=== PATIENT | female | born 1975 | race Caucasian/White ===

== ENCOUNTER → 2018-07-14 10:11 | Outpatient (CLI) | payer OTHER, SELFPAY ==
--- NOTE | 2018-07-14 10:34 | BI_ITS ---
MAMMOGRAPHY - BILATERAL SCREENING REASON FOR EXAM: Female, 43 years old. Routine annual screening examination. PERTINENT HISTORY: Mother with breast cancer. Aunt with breast cancer. TECHNIQUE: Digital bilateral breast john (3D mammographic acquisition) in the CC and MLO projections. 2-D mediolateral oblique (MLO) and craniocaudad (CC) views of both breasts were obtained. CAD: Full Field Digital Mammography with Computer Added Detection was performed. COMPARISON: Comparison is made with prior study dated January 14, 2015. FINDINGS: Breast Composition: The breasts are heterogeneously dense, which may obscure small masses. There are no dominant masses or suspicious calcifications. No other significant abnormalities are identified. There has been no significant change since the prior study. BI/SCREENING MAMM (CAD), BILAT IMPRESSION: Stable bilateral screening mammogram. Yearly follow-up mammogram recommended. (A) ASSESSMENT CATEGORY: BIRADS Category 1: Negative. A letter regarding these results will be sent to the patient by the facility within 30 days. Approximately 10% of breast cancers are not detected by mammography. A normal mammogram should not delay biopsy of a clinically suspicious abnormality. [id number] Electronically Signed: Sree Corona MD at 14:48 EDT Tel [phone], Service support ,
== END ==
PROVIDERS: Family Provider Nurse Practitioner; PCP Nurse Practitioner; Visit Provider Nurse Practitioner
DX: Z12.31 Encounter for screening mammogram for malignant neoplasm of breast (principal)
CPT/HCPCS: 77063; 77067

== ENCOUNTER → 2019-03-22 | Outpatient (CLI) | payer OTHER, SELFPAY ==
[2016-08-07 18:12] VITALS: BMI 23.1
[2019-03-22 16:11] LABS: Bacteria 0 SEEN /hpf (None Seen); Mucous, Urine 0 SEEN /hpf (<or=2+); White Blood Cells 0 SEEN /hpf (0-5)
[2019-03-22 17:27] LABS: Absolute Lymphocyte Count 2.71 X10^3/ul (0.83-4.51); Absolute Neutrophil Count 8.3 X10^3/uL (2.0-7.7); Basophil# 0.02 X10^3/uL; Basophil% 0.2 % (0-1); Eosinophil# 0.23 X10^3/uL; Eosinophils% 1.9 % (0-5); Hematocrit 43.2 % (37-47); Hemoglobin 14.6 g/dl (12.0-15.0); Lymphocyte # 2.71 X10^3/ul (4.0); Lymphocyte % 22.7 % (19-41); Mean Corp Hgb Conc 33.8 g/gl (32-36); Mean Corpuscular Hgb 30.4 pg (27.0-32.0); Mean Corpuscular Volume 89.8 fL (81-99); Mean Platelet Vol. 11.7 fl (6.2-12.0); Monocyte# 0.67 X10^3/uL; Monocyte% 5.6 % (0-10); Neutrophil # 8.29 X10^3/uL (2.7-7.7); Neutrophil % 69.3 % (47-70); Platelet Count 244 K/mm3 (150-450); RBC Distribution Width CV 13.2 % (11.6-14.6); RBC Distribution Width SD 43.6 fl (35.1-43.9); Red Blood Count 4.81 M/mm3 (4.2-5.4)
[2019-03-22 17:29] LABS: POSITIVE COUNT NO; POSITIVE DIFFERENTIAL NO; POSITIVE MORPHOLOGY NO
[2019-03-22 17:31] LABS: Color, Urine Yellow (Yellow); Glucose, Dipstick Normal (Normal); Ketone-Dipstick Negative (Negative); Leukocyte Esterase-Dipstick Negative /ul (Negative); Nitrite-Dipstick Negative (Negative); Occult Blood-Urine 150 /ul (Negative); Protein-Dipstick Negative (Negative); Specific Gravity, Urine 1.015 (1.002-1.030); Urine Bilirubin Dipstick Negative (Negative); Urine Clarity Clear (Clear); Urine Urobilinogen Normal (Normal)
[2019-03-22 17:40] LABS: Red Blood Cells-Urine 0-5 SEEN /hpf (0-5); Squamous Epithelial Cells - UA 0-5 SEEN /hpf (5-10); Transitional Epithelial - Ur 0-5 SEEN /hpf (0-5)
[2019-03-22 17:42] LABS: Erythrocyte Sedimentation Rate 13 mm/hr (0-20)
[2019-03-22 18:52] LABS: AST(SGOT) 13 U/L (15-37); Alanine Aminotransfer ALT/SGPT 28 U/L (13-56); Albumin, Serum 3.6 g/dL (3.2-5.0); Alkaline Phosphatase 123 U/L (45-117); Anion Gap 8 (5-15); BUN 14 mg/dL (7-18); BUN/Creat Ratio 20.3 RATIO (10-20); Calcium,Total 8.9 mg/dL (8.5-10.1); Chloride 104 mmol/L (98-107); Creatinine, Serum 0.69 mg/dL (0.55-1.02); EST Glomerular Filtration Rate 98 mL/min (>60); Est Glom Filt Rate - Afr Amer 118 mL/min (>60); Estradiol 99.4 pg/mL; Follicle Stimulating Hormone 5.2 mIU/mL; Free T3 3.2 pg/mL (2.18-3.98); Globulin 3.5 g/dL (2.2-4.2); Glucose 144 mg/dL (74-106); Luteinizing Hormone 7.2 mIU/mL; Potassium 3.7 mmol/L (3.5-5.1); Protein, Total 7.1 g/dL (6.4-8.2); Sodium Level 137 mmol/L (136-145); T4 Free Direct 1.09 ng/dL (0.76-1.46); Thyroid Stim Hormone (TSH) 1.52 uIU/mL (0.358-3.74)
[2019-03-24 13:58] LABS: DHEA Sulfate 82.7 ug/dL (41.2-243.7)
== END | disposition home or self-care (01) ==
LOC: MFPLAB 16:09
PROVIDERS: Family Provider Family Medicine; PCP Family Medicine; Referring Provider Family Medicine; Visit Provider Family Medicine
DX: R63.5 Abnormal weight gain (principal)
CPT/HCPCS: 36415; 80053; 81001; 82533; 82627; 82670; 83001; 83002; 84403; 84439; 84443; 84481; 85025; 85652; 82626

== ENCOUNTER → 2019-04-24 | Outpatient (CLI) | payer OTHER, SELFPAY ==
[2016-08-07 18:12] VITALS: BMI 23.1
--- NOTE | 2019-04-24 15:42 | RAD_ITS ---
STUDY: X-RAY CHEST REASON FOR EXAM: Female, 44 years old. Persistent cough x 6 weeks. History of right lung base nodule. TECHNIQUE: PA and lateral views of the chest. COMPARISON: CT chest with contrast June 25, 2014 FINDINGS: Subcentimeter nodule in the inferolateral right lung base is faintly visualized between the anterior right seventh and eighth ribs on the frontal image. The lungs are otherwise clear and expanded. There is no demonstrated pleural abnormality. Normal size heart. Normal mediastinum and yusra. Normal visualized pulmonary arteries. Normal visualized aortic arch and descending thoracic aorta. Normal visualized thoracic spine. Normal visualized ribs, clavicles, and shoulders. There is no demonstrated abnormality of the visualized soft tissue structures of the upper abdomen. RAD/Chest PA and Lateral IMPRESSION: Stable small nodule inferolateral right lung base. No acute cardiopulmonary disease. Electronically Signed: Prince Sapp MD at 16:26 EDT , Service support ,
== END | disposition home or self-care (01) ==
LOC: RAD.FUTURE 15:41
PROVIDERS: Family Provider Family Medicine; PCP Family Medicine; Referring Provider Nurse Practitioner; Visit Provider Nurse Practitioner
DX: R05 Cough (principal)
CPT/HCPCS: 71046

== ENCOUNTER → 2019-05-20 | Outpatient (CLI) | payer OTHER, SELFPAY ==
[2016-08-07 18:12] VITALS: BMI 23.1
[2019-05-20 10:27] LABS: Anion Gap 8 (5-15); BUN 16 mg/dL (7-18); BUN/Creat Ratio 22.4 RATIO (10-20); Calcium,Total 8.9 mg/dL (8.5-10.1); Chloride 106 mmol/L (98-107); Creatinine, Serum 0.71 mg/dL (0.55-1.02); EST Glomerular Filtration Rate 94 mL/min (>60); Est Glom Filt Rate - Afr Amer 114 mL/min (>60); Glucose 149 mg/dL (74-106); Potassium 4.1 mmol/L (3.5-5.1); Sodium Level 138 mmol/L (136-145)
[2019-05-23 16:50] LABS: Epinephrine, 24Ur 5 ug/24 hr (0-20); Norepinephrine, 24Ur 96 ug/24 hr (0-135); VMA, 24UR 4.9 mg/24 hr (0.0-7.5)
[2019-05-24 13:05] LABS: Dopamine, 24Ur 246 ug/24 hr (0-510); Dopamine, UR 182 ug/L (Undefined); Epinephrine, Ur 4 ug/L (Undefined); Metanephrine, Ur 91 ug/L (Undefined); Metanephrines, 24Ur 123 ug/24 hr (45-290); Norepinephrine, Ur 71 ug/L (Undefined); Normetanephrines, 24Ur 514 ug/24 hr (82-500); Normetanephrines, Ur 381 ug/L (Undefined); VMA, UR 3.6 mg/L (Undefined)
== END | disposition home or self-care (01) ==
LOC: MFPLAB 08:31
PROVIDERS: Family Provider Family Medicine; PCP Family Medicine; Visit Provider Family Medicine
DX: I10 Essential (primary) hypertension (principal)
CPT/HCPCS: 36415; 80048; 82384; 83835; 84244; 84585

== ENCOUNTER → 2019-06-10 06:46 | Outpatient (CLI) | payer OTHER, SELFPAY ==
--- NOTE | 2019-06-10 06:49 | CT_ITS ---
STUDY: CT ABDOMEN WITHOUT CONTRAST REASON FOR EXAM: Female, 44 years old. Hypertension. RADIATION DOSAGE (If Supplied By Facility): CTDIvol = ( 19.35 ) mGy, DLP = ( 657.26 ) mGycm TECHNIQUE: Transaxial images were obtained without intravenous contrast, and oral contrast. Sagittal and coronal images were reconstructed. Individualized dose optimization techniques were used for this CT. COMPARISON: None. FINDINGS: The visualized lung bases are unremarkable. The visualized portions of the heart are within normal limits. Normal liver. Normal gallbladder and extrahepatic biliary system. Normal spleen. Normal pancreas. Normal bilateral adrenal glands. Normal right kidney. Normal left kidney. Normal visualized stomach. Normal small intestine. Normal colon. The appendix is visualized and appears normal. Normal abdominal aorta. Normal inferior vena cava. There is borderline retroperitoneal lymphadenopathy with enlarged nodes no greater than 10mm in the short axis diameter. There is a small umbilical hernia containing fat. Normal osseous structures. CT/Abdomen without IV Contrast IMPRESSION: Normal unenhanced CT of the abdomen. Electronically Signed: Sree Corona, at 8:54 EDT , Service support ,
== END ==
PROVIDERS: Family Provider Family Medicine; PCP Family Medicine; Referring Provider Family Medicine; Visit Provider Family Medicine
DX: I10 Essential (primary) hypertension (principal)
CPT/HCPCS: 74150

== ENCOUNTER → 2019-06-24 12:01 | Outpatient (CLI) | payer OTHER, SELFPAY ==
[2016-08-07 18:12] VITALS: BMI 23.1
[2019-07-02 14:33] LABS: Aldosterone, Serum 1.4 ng/dL (0.0-30.0); Renin, Plasma 7.462 ng/mL/hr (0.167-5.380)
== END ==
PROVIDERS: Family Provider Family Medicine; PCP Family Medicine; Referring Provider Family Medicine; Visit Provider Family Medicine
DX: I10 Essential (primary) hypertension (principal)
CPT/HCPCS: 36415; 82088; 84244

== ENCOUNTER → 2019-07-25 09:33 | Outpatient (CLI) | payer OTHER, SELFPAY ==
[2016-08-07 18:12] VITALS: BMI 23.1
--- NOTE | 2019-07-25 09:35 | RDU_ITS ---
Reason For Study: HTN Right Renal Artery Left Renal Artery Right renal artery ostium Left renal artery ostium 146.0/32.2 133.3/55.6 RSV/EDV. PSV/EDV. Right renal artery proximal Left renal artery proximal PSV/EDV 172.1/68.6 PSV/EDV. 177.4/51.8 . Right renal artery mid 179.5/59.2 Left renal artery mid 169.5/55.7 PSV/EDV. PSV/EDV . Right renal artery distal Left renal artery distal 170.8/56.8 130.2/49.2 PSV/EDV. PSV/EDV. Right Renal Parenchyma Left Renal Parenchyma Upper Pole Medula 65.1/25.9 Left upper pole medulla 63.4/24.5 PSV/EDV. PSV/EDV . Right upper pole medulla EDR .4 . Left upper pole medulla EDR .39 . Right upper pole medulla R.I. .6 . Left upper pole medulla R.I. .61 . Upper Kel Cortx 35.3/11.9 PSV/EDV. UP Cortex 40.0/14.1 PSV/EDV. Right upper pole cortex EDR .34 . Left upper pole cortex EDR .35 . Right upper pole cortex R.I. .66 . Left upper pole cortex R.I. .65 . Right lower Pole medulla 56.0/19.7 Left lower Pole medulla 51.7/19.3 PSV/EDV . PSV/EDV . Right lower pole medulla EDR .35 . Left lower pole medulla EDR .37 . Right lower pole medulla R.I. .65 . Left lower pole medulla R.I. .63 . Lower Pole Cortex 56.0/19.7 Lower Pole Cortx 40.0/12.8 PSV/EDV. PSV/EDV. Left lower pole cortex EDR .32 . Right lower pole cortex EDR .35 . Left lower pole cortex R.I. .68 . Right lower pole cortex R.I. .65 . Left Renal Hilar Right Renal Hilar LT Hilar avg 62.1/23.2 PSV/EDV . Right Hilar avg 120.1/35.7 PSV/EDV. Left hilar acceleration time 50.0 Right hilar acceleration time 30.0 m/sec. m/sec. Left Renal Dimensions Right Renal Dimensions Left kidney size 10.6 cm . Right kidney size 10.1 cm . Left cortical dimension 1.46 cm . Right cortical dimension 1.53 cm . Aorta Proximal abdominal aorta 1.64 x 1.62 cm . Proximal abdominal aorta peak systolic velocity is 102.7 cm/sec . Distal abdominal aorta 1.24 x 1.24 cm . Distal abdominal aorta peak systolic velocity is 86.2 cm/sec . Normal Renal Veins bilat. Interpretation Summary Dimensions of the intra-abdominal aorta appear normal, without evidence of aneurysmal dilatation. Renal artery velocities are bilaterally normal. Acceleration times are normal bilaterally. There is no evidence of hemodynamically significant renal artery stenosis on either side. Renovascular resistance appears to be bilaterally normal . Cortical dimensions are bilaterally normal. Kidneys appear normal in size bilaterally. Ordering Physician: Naveen Cueto Performed By: Fazal Huang RVT
== END ==
PROVIDERS: Family Provider Family Medicine; PCP Family Medicine; Referring Provider Family Medicine; Visit Provider Family Medicine
DX: I10 Essential (primary) hypertension (principal)
CPT/HCPCS: 93975

== ENCOUNTER → 2019-08-01 16:38 | Outpatient (CLI) | payer OTHER, SELFPAY ==
[2016-08-07 18:12] VITALS: BMI 23.1
--- NOTE | 2019-08-01 16:40 | CT_ITS ---
STUDY: CT CHEST WITH CONTRAST REASON FOR EXAM: Female, 44 years old. Cough RADIATION DOSAGE (If Supplied By Facility): DLP = ( 390.52 ) mGycm TECHNIQUE: Transaxial imaging was performed following intravenous administration of 100 ml of Isovue 300 contrast material. Coronal and sagittal reformatted images were created. Individualized dose optimization techniques were used for this CT. COMPARISON: None FINDINGS: Moderate emphysema is present. There are no pulmonary infiltrates or pleural effusions. Right medial lung base atelectasis/scarring is present. There is a right lower lobe 4 mm nodule, series 4 image 76. There is no consolidation. There is no pneumothorax. The heart and pericardium are within normal limits. There is no thoracic lymphadenopathy. There is no evidence of thoracic aortic aneurysm. Images through the upper abdomen demonstrate no significant abnormality. There are no destructive osseous lesions. CT/Chest WITH Contrast IMPRESSION: Moderate emphysema. Right lower lobe 4 mm nodule. One-year follow-up is recommended. Electronically Signed: Palmer Del Valle, at 17:54 EST Tel , Service support ,
== END ==
PROVIDERS: Family Provider Family Medicine; PCP Family Medicine; Referring Provider Family Medicine; Visit Provider Family Medicine
DX: R05 Cough (principal)
CPT/HCPCS: 71260; Q9967

== ENCOUNTER → 2019-10-15 17:54 | Outpatient (CLI) | payer OTHER, SELFPAY ==
[2016-08-07 18:12] VITALS: BMI 23.1
[2019-10-15 17:56] LABS: Bacteria 0 SEEN /hpf (None Seen); Mucous, Urine 0 SEEN /hpf (<or=2+); White Blood Cells 0 SEEN /hpf (0-5)
[2019-10-15 18:19] LABS: Color, Urine Yellow (Yellow); Glucose, Dipstick Normal (Normal); Ketone-Dipstick 5 mg/dl (Negative); Leukocyte Esterase-Dipstick Negative /ul (Negative); Nitrite-Dipstick Negative (Negative); Occult Blood-Urine 150 /ul (Negative); Protein-Dipstick Negative (Negative); Specific Gravity, Urine 1.025 (1.002-1.030); Urine Bilirubin Dipstick Negative (Negative); Urine Clarity Clear (Clear); Urine Urobilinogen Normal (Normal)
[2019-10-15 18:36] LABS: Squamous Epithelial Cells - UA 5-10 SEEN /hpf (5-10)
[2019-10-15 18:37] LABS: Red Blood Cells-Urine 0-5 SEEN /hpf (0-5)
== END ==
PROVIDERS: PCP Family Medicine; Referring Provider Family Medicine; Visit Provider Family Medicine
DX: R35.0 Frequency of micturition (principal)
CPT/HCPCS: 81001; 87086; 87088

== ENCOUNTER → 2019-11-19 12:28 | Outpatient (CLI) | payer OTHER, SELFPAY ==
[2019-11-18 08:29] VITALS: BMI 23.1
[2019-11-19 14:04] LABS: Glucose 110 mg/dL (74-106)
[2019-11-19 14:36] LABS: Vitamin D,25 Hydroxy 16.2 ng/mL
[2019-11-20 20:03] LABS: C-Peptide 3.4 ng/mL (1.1-4.4)
== END ==
PROVIDERS: PCP Family Medicine; Referring Provider Internal Medicine Endocrinology, Diabetes & Metabolism; Visit Provider Internal Medicine Endocrinology, Diabetes & Metabolism
DX: E55.9 Vitamin D deficiency, unspecified (principal); E11.9 Type 2 diabetes mellitus without complications
CPT/HCPCS: 82306; 82947; 84681

== ENCOUNTER → 2020-06-18 | Outpatient (CLI) | payer OTHER, SELFPAY ==
[2019-11-18 08:29] VITALS: BMI 23.1
== END | disposition home or self-care (01) ==
PROVIDERS: PCP Family Medicine; Referring Provider Family Medicine; Visit Provider Family Medicine
DX: Z11.59 Encounter for screening for other viral diseases (principal)
CPT/HCPCS: 87635; U0003

== ENCOUNTER → 2020-06-30 09:36 | Outpatient (CLI) | payer OTHER, SELFPAY ==
[2019-11-18 08:29] VITALS: BMI 23.1
[2020-06-30 13:02] LABS: AST(SGOT) 10 U/L (15-37); Alanine Aminotransfer ALT/SGPT 33 U/L (13-56); Alkaline Phosphatase 123 U/L (45-117); Anion Gap 5 (5-15); BUN 19 mg/dL (7-18); BUN/Creat Ratio 21.5 RATIO (10-20); Calcium,Total 9.2 mg/dL (8.5-10.1); Chloride 104 mmol/L (98-107); Cholesterol 196 mg/dL (200); Creatinine, Serum 0.88 mg/dL (0.55-1.02); EST Glomerular Filtration Rate 73 mL/min (>60); Est Glom Filt Rate - Afr Amer 88 mL/min (>60); Globulin 3.9 g/dL (2.2-4.2); Glucose 93 mg/dL (74-106); High Density Lipoprotein 36 mg/dL; Potassium 3.8 mmol/L (3.5-5.1); Protein, Total 7.9 g/dL (6.4-8.2); Sodium Level 135 mmol/L (136-145); Thyroid Stim Hormone (TSH) 1.36 uIU/mL (0.358-3.74); Triglycerides 153 mg/dL; Very Low Density Lipoprotein 31 mg/dL (5-40)
== END ==
PROVIDERS: PCP Family Medicine; Referring Provider Family Medicine; Visit Provider Family Medicine
DX: E11.9 Type 2 diabetes mellitus without complications (principal)
CPT/HCPCS: 36415; 80053; 80061; 84443

== ENCOUNTER → 2021-01-26 08:23 | Outpatient (CLI) | payer OTHER, SELFPAY ==
[2019-11-18 08:29] VITALS: BMI 23.1
[2021-01-26 10:09] LABS: Hematocrit 44.9 % (37-47); Hemoglobin 14.3 g/dL (12.0-15.0); Mean Corp Hgb Conc 31.8 g/dL (32-36); Mean Corpuscular Hgb 29.1 pg (27.0-32.0); Mean Corpuscular Volume 91.4 fL (81-99); Mean Platelet Vol. 11.7 fl (6.2-12.0); Platelet Count 310 K/mm3 (150-450); RBC Distribution Width CV 13.2 % (11.6-14.6); RBC Distribution Width SD 45.2 fl (35.1-43.9); Red Blood Count 4.91 M/mm3 (4.2-5.4); White Blood Count 10.1 K/mm3 (4.4-11.0)
[2021-01-26 10:40] LABS: ALB/GLOB Ratio 1.1 RATIO (0.9-2.4); AST(SGOT) 11 U/L (15-37); Alanine Aminotransfer ALT/SGPT 21 U/L (13-56); Albumin, Serum 3.8 g/dL (3.2-5.0); Alkaline Phosphatase 111 U/L (45-117); Anion Gap 6 (5-15); BUN 17 mg/dL (7-18); BUN/Creat Ratio 21.6 RATIO (10-20); Chloride 105 mmol/L (98-107); Cholesterol 186 mg/dL (200); Creatinine, Serum 0.79 mg/dL (0.55-1.02); EST Glomerular Filtration Rate 83 mL/min (>60); Est Glom Filt Rate - Afr Amer 101 mL/min (>60); Globulin 3.5 g/dL (2.2-4.2); Glucose 106 mg/dL (74-106); High Density Lipoprotein 41 mg/dL; Potassium 3.7 mmol/L (3.5-5.1); Protein, Total 7.3 g/dL (6.4-8.2); Sodium Level 139 mmol/L (136-145); Triglycerides 83 mg/dL; Very Low Density Lipoprotein 17 mg/dL (5-40)
== END ==
PROVIDERS: PCP Family Medicine; Referring Provider Family Medicine; Visit Provider Family Medicine
DX: I10 Essential (primary) hypertension (principal); E11.9 Type 2 diabetes mellitus without complications
CPT/HCPCS: 36415; 80053; 80061; 85027

== ENCOUNTER → 2021-02-15 14:14 | Outpatient (CLI) | payer OTHER, SELFPAY ==
[2019-11-18 08:29] VITALS: BMI 23.1
--- NOTE | 2021-02-15 14:17 | CT_ITS ---
STUDY: CT CHEST WITHOUT CONTRAST REASON FOR EXAM: Female, 45 years old. LUNG NODULE RADIATION DOSAGE (If Supplied By Facility): CTDIvol = ( 6.84 ) mGy, DLP = ( 220.80 ) mGycm TECHNIQUE: Transaxial imaging was performed without the administration of intravenous contrast material. Individualized dose optimization techniques were used for this CT. COMPARISON: 08/01/19. FINDINGS: There is diffuse emphysema. Reidentified right lower lobe nodule measures approximately 5 mm series 2 image 71. There is no demonstrated pleural abnormality. Normal heart and pericardium. Normal mediastinum. Normal hilar regions. Normal unenhanced pulmonary arteries. Normal aorta arch and descending thoracic aorta. Normal osseous structures. There is no demonstrated abnormality of the visualized upper abdomen. CT/Chest without Contrast IMPRESSION: The right lower lobe pulmonary nodule is overall similar in size compared to prior when accounting for differences in technique and measures approximately 5 mm. Fleischner Society Recommendations for Follow-up and Management of Nodules Smaller than 8 mm Detected Incidentally at Nonscreening CT. Nodule size < or = 4 mm: Low-Risk Patient - No follow-up needed. High-Risk Patient - Follow-up CT at 12 months; if unchanged, no further follow-up. Nodule size > 4-6 mm: Low-Risk Patient - Follow-up CT at 12 months; if unchanged, no further follow-up. High-Risk Patient - Initial follow-up CT at 6-12 months then at 18-24 months if no change. Nodule size > 6-8 mm: Low-Risk Patient - Initial follow-up CT at 6-12 months then at 18-24 months if no change. High-Risk Patient - Initial follow-up CT at 3-6 months then at 9-12 and 24 months if no change. Nodule size > 8 mm: Low-Risk Patient - Follow-up CT at around 3,9 and 24 months. Dynamic contrast-enhanced CT, PET and/or biopsy. High-Risk Patient - Same as for low-risk patient. Low-Risk = Minimal or absent history of smoking and of other known risk factors. High-Risk = History of smoking or of other known risk factors. Electronically Signed: Irvin Rojas MD at 19:49 EDT Tel , Service support ,
== END ==
PROVIDERS: PCP Family Medicine; Referring Provider Family Medicine; Visit Provider Family Medicine
DX: R91.1 Solitary pulmonary nodule (principal)
CPT/HCPCS: 71250

== ENCOUNTER → 2021-08-26 | Outpatient (CLI) | payer OTHER, SELFPAY | END | disposition home or self-care (01) | LOC: MFPLAB 08:27 → LABSPEC 08:28 | PROVIDERS: PCP Family Medicine; Referring Provider Family Medicine; Visit Provider Family Medicine | DX: R39.15 Urgency of urination (principal) | CPT/HCPCS: 87086; 87088 ==

== ENCOUNTER 2022-01-09 03:45 | Emergency (ER) | payer OTHER, SELFPAY ==
[2022-01-09 03:46] VITALS: BP 170/88; PULSE 65; RESP 16; TEMP 36.4; O2SAT 99; BMI 28.5
--- NOTE | 2022-01-09 04:00 | EDS_ITS ---
HPI HPI - GI History of Present Illness Chief Complaint: Abd Pain Informant: patient and spouse/S.O. Abdominal Pain/Flank Pain Onset: Hours (2.5) Context: Sudden Onset (Woke her up from sleep) Timing: Continuous and Waxes and wanes Quality: Aching (And squeezing) Location: RUQ (Radiating into right parascapular area/shoulder/back) Current Severity: Severe Maximum Severity: Severe Worsened by: Nothing Relieved by: Nothing Nausea/Vomiting/Emesis GI Symptom: Positive for Nausea; Negative for Vomiting Diarrhea/Melena/Hematochezia GI Symptom: Negative for Diarrhea, Melena and Hematochezia Associated Symptoms Associated Symptoms: Negative for Dysuria, Frequency and Hematuria Narrative Narrative: Patient ate pizza for dinner before she went to bed, she woke up with excruciating pain in her right upper quadrant radiating into her right mid and upper back, pain is colicky and persistent. Never had this before. Had a history of hysterectomy but no other abdominal surgeries and none recently. No urinary symptoms. Nausea but no vomiting. No jaundice or itching recently. PFSH PFS Medical History Essential tremor H/O urinary tract infection HTN (hypertension) Kidney stones Lupus Rheumatoid arthritis Home Medications lisinopril 10 mg-hydrochlorothiazide 12.5 mg tablet 1 tab PO DAILY 08/05/19 [History Last Taken Unknown] topiramate 100 mg PO BID 01/09/22 [History Last Taken Unknown] Allergy/AdvReac Type Severity Reaction Status Date / Time No Known Allergies Allergy Verified 01/09/22 03:48 Family History Mother Autoimmune disorder Breast cancer Parkinsons disease Hypertension Sister Autoimmune disorder Aunt Breast cancer Brother Diabetes Father Diabetes Myocardial infarction, Onset Age: 49 Hypertension CVA (cerebral vascular accident) Social History Smoking Status: Heavy Smoker (>10/day) ROS ROS ED Constitutional Constitutional ED: Denies chills or fever(s) Eyes Eyes: Denies change in vision or diplopia ENT ENT ED: Denies rhinorrhea or sore throat Cardiovascular Cardiovascular: Denies chest pain or palpitations Respiratory/Chest Respiratory/Chest: Denies cough or dyspnea Gastrointestinal Gastrointestinal: Reports as per HPI and abdominal pain; Denies diarrhea, nausea or vomiting Genitourinary Genitourinary ED: Denies dysuria or hematuria Musculoskeletal Musculoskeletal: Reports as per HPI and back pain; Denies neck pain Integumentary Denies abscess or rash Neurologic Neurologic: Denies headache(s), paresthesias or weakness Psychiatric Psychiatric: Denies anxiety or suicidal thoughts EXAM Physical Exam Const Vital Signs: 01/09/22 03:46 Temperature 97.5 F L Temperature Source Oral Pulse Rate 65 Respiratory Rate 16 Blood Pressure 170/88 H Blood Pressure Mean 115 Pulse Ox 99 Oxygen Delivery Method Room Air Positive well nourished and well developed General Appearance ED: well developed and NAD HEENT Reports moist mucous membranes normocephalic and atraumatic Eyes PERRL and EOMs intact bilaterally Neck full ROM and supple Resp normal respiratory effort and clear to auscultation bilaterally Cardio regular rate, regular rhythm and no murmurs GI non-distended GI Narrative: Very tender right upper quadrant with voluntary guarding, no rebound tenderness. Less tender in the epigastrium, otherwise benign abdomen without any other tenderness. Auscultation: normoactive bowel sounds Palpation: soft Back/Spine no CVA tenderness General Back: other FROM Extremity normal to inspection General Extremety ED: Negative for edema, pulses abnormal or tenderness General Extremity: Negative for edema or pulses abnormal Neuro oriented x3, CN's II-XII intact bilaterally and no sensory deficits noted Sensorium / Orientation: awake and alert Motor Exam: strength 5/5 throughout Skin no rashes or lesions noted and no wounds MDM MDM MDM Narrative Medical decision making narrative: Patient presents Monday overnight shift when ultrasounds not available so I did a bedside screening ultrasound here in the emergency department, she has obvious multiple large shadowing stones. I ultrasounded her after she received morphine and Toradol and her pain was resolved and sonographic Cisse is negative. She had a mild leukocytosis at 12.0, so I sent her for CT scan to look for any signs of acute cholecystitis. It was negative/normal. It did show an incidental dermoid cyst in the right ovary which I discussed with her. It is an incidental finding and not causing her pain right now. After Toradol and morphine she is feeling much better and now on reexamination, she is barely tender and a negative Cisse's. At this time I am comfortable with her going home. I will refer her to the surgeon on- call and we discussed a low-fat diet, and reasons to return. She is comfortable with that plan. Lab Data Attestation: I reviewed the patient's lab results. Labs: Laboratory Results - last 24 hr 01/09/22 01/09/22 01/09/22 04:05 04:05 04:20 WBC 12.0 H RBC 4.74 Hgb 14.4 Hct 43.6 MCV 92.0 MCH 30.4 MCHC 33.0 RDW Std Deviation 46.2 H RDW Coeff of [place] 13.6 Plt Count 281 MPV 11.1 Immature Gran % (Auto) 0.500 Neut % (Auto) 73.5 H Lymph % (Auto) 19.1 [place] % (Auto) 5.3 Eos % (Auto) 1.3 Baso % (Auto) 0.3 Absolute Neuts (auto) 8.8 H Absolute Lymphs (auto) 2.29 Nucleated RBC % 0 Sodium 143 Potassium 3.8 Chloride 113 H Carbon Dioxide 25.0 Anion Gap 5 BUN 26 H Creatinine 0.81 Estim Creat Clear Calc 74.14 Est GFR (MDRD) Af Amer 97 Est GFR (MDRD) Non-Af 80 BUN/Creatinine Ratio 32.1 H Glucose 172 H Calcium 8.6 Total Bilirubin 0.20 AST 27 ALT 34 Alkaline Phosphatase 111 Total Protein 7.1 Albumin 3.6 Globulin 3.5 Albumin/Globulin Ratio 1.0 Lipase 157 Urine Color Yellow Urine Clarity Clear Urine pH 5.0 Ur Specific [place] 1.030 Urine Protein Negative Urine Glucose (UA) Normal Urine Ketones Negative Urine Occult Blood 150 H Urine Nitrite Negative Urine Bilirubin Negative Urine Urobilinogen Normal Ur Leukocyte Esterase Negative Urine RBC 0-5 SEEN Urine WBC 0 SEEN Ur Squamous Epith Cells 0-5 SEEN Urine Bacteria 1+ Urine Mucus 0 SEEN Radiography Diagnostic Testing: Clinical Impression(s) from Imaging Studies Abdomen/Pelvis CT 01/09/22 04:19 IMPRESSION: Dermoid cyst in the right ovary, measures 5.7 cm. Electronically Signed: Isha Herbert MD at 5:24 EDT Reading Location ID and State: [facility] / [place] Tel , Service support , Discharge Plan Triage Chief Complaint: Abd Pain ED Provider: Jarrett Renteria Dx/Rx/DC Orders Clinical Impression: Biliary colic, Cholelithiasis, Dermoid cyst of right ovary Instructions: Discharge Instructions for ..., ED Gallstones with Biliary Colic Prescriptions: No Action lisinopril-hydrochlorothiazide 10-12.5 mg tablet 1 tab PO DAILY RF: 0 topiramate 100 mg Tablet 100 mg PO BID RF: 0 Primary Care Provider: Naveen Cueto Referrals: Naveen Cueto MD [Primary Care Provider] - Noreen Paul MD [STAFF PHYSICIAN] - (Call for appointment) Disposition Disposition: Home, Self Care
[2022-01-09 04:08] LABS: Absolute Lymphocyte Count 2.29 X10^3/uL (0.83-4.51); Absolute Neutrophil Count 8.8 X10^3/uL (2.0-7.7); Basophil# 0.04 X10^3/uL; Basophil% 0.3 % (0-1); Eosinophil# 0.16 X10^3/uL; Eosinophils% 1.3 % (0-5); Hematocrit 43.6 % (37-47); Hemoglobin 14.4 g/dL (12.0-15.0); Lymphocyte # 2.29 X10^3/ul (0.83-4.51); Lymphocyte % 19.1 % (19-41); Mean Corpuscular Hgb 30.4 pg (27.0-32.0); Mean Platelet Vol. 11.1 fl (6.2-12.0); Monocyte# 0.63 X10^3/uL; Monocyte% 5.3 % (0-10); NRBC Flagged by Analyzer 0 % (0-5); Neutrophil # 8.81 X10^3/uL (2.7-7.7); Neutrophil % 73.5 % (47-70); Platelet Count 281 K/mm3 (150-450); RBC Distribution Width CV 13.6 % (11.6-14.6); RBC Distribution Width SD 46.2 fl (35.1-43.9); Red Blood Count 4.74 M/mm3 (4.2-5.4)
[2022-01-09] MEDS: Ondansetron 4 MG/2 ML Vial IV (04:08)
[2022-01-09] MEDS: Ketorolac 30 MG/ML Syringe IV (04:08)
[2022-01-09] MEDS: Morphine 4 MG/ML Syringe IV (04:09)
--- NOTE | 2022-01-09 04:19 | CT_ITS ---
STUDY: CT ABDOMEN AND PELVIS WITH CONTRAST REASON FOR EXAM: Female, 46 years old. RUQ pain RADIATION DOSAGE (If Supplied By Facility): CTDIvol = ( 14.67 ) mGy, DLP = ( 974.67 ) mGycm TECHNIQUE: Transaxial images were obtained from the dome of the diaphragm to the symphysis pubis without oral contrast. IV 100mL Isovue-300 was administered. Sagittal and coronal images were reconstructed. Individualized dose optimization techniques were used for this CT. COMPARISON: None. FINDINGS: The visualized lung bases are unremarkable. The visualized portions of the heart are within normal limits. Normal liver. Normal gallbladder and extrahepatic biliary system. Normal spleen. Normal pancreas. Normal bilateral adrenal glands. Normal right kidney. Normal left kidney. Normal visualized stomach. Normal small intestine. Normal colon. The appendix is visualized and appears normal. Normal abdominal aorta. Normal inferior vena cava. Normal retroperitoneum. Normal urinary bladder. Dermoid cyst in the right ovary. Normal abdominal wall. Normal osseous structures. CT/Abdomen/Pelvis W IV Cont ONLY IMPRESSION: Dermoid cyst in the right ovary, measures 5.7 cm. Electronically Signed: Isha Herbert MD at 5:24 EDT ,
[2022-01-09 04:25] LABS: Mucous, Urine 0 SEEN /hpf (<or=2+); White Blood Cells 0 SEEN /hpf (0-5)
[2022-01-09 04:26] LABS: Color, Urine Yellow (Yellow); Glucose, Dipstick Normal (Normal); Ketone-Dipstick Negative (Negative); Leukocyte Esterase-Dipstick Negative /ul (Negative); Nitrite-Dipstick Negative (Negative); Occult Blood-Urine 150 /ul (Negative); Protein-Dipstick Negative (Negative); Urine Bilirubin Dipstick Negative (Negative); Urine Clarity Clear (Clear); Urine Urobilinogen Normal (Normal)
[2022-01-09 04:32] LABS: AST(SGOT) 27 U/L (15-37); Alanine Aminotransfer ALT/SGPT 34 U/L (13-56); Albumin, Serum 3.6 g/dL (3.2-5.0); Alkaline Phosphatase 111 U/L (45-117); Anion Gap 5 (5-15); BUN 26 mg/dL (7-18); BUN/Creat Ratio 32.1 RATIO (10-20); Calcium,Total 8.6 mg/dL (8.5-10.1); Chloride 113 mmol/L (98-107); Creatinine, Serum 0.81 mg/dL (0.55-1.02); EST Glomerular Filtration Rate 80 mL/min (>60); Est Glom Filt Rate - Afr Amer 97 mL/min (>60); Estimated Creatinine Clearance 74.14 ml/min; Globulin 3.5 g/dL (2.2-4.2); Glucose 172 mg/dL (74-106); Lipase 157 U/L (73-393); Potassium 3.8 mmol/L (3.5-5.1); Protein, Total 7.1 g/dL (6.4-8.2); Sodium Level 143 mmol/L (136-145)
[2022-01-09 05:00] LABS: Bacteria 1+ /hpf (None Seen); Red Blood Cells-Urine 0-5 SEEN /hpf (0-5); Squamous Epithelial Cells - UA 0-5 SEEN /hpf (5-10)
== END 2022-01-09 05:52 | disposition home or self-care (01) ==
PROVIDERS: Emergency Provider Emergency Medicine; PCP Family Medicine; Visit Provider Emergency Medicine
DX: K80.70 Calculus of gallbladder and bile duct without cholecystitis without obstruction (principal); M06.9 Rheumatoid arthritis, unspecified; M32.9 Systemic lupus erythematosus, unspecified; D27.0 Benign neoplasm of right ovary; G25.0 Essential tremor; Z87.440 Personal history of urinary (tract) infections; Z87.442 Personal history of urinary calculi; Z79.899 Other long term (current) drug therapy; F17.200 Nicotine dependence, unspecified, uncomplicated
CPT/HCPCS: 74177; 80053; 81001; 83690; 85025; 96361; 96374; 96375; 99283; J7040; Q9967; A4216; J2405

== ENCOUNTER 2022-01-17 10:15 | Day surgery (SDC) | payer OTHER, SELFPAY ==
[2022-01-15 10:52] LABS: Hemoglobin A1c 5.8 % (3.8-5.6)
[2022-01-17] VITALS (12 sets, daily range): BP systolic 124–165; BP diastolic 43–75; PULSE 48–77; RESP 14–16; TEMP 36.2–37; O2SAT 93–99; BMI 29.2
--- NOTE | 2022-01-17 10:23 | EKG12_ITS ---
Test Reason : PRE OP Blood Pressure : / mmHG Vent. Rate : 058 BPM Atrial Rate : 058 BPM P-R Int : 182 ms QRS Dur : 080 ms QT Int : 412 ms P-R-T Axes : 063 042 054 degrees QTc Int : 404 ms Sinus bradycardia Otherwise normal ECG Confirmed by MAHIN MCLEAN, OMKAR ([id number]), news videotape editor JAE HARRIS ([id number]) on 01/19/2022 10:08:39 AM Referred By: Noreen Paul Confirmed By:OMKAR STOCKTON MD
--- NOTE | 2022-01-17 10:31 | PCM.HP.BLA ---
History and Physical Date of Admission: 01/17/22 Date of Service: 01/13/22 MR#:[id number]:[id number]: GWEN OROPEZA [facility] #:[id number]:[id number] Provider:Jones Holt/Sex: 46/F [facility] Vital Signs 01/13/22 09:40 Height 5 ft 4 in Weight: 166 lb BMI 28.5 BP 129/79 H Blood Pressure Location Rt brachial Position Sitting Respiration 16 Intake Visit Reasons: 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 Chief Complaint: gallbladder Laboratory Manager Required: No Is patient in pain?: No Allergies No Known Allergies Allergy (Verified 01/13/22 09:39) Medications lisinopril 10 mg-hydrochlorothiazide 12.5 mg tablet 1 tab PO DAILY 08/05/19 [History Confirmed 01/13/22] topiramate 100 mg PO BID 01/09/22 [History Confirmed 01/13/22] PFSH Medical History (Updated 01/13/22 @ 09:40 by Gricelda Briggs) Essential tremor H/O urinary tract infection HTN (hypertension) Kidney stones Lupus Rheumatoid arthritis Surgical History (Updated 01/13/22 @ 09:40 by Gricelda Briggs) S/P hysterectomy S/P tubal ligation Family History Mother Autoimmune disorder Breast cancer Parkinsons disease Hypertension Sister Autoimmune disorder Aunt Breast cancer Brother Diabetes Father Diabetes Myocardial infarction, Onset Age: 49 Hypertension CVA (cerebral vascular accident) Social History (Updated 01/13/22 @ 09:40 by Gricelda Briggs) Smoking Status: Heavy Smoker (>10/day) alcohol intake: current HPI HPI HPI: GWEN OROPEZA, is a 46 F who presents to the office today for bowel sounds/right upper quadrant pain. Patient states that started having abdominal pain Monday night about 1:30 in the morning after eating around 10:00. Patient did go to the ER early Monday due to the pain. Patient had CT abdomen pelvis done which did not show signs of acute cholecystitis and did not note gallstones on the report however a bedside ultrasound was done by the ER physician did note gallstones. Patient's pain and nausea did improve. Patient did not vomit. Patient's white blood count was 12 with normal LFTs. Patient currently states pain is improved and she has been really watching her diet and not eating as much but has been able to drink. Did discuss CT abdomen pelvis with our radiologist who agree there are 2 gallstones in the gallbladder one 12 mm and one 9 mm. Patient has not had the COVID-vaccine. ROS General General: Yes weight change, appetite and fatigue; No colon cancer or breast cancer HEENT HEENT: No difficulty swallowing, eye injury, eye surgery, swollen glands or hoarseness Endo Endocrine: Yes diabetes mellitus; No thyroid disease, thyroid cancer, Hair loss, heat intolerance or cold intolerance Skin Skin: No rash or changing moles Musc Musculoskeletal: Yes rheumatoid arthritis; No back problems, arthritis, gout or joint pain Cardio Cardiovascular: Yes high blood pressure; No murmur, pacemaker, heart disease, atrial fibrillation, heart attack, heart stent, palpitations, shortness of breat with exertion or chest pain Psych Psychiatric: No depression, anxiety or hearing voices Resp Respiratory: No shortness of breath, No sleep apnea, No cough, No COPD, No asthma, No emphysema and No wheezing Gastro Gastrointestinal: Yes abdominal pain, No nausea or vomiting, No diarrhea, No constipation, No blood in stool, No acid reflux, No hemorrhoids, No ulcers, Yes gallbladder problem and No black,tarry stools Yony Hematologic: No blood thinners, No blood disorders, No bleeding, No anemia and No blood clots Neuro Neurologic: No abnormal speech and No confusion Exam Const General: cooperative, healthy appearing, comfortable and no acute distress [facility] Head: normocephalic and atraumatic Neck Neck: normal visual inspection Resp Effort & Inspection: normal respiratory effort Cardio Rate: regular rate GI Inspection: non-distended Palpation: soft, no guarding and nontender Skin General: no rashes or lesions noted Neuro General: patient oriented x3 Extrem General: no clubbing, cyanosis or edema Psych Affect: normal affect COVID (Procedure Consent) Procedure Criteria Procedure Criteria: Yes Elective The surgeon/proceduralist and patient have discussed in detail the risk of exposure to and/or potential harm posed by the COVID-19 virus with having a surgery/procedure at this time versus the risk of delaying the surgery/procedure. It is not possible to know either the risk of delaying the surgery or procedure or chance of getting an infection with perfect accuracy, but a joint decision was made between the patient and the surgeon/proceduralist to proceed at this time with the scheduled surgery/procedure as indicated on the consent form. Assessment and Plan Assessment and Plan (1) Cholelithiasis: Status: Acute Plan - Dr. Noreen Paul MD: Did review CT abdomen pelvis with the patient as well as talk to the radiologist who agreed there were gallstones near the neck of the gallbladder. Reviewed the anatomy with the patient and discussed the procedure: laparoscopic cholecystectomy with cholangiograms, possible open. Review risks including but not limited to bleeding, infection, hernia, bile leak, retained gallstones requiring another procedure ERCP- Endoscopic Retrograde Cholangiopancreatography, injury to another organ (bile ducts, common bile duct, small bowel, etc.) and conversion to an open procedure. All questions were answered. Noreen Paul M.D. Pager: [phone] [facility] [address] [place] [address] [place] [address] Office: [phone] Coding Level of Care Code Off vis,new,level 3 Diagnoses Cholelithiasis K80.20 01/13/22 0958<Electronically signed by Noreen Paul MD>Date Noreen Paul MD
[2022-01-17] MEDS: Lactated Ringers 1,000 ML 15 ML IV ×2 (11:15→13:48)
[2022-01-17 11:36] LABS: Bedside Glucose 113 mg/dL (74-106)
--- NOTE | 2022-01-17 11:45 | GALL_PTH ---
PATIENT: GWEN OROPEZA [place] [facility] [place][id number] AGE/SX: 46/F ROOM: RE01/17/[address]: Dr. Noreen Paul MD : 1975 BED: DIS: 01/17/2022 SPEC #: [id number] RECD: 01/17/22 13:44 STATUS: MARCY REJeison #: [id number] NIKOS: 01/17/22 11:[address]: Noreen Paul DEPT: SURGICAL PATHOLOGY RECD BY: Emily Macdonald ENTERED: 01/17/22 14:09 SP TYPE: LORA CHRISTY DR: Dr. Luis Cueto MD Tissues: Gallbladder, NOS Procedures: Surgery Specimen Level III HEADER OPERATION: Laparoscopic cholecystectomy with IOC PRE-OP DIAGNOSIS: Cholelithiasis TISSUE SUBMITTED: Gallbladder MICROSCOPIC DIAGNOSIS Gallbladder, cholecystectomy: Chronic cholecystitis and cholelithiasis. SJ:ashlyn 01/18/2022 MICROSCOPIC DESCRIPTION Slides are reviewed. GROSS DESCRIPTION Received is one container labeled with the patient's name and designated gallbladder. The specimen consists of a gallbladder measuring 9 cm in length and up to 4 cm in diameter. The external surface is pink-grady, smooth and glistening for the most part. Focally it is granular, hemorrhagic and contains cautery artifact. The gallbladder contains green-yellow mucoid bile and multiple yellowish-orange mulberry stones measuring in aggregate 4 x 2 x 1 cm and 0.2 to 1.5 cm in greatest dimension. The mucosa is bile-stained and without any mass lesions. The gallbladder wall measures up to 0.2 cm in thickness. Focal areas also show increased amount of subserosal fat. Host Hostess sections from the gallbladder and the cystic duct are submitted in one cassette. / SJ:ashlyn 01/17/2022 TC:3 CPT: 95507
[2022-01-17] MEDS: Cefotetan 2 GM in 0.9% NS 100 ML IV (12:00)
--- NOTE | 2022-01-17 12:08 | RAD_ITS ---
INDICATION: PAIN EXAMINATION/TECHNIQUE: Fluoroscopic cholangiogram limited spot intraoperative films are presented for evaluation. Total Fluoroscopic Time: 11.3 seconds AND number of Fluoroscopic Images: 3 COMPARISON: CT abdomen and pelvis from 01/09/2022 FINDINGS: A catheter is seen cannulating the cystic duct. There is opacification of the gallbladder, cystic duct common bile duct and the intrahepatic ducts. There are no filling defects strictures or other abnormal findings in the biliary tree. Common bile duct tapers normally with normal excretion of contrast into the duodenum. RAD/Cholangiogram/ O R,Initial IMPRESSION: Unremarkable intraoperative cholangiogram. Please see intraoperative report for detailed findings. Electronically Signed: Yannick Marte, at 15:47 EDT ,
--- NOTE | 2022-01-17 13:06 | OP.PCM_ITS ---
Report of Operation Date of Procedure: 01/17/22 Pre-Operative Diagnosis: Cholelithiasis, right upper quadrant pain, cholecystit is Post-Operative Diagnosis: Same Surgery/Procedure Performed:: Laparoscopic cholecystectomy with cholangiograms Surgeon: Noreen Paul varying exceptionalities teacher: Tamra Hubbard Type of Anesthesia: General/Supplemental Anesthesiologist: Kahlil Golden Special Medications: Cefotetan 2 g IV x1 Specimen's removed: Gallbladder and stones Estimated Blood Loss (mL): < 10 cc Description of Procedure: Indications: this is a 46 year-old female who developed abdominal pain/nausea/vomiting and on workup was found to have cholelithiasis, with a normal common bile duct. Laparoscopic cholecystectomy was elected. Description procedure: The patient was placed on operating table in supine position. A timeout was completed verifying correct patient, procedure, site, position and special equipment prior to beginning procedure. General Anesthesia was induced. The abdomen was prepped and draped in usual sterile fashion. An incision was made in the natural skin line above the umbilicus. The fascia was elevated and incised. The peritoneum was elevated and incised. Entry into the peritoneum was confirmed visually and no bowel was noted in the vicinity of the incision. Vieira trocar was placed. The abdomen was insufflated with carbon dioxide to a pressure of 12-15 mmHg. Patient tolerated insufflation well. The laparoscope was then inserted and abdomen inspected. No injuries from initial trocar placement were noted. Additional trochars were then inserted in the following locations 5 mm trocar in the epigastrium and 2 more 5 mm trochars along the right costal margin. The abdomen was inspected no abnormalities were found. The table is placed in reverse Trendelenburg position with the right side up. The dome of the gallbladder was grasped with atraumatic grasper passed through the lateral port and retracted over the dome of the liver. Infundibulum was then grasped with atraumatic grasper through the midclavicular port and retracted to the right lower quadrant. This maneuver exposed Calot's triangle. The peritoneum overlying the gallbladder infundibulum was then incised and cystic duct and artery identified and circumferentially dissected. Joyner catheter was used for cholangiograms. The cholangiogram showed good filling of the common bile duct into the duodenum with no filling defects?after initial cholangiograms did not show emptying to the duodenum however no filling defects were seen?glucagon was given and Joyner catheter was tightened on the gallbladder contrast was visualized in duodenum, good filling of the right and left bile ducts as well. The cystic duct and artery were then doubly clipped and divided close to the gallbladder. The gallbladder then dissected from its peritoneal attachments by electrocautery. Hemostasis was checked and the gallbladder and contained stones were removed using the endoscopic retrieval bag through the umbilical port. The gallbladder is passed off table as specimen. The gallbladder fossa was irrigated with saline and hemostasis obtained. There is no evidence of bleeding from the gallbladder fossa or cystic artery leakage of bile from the cystic duct stump. Secondary trochars removed under direct vision. No bleeding was noted the trocar sites. The laparoscope was withdrawn and umbilical trocar removed. The abdomen was allowed to collapse. The fascia of the 12 mm trocar was closed with a [id number] 0 Vicryl suture. The skin was closed with sutures of 4-0 Monocryl and Steri-Strips. The patient was extubated. The patient tolerated procedure well and was taken to the postanesthesia care unit in stable condition. Complications none
--- NOTE | 2022-01-17 13:10 | EX.PCM.DISCH ---
Discharge Instructions Diet Discharge Diet: Light diet - advance as tolerated Activity Discharge Activity: May Not Drive (while taking narcotic pain medications. Or if too much abdominal pain to slam on the brakes if needed) May shower in (days): 1 Lifting Restrictions: no lifting >20 lbs x 2 wks, no strenuous exercise for 4 wks Dressing / Incision Call your doctor if your incision/area has: Continuous Slow Oozing, Sudden Increased Bleeding, Increased Pain/ Swelling, Increased Redness, Foul Smelling Discharge and Swelling at the incision site Call your doctor if you observe: Fever of 101 or Higher Remove Dressing in: 2 days Cleanse incision/area with: Soap & Water Additional Dressing/Incision Instructions:: Steri-Strips will fall off in 7 to 10 days, if they do not fall off okay to remove after 10 days. Follow Up Care Please Follow Up With: Noreen Paul MD When: Call the office for a follow-up appointment 2 weeks; after 5 PM and on the weekends call [phone] with any concerns. Test Results: Test results from this visit will be discussed in further detail at your follow-up appointment, if applicable. Discharge Plan Admission Attending Provider: Noreen Paul Primary Care Provider: Naveen Cueto Discharge Orders/Prescriptions Prescriptions: New hydrocodone-acetaminophen 5-325 mg tablet 1 tab PO Q4H PRN (Reason: pain) 3 Days Qty: 14 RF: 0 Continued lisinopril-hydrochlorothiazide 10-12.5 mg tablet 1 tab PO DAILY RF: 0 topiramate 100 mg Tablet 100 mg PO BID RF: 0 Referrals / Follow Up: Naveen Cueto MD [Primary Care Provider] - Disposition Disposition (needs filled in before D/C Order can be placed): Home, Self Care
[2022-01-17 13:55] LABS: Bedside Glucose 258 mg/dL (74-106)
== END 2022-01-17 16:22 | disposition home or self-care (01) ==
LOC: SDC 10:17 → AC 10:17
PROVIDERS: Anesthesiology; PCP Family Medicine; Referring Provider Surgery; Visit Provider Surgery
PROC: (CPT 47610; principal; 2022-01-17 11:25)
DX: K80.10 Calculus of gallbladder with chronic cholecystitis without obstruction (principal); M06.9 Rheumatoid arthritis, unspecified; M32.9 Systemic lupus erythematosus, unspecified; E11.9 Type 2 diabetes mellitus without complications; F17.200 Nicotine dependence, unspecified, uncomplicated; I10 Essential (primary) hypertension; G25.0 Essential tremor; Z87.440 Personal history of urinary (tract) infections; Z87.442 Personal history of urinary calculi; Z79.899 Other long term (current) drug therapy
CPT/HCPCS: 47563; 00790; 36415; 74300; 76000; 82962; 83036; 87426; 88304; 93005; J7120; J1610; J2405

== ENCOUNTER → 2022-04-11 | Outpatient (CLI) | payer OTHER, SELFPAY ==
--- NOTE | 2022-04-11 15:43 | BI_ITS ---
MAMMOGRAPHY - BILATERAL SCREENING REASON FOR EXAM: Female, 47 years old. Routine annual screening examination. PERTINENT HISTORY: Mother with breast cancer. Aunts with breast cancer. TECHNIQUE: Digital bilateral breast becca (3D mammographic acquisition) in the CC and MLO projections. 2-D mediolateral oblique (MLO) and craniocaudad (CC) views of both breasts were obtained. CAD: Full Field Digital Mammography with Computer Added Detection was performed. COMPARISON: Comparison is made with prior study dated 07/14/2018 and 01/14/2015. FINDINGS: Breast Composition: The breasts are heterogeneously dense, which may obscure small masses. There are no dominant masses or suspicious calcifications. Stable small benign-appearing bilateral axillary lymph nodes. No other significant abnormalities are identified. There has been no significant change since the prior study. BI/SCRN MAMM (CAD)W/BECCA BILAT IMPRESSION: Stable bilateral screening mammogram. Yearly follow-up mammogram recommended. (A) ASSESSMENT CATEGORY: BIRADS Category 2: Benign. A letter regarding these results will be sent to the patient by the facility within 30 days. Approximately 10% of breast cancers are not detected by mammography. A normal mammogram should not delay biopsy of a clinically suspicious abnormality. [id number] Electronically Signed: Sree Corona MD at 8:26 EDT ,
== END | disposition home or self-care (01) ==
LOC: OPBI 15:42
PROVIDERS: PCP Family Medicine; Visit Provider Family Medicine
DX: Z12.31 Encounter for screening mammogram for malignant neoplasm of breast (principal)
CPT/HCPCS: 77063; 77067

== ENCOUNTER → 2023-12-09 | Outpatient (CLI) | payer OTHER, SELFPAY ==
--- OUTSIDE RECORDS SUMMARY | 2023-12-09 07:51 | XMS RPT_ITS | CCD ---
Author Name Unknown Address [address] [place] [address] Organization [facility] Care Team Providers Care Archival Records Clerk Name Role Phone Taty Brown Unavailable Kadie Kaur Unavailable Unavailable Rachel Andersen Unavailable Unavailable Unavailable Unavailable Allergies Allergy Classification Reported Allergen(s) Allergy Type Date of Onset Reaction(s) Facility (3 sources) Doxycycline Drug Allergy [facility] Work Phone: Medications Completed/Discontinued Medications Medication Drug Class(es) Dates Sig (Normalized) Sig (Original) 200 actuat albuterol 0.09 mg/actuat metered dose inhaler (3 sources) beta2-Adrenergic Agonist Start: 03-27-2019 ProAir HFA 108 (90 Base) MCG/ACT Inhalation Aerosol Solution 2 (two) Puff tid or qid for 0 days Quantity: 1 {Inhaler} Refills: 0 Ordered: 27-Mar-2019 Taty Brown CNP, CNP, Mary E Start : 27-Mar-2019 Active amoxicillin 500 mg oral capsule (3 sources) Penicillin-class Antibacterial Start: 12-19-2014 End: 05-19-2015 take 1 capsule by mouth twice daily AMOXICILLIN, 500MG (Oral Capsule) 1 (one) Capsule bid for 0 days Quantity: 28 {Capsule} Refills: 0 Ordered: 19-May-2015 MONICA Chacon Start : 19-Dec-2014 End : 19-May-2015 Inactive amoxicillin 875 mg / clavulanate 125 mg oral tablet (3 sources) Penicillin-class Antibacterial Start: 05-10-2017 End: 05-24-2017 take 1 tablet by mouth twice daily Augmentin 875-125 MG Oral Tablet 1 (one) Tablet bid for 14 days Quantity: 28 {Tablet} Refills: 0 Ordered: 10-May-2017 Taty Brown CNP IsabellTaty gonzalez CNP Start : 10-May-2017 End : 24-May-2017 Inactive azithromycin 250 mg oral tablet (3 sources) Macrolide Antimicrobial Start: 08-26-2016 End: 10-12-2016 take 1 tablet by mouth once daily Zithromax Z-Marlon 250 MG Oral Tablet uad Tablet one qd until gone for 0 days Quantity: 1 {Package} Refills: 0 Ordered: 12-Oct-2016 Rachel Andersen LPN Start : 26-Aug-2016 End : 12-Oct-2016 Discontinued betamethasone 0.5 mg/ml / clotrimazole 10 mg/ml topical cream (3 sources) Azole Antifungal, Corticosteroid Start: 08-19-2014 End: 05-19-2015 CLOTRIMAZOLE-BETA METHASONE, 1-0.05% (External Cream) uad Cream to affected area(s) prn for 0 days Quantity: 15 {Gram} Refills: 3 Ordered: 19-May-2015 MONICA Chacon Start : 19-Aug-2014 End : 19-May-2015 Inactive 12 hr buPROPion hydrochloride 150 mg extended release oral tablet (3 sources) Aminoketone Start: 04-13-2016 End: 06-19-2017 take 1 tablet by mouth every eight hours Wellbutrin SR 150 MG Oral Tablet Extended Release 12 Hour 1 (one) Tablet ER 12HR bid for 0 days Quantity: 60 {Tablet} Refills: 2 Ordered: 19-Jun-2017 Rachel Andersen LPN Start : 13-Apr-2016 End : 19-Jun-2017 Discontinued Comments: Start 150mg qd x3 days, then twice daily. Separate doses by at least 8h, last dose no later than 6pm, stop smoking after5-7 days of treatment (treatment 7-12 weeks) Problems Active Problems Problem Classification Problem Date Documented Da te Episodic/Chronic Acute bronchitis (3 sources) Acute bronchitis; Translations: [Bronchitis, acute] 03-27-2019 Episodic Anxiety disorders (6 sources) Acute stress disorder; Translations: [Anxiety] Resolved: 05-19-2015 03-27-2019 Chronic Calculus of urinary tract (3 sources) History of calculus of kidney; Translations: [History of kidney stones] 03-27-2019 Episodic Diabetes mellitus without complication (6 sources) Impaired fasting glycaemia; Translations: [Impaired fasting glucose] 03-27-2019 Episodic Genitourinary symptoms and ill-defined conditions (6 sources) Urinary incontinence; Translations: [Urinary incontinence] Resolved: 02-12-2013 05-31-2013 Chronic Genitourinary symptoms and ill-defined conditions (20 sources) Blood in urine; Translations: [Dysuria] Onset: 11-22-2011 Resolved: 08-25-2017 03-27-2019 Episodic Past or Other Problems Problem Classification Problem Date Documented Date Episodic/Chronic Chronic obstructive pulmonary disease and bronchiectasis (3 sources) Chronic obstructive pulmonary disease and bronchiectasis Diabetes mellitus without complication (6 sources) Diabetes mellitus without complication Other aftercare (3 sources) High risk drug monitoring status; Translations: [Encounter for long-term (current) use of medications] Resolved: 05-31-2013 11-05-2015 Episodic Other connective tissue disease (3 sources) Pain in joint, hand; Translations: [Pain in joint, hand] Resolved: 06-19-2017 06-19-2017 Episodic Other infections; including parasitic (3 sources) Trichomonal vulvovaginitis; Translations: [Vulvovaginitis, trichomonal] Resolved: 07-17-2012 05-31-2013 Episodic Other inflammatory condition of skin (3 sources) Pruritus of skin; Translations: [Pruritic disorder] Resolved: 08-08-2012 10-20-2015 Episodic Other lower respiratory disease (3 sources) Dyspnea at rest; Translations: [Shortness of breath at rest] Resolved: 05-19-2015 05-19-2015 Episodic Other nervous system disorders (3 sources) Abnormal involuntary movement; Translations: [Unspecified abnormal involuntary movements] Resolved: 06-03-2013 08-19-2015 Episodic Results Test Name Value Interpretation Reference Range Facil ity Vital Signs Date Time Vital Sign Value Performing Clinician Facility 03-27-2019 13:24-0400 BMI (Body Mass Index) 29.47 kg/m2 Taty Brown [facility] Work Phone: 03-27-2019 13:24-0400 Body Temperature 97.8 [degF] Taty Brown [facility] Work Phone: Encounters Encounter Date Encounter Type Care Provider Facility Start: 04-24-2019 End: 04-24-2019 Phone Encounter Taty [facility] Start: 03-27-2019 End: 03-27-2019 Office outpatient visit 10 minutes Taty Morrowarnoldo [facility] Start: 06-05-2018 End: 06-05-2018 Phone Encounter Taty Brown [facility] Start: 05-04-2018 End: 05-04-2018 Phone Encounter Taty Brown [facility] Start: 01-15-2018 End: 01-15-2018 Annotation/Addendum Taty Brown [facility] Start: 01-12-2018 End: 01-12-2018 Annotation/Addendum Taty Brown [facility] Start: 01-02-2018 End: 01-02-2018 Office outpatient visit 5 minutes Taty [facility] Start: 09-21-2017 End: 09-21-2017 Annotation/Addendum Taty Brown [facility] Start: 09-20-2017 End: 09-20-2017 Office outpatient visit 15 minutes Taty [facility] Start: 08-25-2017 End: 08-25-2017 Office outpatient visit 15 minutes Taty [facility] Start: 06-19-2017 End: 06-19-2017 Office outpatient visit 15 minutes Taty Morrowarnoldo [facility] Start: 05-10-2017 End: 05-10-2017 Annotation/Addendum Taty Brown [facility] Start: 10-14-2016 End: 10-14-2016 Phone Encounter Taty Brown [facility] Start: 10-12-2016 End: 10-12-2016 Periodic preventive med est patient 40-64yrs Taty Morrowarnoldo [facility] Start: 08-26-2016 End: 08-26-2016 Phone Encounter Taty Brown [facility] Start: 04-13-2016 End: 04-13-2016 Annotation/Addendum Taty Brown [facility] Start: 01-25-2016 End: 01-25-2016 Annotation/Addendum Taty Brown [facility] Start: 12-31-2015 End: 12-31-2015 Phone Encounter Taty Brown [facility] Start: 11-30-2015 End: 11-30-2015 Lab Order Taty Morrowarnoldo [facility] Start: 11-30-2015 End: 11-30-2015 Lab Order Taty Morrowarnoldo [facility] Start: 11-27-2015 End: 11-27-2015 Lab Order Taty Brown [facility] Start: 10-09-2015 End: 10-09-2015 Annotation/Addendum Taty Brown [facility] Start: 09-07-2015 End: 09-07-2015 Lab Order Taty [facility] Start: 09-06-2015 End: 09-06-2015 Refill Request Taty Brown [facility] Start: 06-16-2015 End: 06-16-2015 Refill Request Taty Brown [facility] Start: 06-12-2015 End: 06-12-2015 Annotation/Addendum Taty Brown [facility] Start: 05-04-2015 End: 05-04-2015 Lab Order Taty Brown [facility] Start: 01-05-2015 End: 01-05-2015 Phone Encounter Taty Brown [facility] Start: 12-19-2014 End: 12-19-2014 Refill Request Taty Brown [facility] Start: 12-15-2014 End: 12-15-2014 Lab Order Taty Brown [facility] Start: 11-11-2014 End: 11-20-2014 Office outpatient visit 5 minutes Taty Brown [facility] Start: 11-11-2014 End: 11-11-2014 Phone Encounter Taty Brown [facility] Start: 08-19-2014 End: 08-19-2014 Refill Request Taty Brown [facility] Start: 07-03-2014 End: 07-03-2014 Prescription Refill Taty Brown [facility] Start: 06-17-2014 End: 06-17-2014 Lab Order Taty Brown [facility] Start: 06-16-2014 End: 06-16-2014 Phone Encounter Taty Brown [facility] Start: 06-06-2014 End: 06-06-2014 Historical Summary Taty Brown [facility] Start: 05-12-2014 End: 05-12-2014 Historical Summary Taty Brown [facility] Start: 04-30-2014 End: 04-30-2014 Historical Summary Taty Brown [facility] Start: 10-15-2013 End: 10-15-2013 Phone Encounter Taty Brown [facility] Start: 07-23-2013 End: 07-23-2013 Phone Encounter Taty [facility] Start: 07-17-2013 End: 07-17-2013 Phone Encounter Taty [facility] Start: 06-03-2013 End: 06-03-2013 Phone Encounter Taty [facility] Start: 04-10-2013 End: 04-10-2013 Patient encounter procedure Taty [facility] Start: 04-01-2013 End: 04-01-2013 Historical Summary Taty [facility] Start: 01-15-2013 End: 01-15-2013 Historical Summary Taty [facility] Start: 01-15-2013 End: 01-15-2013 Lab Order Taty [facility] Start: 11-28-2012 End: 11-28-2012 Lab Order Taty [facility] Start: 11-13-2012 End: 11-13-2012 Lab Order Taty [facility] Start: 10-18-2012 End: 10-18-2012 Phone Encounter Taty [facility] Start: 10-08-2012 End: 10-08-2012 Lab Order Taty [facility] Start: 08-08-2012 End: 08-08-2012 Patient encounter procedure Taty Brown [facility] Start: 07-16-2012 End: 07-16-2012 Phone Encounter Taty [facility] Start: 06-15-2012 End: 06-15-2012 Annotation/Addendum Taty [facility] Start: 05-30-2012 End: 05-30-2012 Lab Order Taty [facility] Start: 05-01-2012 End: 05-01-2012 Historical Summary Taty uSarez [facility] Start: 04-30-2012 End: 04-30-2012 Phone Encounter Taty [facility] Start: 11-22-2011 End: 11-22-2011 Phone Encounter Taty Brown [facility] Start: 11-21-2011 End: 11-21-2011 Lab Order Taty [facility] Start: 09-13-2011 End: 09-13-2011 Historical Summary Taty [facility] Start: 04-05-2011 End: 04-05-2011 Phone Encounter Taty [facility] Start: 01-11-2011 End: 01-11-2011 Phone Encounter Taty [facility] Start: 01-11-2011 End: 01-11-2011 Phone Encounter Taty [facility] Start: 10-11-2010 End: 10-11-2010 Phone Encounter Taty [facility] Start: 05-28-2010 End: 05-28-2010 Phone Encounter Taty [facility] Start: 04-14-2010 End: 04-14-2010 Historical Summary Taty [facility] Start: 01-27-2010 End: 01-27-2010 Patient encounter procedure Taty Brown [facility] Start: 10-20-2008 End: 10-20-2008 Historical Summary Taty [facility] Start: 06-18-2008 End: 06-18-2008 Phone Encounter Taty [facility] Start: 05-28-2008 End: 05-28-2008 Patient encounter procedure Taty Brown [facility] Start: 11-20-2007 End: 11-20-2007 Error Encounter Taty Brown [facility] Start: 11-13-2007 End: 11-13-2007 Phone Encounter Taty [facility] Start: 08-30-2007 End: 08-30-2007 Office outpatient visit 15 minutes Taty Brown [facility] Start: 08-15-2006 End: 08-20-2006 Office outpatient visit 5 minutes Taty Brown [facility] Procedures Date Procedure Procedure Detail Performing Clinician Start: 07-14-2018 End: 07-16-2018 SCREENING MAMM (CAD), BILAT Comments: See Note; NOTES: [facility] Imaging Services [address] [place] [id number] SCREENING MAMM (CAD), BILAT MR#: [id number] Acct: [id number] Name: YASMINE OROPEZA Rep #: [id number] : 1975 F 43 From: Sree Corona MD PCP: Taty Brown NP Status: REG CLI Study: SCREENING MAMM (CAD), BILAT Date of Exam: 07/14/18 Exam# [id number] Ordering Dr: Taty Brown TRAILER BODY ASSEMBLER-C MAMMOGRAPHY - BILATERAL SCREENING REASON FOR EXAM: Female, 43 years old. Routine annual screening examination. PERTINENT HISTORY: Mother with breast cancer. Aunt with breast cancer. TECHNIQUE: Digital bilateral breast john (3D mammographic acquisition) in the CC and MLO projections. 2-D mediolateral oblique (MLO) and craniocaudad (CC) views of both breasts were obtained. CAD: Full Field Digital Mammography with Computer Added Detection was performed. COMPARISON: Comparison is made with prior study dated January 14, 2015. FINDINGS: Breast Composition: The breasts are heterogeneously dense, which may obscure small masses. There are no dominant masses or suspicious calcifications. No other significant abnormalities are identified. There has been no significant change since the prior study. BI/SCREENING MAMM (CAD), BILAT IMPRESSION: Stable bilateral screening mammogram. Yearly follow-up mammogram recommended. (A) ASSESSMENT CATEGORY: BIRADS Category 1: Negative. A letter regarding these results will be sent to the patient by the facility within 30 days. Approximately 10% of breast cancers are not detected by mammography. A normal mammogram should not delay biopsy of a clinically suspicious abnormality. [id number] Electronically Signed: Sree Corona MD at 14:48 EDT Tel [phone], Service support , CC: Taty Brown NP Office Assistance: Signed Taty Brown Work Phone: Start: 08-08-2016 End: 08-08-2016 Emergency Department Summary Comments: See Note; NOTES: [facility] Medical Records Department [address] [place] [address] Emergency Department Summary MR#: [id number] Acct: [id number] Name: YASMINE OROPEZA Rep #: [id number] : 1975 41 From: Yadira Stark MD PCP: Taty Brown Status: DEP ER DATE OF SERVICE: 08/07/2016 CHIEF COMPLAINT: Abdominal pain. HISTORY: A 41-year-old female presents with gradual onset of left flank pain, it is in her groin, radiating around her flank to her back, for the past day or 2. It is continuous, she states. For the past 4 days, she has had some dysuria and frequency, without hematuria or fevers, she started taking some leftover Cipro on the day it started and has been taking it for about 3 days now. She does not recall having this pain before. She denies any fevers. She has had nausea, but no vomiting. PAST MEDICAL HISTORY: Lupus, rheumatoid arthritis, essential tremor, connective tissue disease. PAST SURGICAL HISTORY: Hysterectomy, bilateral ____. PHYSICAL EXAMINATION: VITAL SIGNS: She is afebrile. Vital signs are normal except for mild systolic hypertension of 160/93. GENERAL: She is uncomfortable, but in no distress. ABDOMEN: Soft, nontender, nondistended, even in the areas where she is having pain. She is nontender in the left lower quadrant. No CVA tenderness. LUNGS: Clear to auscultation. HEART: Regular. EMERGENCY DEPARTMENT COURSE: She has some nonspecific mild leukocytosis at 14.6, her urine shows blood, but no signs of infection, her renal function is normal and CT of flank shows mild hydronephrosis on the left secondary to a 3.4 mm left ureteral UVJ stone. 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 I discussed these findings with her and recommended she follow up with a estimator printing with regards to her dermoid, so that it may be followed. She was treated here with IV fluids, morphine, Toradol and felt a lot better. Pain is starting to come back a little, but I still think she can be discharged home. She will be given another dose of morphine, urinary strainers, prescription for Percocet and advised to watch for a passed stone, which she may take to her PCP for analysis. I also advised the patient to continue taking Cipro to equal a total of a 5-day course since I do not know if she had an infection before she started the medication or not. IMPRESSION: 1. Ureteral calculus. 2. Left ureteral colic secondary to ureteral calculus. 3. Incidental right dermoid tumor ovarian. DISPOSITION: Home. CONDITION: Stable. Yadira James C: Taty Isabellsamarnoldo T: NTS JOB: [id number] 08/08/1650 <Electronically signed by Yadira Stark MD> Date Yadira Stark MD Cosigner Signature (If Indicated): Date CC: Taty Brown Date Dictated: 08/07/162057 Date Transcribed: 08/07/162057 Office Assistance: Signed Taty Whytesamarnoldo Start: 08-07-2016 End: 08-07-2016 Discharge Instruction Comments: See Note; NOTES: [facility] Medical Records Department [address] [place] [id number] Discharge Instruction 08/07/162053 MR#: [id number] Acct: [id number] Name: YASMINE OROPEZA Rep #: [id number] : 1975 41 From: Yadira Stark MD PCP: Taty Brown Status: REG ER ED Disposition - Plan for ED Patient: Disposition: Home or Assisted Living Chief Complaint: Abd Pain Instructions: ED Stone Renal W Colic, ED Strainer Urine Prescriptions: Oxycodone HCl/Acetaminophen [Percocet 5/325] 1 - 2 tablet PO Q4H PRN PRN #12 tablet PRN Reason: Pain Referrals: Taty Brown [Primary Care Provider] - 1 Week if not improving Additional Instructions: continue cipro until completed for 5 days What to do if you have Problems For any increased pain, shortness of breath, bleeding, nausea or vomiting, chest pain, or any unexpected problems, contact your Primary Care Provider. Call [facility] ([phone]) or report to the closest Emergency Room. Call 911 if necessary. 08/07/162058 <Electronically signed by Yadira Stark MD> Date Yadira Stark MD Cosigner Signature (If Indicated): Date CC: Taty Brown Start: 08-07-2016 End: 08-07-2016 Abdomen/Pelvis without Cont Comments: See Note; NOTES: [facility] Imaging Services [address] [place] [address] Verdana 4d Abdomen/Pelvis without Cont MR#: [id number] Acct: [id number] Name: YASMINE OROPEZA Rep #: [id number] : 1975 F 41 From: Frank Alba MD PCP: Taty Brown Status: REG ER Study: Abdomen/Pelvis without Cont Date of Exam: 08/07/16 Exam# [id number] Ordering Dr: Yadira Stark MD STUDY: CT ABDOMEN AND PELVIS WITHOUT CONTRAST REASON FOR EXAM: Female, 41 years old. LLQ PAIN, URINARY FREQUENCY. HYSTERECTOMY, TUBAL LIGATION RADIATION DOSAGE (If Supplied By Facility): CTDIvol = ( 8.01 ) mGy, DLP = ( 360.22 ) mGycm TECHNIQUE: Transaxial images were obtained from the dome of the diaphragm to the symphysis pubis without oral contrast, and without intravenous contrast. Sagittal and coronal images were reconstructed. Individualized dose optimization techniques were used for this CT. COMPARISON: CT - Abdomen/Pelvis - 13:38 FINDINGS: The visualized lung bases are unremarkable. The visualized portions of the heart are within normal limits. Normal liver. Normal gallbladder and extrahepatic biliary system. Normal spleen. Normal pancreas. Normal bilateral adrenal glands. Normal right kidney. Mild hydronephrosis caused by left 3.4 mm UVJ stone. Series 2 image 136. Normal visualized stomach. Normal small intestine. Normal colon. The appendix is visualized and appears normal. Normal abdominal aorta. Normal inferior vena cava. Normal retroperitoneum. Normal urinary bladder. There is absence of the uterus consistent with a prior hysterectomy. Multicystic left ovary. Largest cyst is 23 mm. 38mm the right adnexa. This has fatty and soft tissue components suggesting a dermoid. There is a small umbilical hernia containing fat. Normal osseous structures. CT/Abdomen/Pelvis without Cont IMPRESSION: Mild hydronephrosis caused by left 3.4 mm UVJ stone. Multicystic left ovary. Right ovary dermoid. Electronically Signed: Frank Alba MD at 20:12 EST , Service support [phone], CC: Taty Brown; YADIRA STARK MD Office Assistance: Signed Taty Brown Start: 01-14-2015 End: 01-15-2015 Bilat Scrn Digital AND CAD Comments: See Note; NOTES: [facility] Imaging Services [address] [place] [address] Breast Imaging Report MR#: [id number] Acct: [id number] Name: YASMINE OROPEZA Rep #: [id number] : 1975 F 39 From: Sree Corona MD PCP: Eleanor Kaminski MD Status: REG CLI Study: Bilat Scrn Digital AND CAD Date of Exam: 01/14/15 Exam# [id number] Ordering Dr: Eleanor Kaminski MD MAMMOGRAPHY - BILATERAL SCREENING REASON FOR EXAM: Female, 39 years old. Routine annual screening examination. PERTINENT HISTORY: Mother with breast cancer. TECHNIQUE: Digital examination. Mediolateral oblique (MLO) and craniocaudad (CC) views of both breasts were obtained. CAD: CAD was performed on this study. COMPARISON: None. Baseline examination. FINDINGS: Breast Composition: The breasts are heterogeneously dense, which may obscure small masses. There are no dominant masses or suspicious calcifications. No other significant abnormalities are identified. There has been no significant change since the prior study. IMPRESSION: Stable bilateral screening mammogram. Yearly follow-up recommended. (A) ASSESSMENT CATEGORY: BIRADS Category 2: Benign. A letter regarding these results will be sent to the patient by the facility within 30 days. Approximately 10% of breast cancers are not detected by mammography. A normal mammogram should not delay biopsy of a clinically suspicious abnormality. Electronically Signed: Sree Corona MD at 8:03 EDT Tel [phone], Service support [phone], CC: Eleanor Kaminski MD Office Assistance: Signed Eleanor Kaminski Work Phone: Start: 06-25-2014 End: 06-26-2014 Chest WITH Contrast Comments: See Note; NOTES: [facility] Imaging Services [address] [place] [address] CAT Scan Report MR#: [id number] Acct: [id number] Name: YASMINE OROPEZA Rep #: [id number] : 1975 F 39 From: Wilbert Amna PCP: Eleanor Kaminski MD Status: REG CLI Study: Chest WITH Contrast Date of Exam: 06/25/14 Exam# [id number] Ordering Dr: Eleanor Kaminski MD STUDY: CT CHEST WITH CONTRAST REASON FOR EXAM: Female, 39 years old. Lung nodule RADIATION DOSAGE (If Supplied By Facility): CTDIvol = ( 9.84 ) mGy, DLP = ( 345.17 ) mGycm TECHNIQUE: High resolution transaxial imaging was performed following intravenous administration of 100CC ml of Isovue 300 contrast material. COMPARISON: 08/29/13 FINDINGS: There is a noncalcified smoothly marginated nodule at the RIGHT lung base seen on image 79 measuring 5 mm in diameter. This is unchanged from the prior study and most likely represents a stable granuloma or a lymph node. There is mild COPD. There are scattered fibrotic changes. There are NO active infiltrates. There is no demonstrated pleural abnormality. Normal heart and pericardium. There are borderline prominent mediastinal lymph nodes. Normal hilar regions. Normal enhanced pulmonary arteries. Normal aorta arch and descending thoracic aorta. Normal osseous structures. There is no demonstrated abnormality of the visualized upper abdomen. IMPRESSION: There is a noncalcified smoothly marginated nodule at the RIGHT lung base seen on image 79 measuring 5 mm in diameter. This is unchanged from the prior study and most likely represents a stable granuloma or a lymph node. There is mild COPD. There are scattered fibrotic changes. There are NO active infiltrates. There are borderline prominent mediastinal lymph nodes. Electronically Signed: Wilbert Woo MD at 7:16 EDT , Service support [phone], CC: Eleanor Kaminski MD Office Assistance: Signed Eleanor Kaminski Work Phone: Start: 08-29-2013 End: 08-29-2013 Chest with Contrast Comments: See Note; NOTES: [facility] Imaging Services [address] [place] [id number] CAT Scan Report MR#: [id number] Acct: [id number] Name: YASMINE CALDERA Rep #: [id number] : 1975 F 38 From: Yadira Dyer MD PCP: Taty Brown Status: REG CLI Study: Chest with Contrast Date of Exam: 08/29/13 Exam# [id number] Ordering Dr: Eleanor Kaminski MD STUDY: CT CHEST WITH CONTRAST REASON FOR EXAM: Female, 38 years old. Lung nodule. RADIATION DOSAGE (If Supplied By Facility): CTDIvol = ( 11.13 ) mGy, DLP = ( 442.35 ) mGycm TECHNIQUE: High resolution transaxial imaging was performed following intravenous administration of 100 ml of Isovue 300 contrast material. COMPARISON: November 06, 2012 FINDINGS: There are emphysematous changes of the lungs with emphysematous blebs in the upper chest. Right lower lobe nodule on axial image 78/117 is stable measuring 5 mm.. There is no demonstrated pleural abnormality. Normal heart and pericardium. Normal mediastinum. Normal hilar regions. Normal enhanced pulmonary arteries. Normal aorta arch and descending thoracic aorta. Normal osseous structures. There is no demonstrated abnormality of the visualized upper abdomen. IMPRESSION: Stable right lower lung nodule. Stable emphysema and fibrosis. Electronically Signed: Yadira Dyer M.D. at 19:41 EST , Service support [phone], CC: Taty Brown; Eleanor Kaminski MD Office Assistance: Signed Eleanor Kaminski Work Phone: Plan of Treatment Date Care Activity Detail Author Start: 03-27-2019 Procedure Education Eprescribed prescriptions (G8553) [facility] Work Phone: Start: 03-27-2019 Provider Instructions for Treatment Follow up if no improvement or if symptoms worsen [facility] Work Phone: Start: 03-27-2019 Iadna nos amplified probe tq each organism Bordetella Pertussis PCR (71715) [facility] Work Phone: Start: 01-02-2018 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) [facility] Work Phone: Immunizations Immunization Date Immunization Notes Care Provider Fa tracie 08-30-2007 tetanus and diphther ia toxoids, adsorbed, preservative free, for adult use (2 Lf of tetanus toxoid and 2 Lf of diphtheria toxoid) Taty Brown [facility] Work Phone: Payers Date Payer Category Payer Policy ID Unknown [facility] Family History Unknown Family Member Name Dates Details Brother 1 Comments:DM Type 1 Status:Active Daughter 1 Comments:scleraderma Status:Active Father Comments:HTN, CAD Status:Active First Degree Relatives Comments:pos family hx of Br Ca- mother, M aunt X 2, MGmother , PGmother, P Aunt X1 Status:Active Mother Comments:CAD,HTN, Br Ca, Lup us Status:Active Unknown Family Member Name Dates Details Brother 1 Comments:DM Type 1 Status:Active Daughter 1 Comments:scleraderma Status:Active Father Comments:HTN, CAD Status:Active First Degree Relatives Comments:pos family hx of Br Ca- mother, M aunt X 2, MGmother , PGmother, P Aunt X1 Status:Active Mother Comments:CAD,HTN, Br Ca, Lup us Status:Active Instructions Name Dates Details How to access health informa tion online Indication:Smoker Start:27-Mar-2019 Instruction Type:Patient Education How to access health informa tion online - Detail Indication:Smoker Start:27-Mar-2019 Instruction Type:Patient Education Patient Instructions Indication:Smoker Start:27-Mar-2019 Instruction Type:Provider Instructions for Treatment How to access health informa tion online Indication:Weight gain Start:20-Sep-2017 Instruction Type:Patient Education How to access health informa tion online - Detail Indication:Weight gain Start:20-Sep-2017 Instruction Type:Patient Education Patient Instructions Indication:Weight gain Start:20-Sep-2017 Instruction Type:Provider Instructions for Treatment How to access health informa tion online Indication:BMI 30.0-30.9,adult Start:25-Aug-2017 Instruction Type:Patient Education How to access health informa tion online - Detail Indication:BMI 30.0-30.9,adult Start:25-Aug-2017 Instruction Type:Patient Education Patient Instructions Indication:BMI 30.0-30.9,adult Start:25-Aug-2017 Instruction Type:Provider Instructions for Treatment How to access health informa tion online Indication:UTI symptoms Start:19-Jun-2017 Instruction Type:Patient Education How to access health informa tion online - Detail Indication:UTI symptoms Start:19-Jun-2017 Instruction Type:Patient Education Patient Instructions Indication:UTI symptoms Start:19-Jun-2017 Instruction Type:Provider Instructions for Treatment Patient Instructions Start:20-Nov-2014 Instruction Type:Provider Instructions for Treatment Name Dates Details How to access health informa tion online Indication:Smoker Start:27-Mar-2019 Instruction Type:Patient Education How to access health informa tion online - Detail Indication:Smoker Start:27-Mar-2019 Instruction Type:Patient Education Patient Instructions Indication:Smoker Start:27-Mar-2019 Instruction Type:Provider Instructions for Treatment How to access health informa tion online Indication:Weight gain Start:20-Sep-2017 Instruction Type:Patient Education How to access health informa tion online - Detail Indication:Weight gain Start:20-Sep-2017 Instruction Type:Patient Education Patient Instructions Indication:Weight gain Start:20-Sep-2017 Instruction Type:Provider Instructions for Treatment How to access health informa tion online Indication:BMI 30.0-30.9,adult Start:25-Aug-2017 Instruction Type:Patient Education How to access health informa tion online - Detail Indication:BMI 30.0-30.9,adult Start:25-Aug-2017 Instruction Type:Patient Education Patient Instructions Indication:BMI 30.0-30.9,adult Start:25-Aug-2017 Instruction Type:Provider Instructions for Treatment How to access health informa tion online Indication:UTI symptoms Start:19-Jun-2017 Instruction Type:Patient Education How to access health informa tion online - Detail Indication:UTI symptoms Start:19-Jun-2017 Instruction Type:Patient Education Patient Instructions Indication:UTI symptoms Start:19-Jun-2017 Instruction Type:Provider Instructions for Treatment Patient Instructions Start:20-Nov-2014 Instruction Type:Provider Instructions for Treatment Additional Source Comments FOR RECORDS PERTAINING TO PATIENTS WHO ARE OR HAVE BEEN ENROLLED IN A CHEMICAL DEPENDENCY/SUBSTANCEABUSE PROGRAM, SOME INFORMATION MAY BE OMITTED. This clinical summary was aggregated from multiple sources. Caution should be exercised in using it in the provision of clinical care. This summary normalizes information from multiple sources, and as a consequence, information in this document may materially change the coding, format and clinical context of patient data. In addition, data may be omitted in some cases. CLINICAL DECISIONS SHOULD BE BASED ON THE PRIMARY CLINICAL RECORDS. [email or web address] provides no warranty or guarantee of the accuracy or completeness of information in this document.
[2023-12-09 08:13] LABS: Absolute Lymphocyte Count 3.28 X10^3/uL (0.83-4.51); Absolute Neutrophil Count 5.8 X10^3/uL (2.0-7.7); Basophil# 0.07 X10^3/uL; Basophil% 0.7 % (0-1); Hematocrit 47.2 % (37-47); Lymphocyte # 3.28 X10^3/ul (0.83-4.51); Lymphocyte % 32.3 % (19-41); Mean Corp Hgb Conc 31.8 g/dL (32-36); Mean Corpuscular Hgb 29.2 pg (27.0-32.0); Mean Corpuscular Volume 91.8 fL (81-99); Mean Platelet Vol. 11.1 fl (6.2-12.0); Monocyte# 0.62 X10^3/uL; Monocyte% 6.1 % (0-10); NRBC Flagged by Analyzer 0 % (0-5); Neutrophil # 5.84 X10^3/uL (2.7-7.7); Neutrophil % 57.5 % (47-70); Platelet Count 287 K/mm3 (150-450); RBC Distribution Width CV 13.2 % (11.6-14.6); RBC Distribution Width SD 45.1 fl (35.1-43.9); Red Blood Count 5.14 M/mm3 (4.2-5.4); White Blood Count 10.2 K/mm3 (4.4-11.0)
[2023-12-09 08:53] LABS: ALB/GLOB Ratio 0.9 RATIO (0.9-2.4); AST(SGOT) 14 U/L (15-37); Alanine Aminotransfer ALT/SGPT 28 U/L (13-56); Albumin, Serum 3.6 g/dL (3.2-5.0); Alkaline Phosphatase 140 U/L (45-117); Anion Gap 2 (5-15); BUN 17 mg/dL (7-18); BUN/Creat Ratio 23.4 RATIO (10-20); Calcium,Total 9.1 mg/dL (8.5-10.1); Chloride 114 mmol/L (98-107); Cholesterol 195 mg/dL (200); Creatinine, Serum 0.73 mg/dL (0.55-1.02); EST Glomerular Filtration Rate 90 mL/min (>60); Est Glom Filt Rate - Afr Amer 109 mL/min (>60); Globulin 3.8 g/dL (2.2-4.2); Glucose 189 mg/dL (74-106); High Density Lipoprotein 36 mg/dL; Potassium 4.7 mmol/L (3.5-5.1); Protein, Total 7.4 g/dL (6.4-8.2); Sodium Level 141 mmol/L (136-145); Triglycerides 147 mg/dL; Very Low Density Lipoprotein 29 mg/dL (5-40)
[2023-12-11 08:39] LABS: Vitamin D,25 Hydroxy 19.1 ng/mL
== END | disposition home or self-care (01) ==
LOC: LAB 07:46
PROVIDERS: PCP Internal Medicine; Referring Provider Internal Medicine; Visit Provider Internal Medicine
DX: I10 Essential (primary) hypertension (principal); E11.9 Type 2 diabetes mellitus without complications; E55.9 Vitamin D deficiency, unspecified
CPT/HCPCS: 36415; 80053; 80061; 82306; 84443; 85025

== ENCOUNTER → 2024-02-07 | Outpatient (CLI) | payer OTHER, SELFPAY ==
[2024-02-07 16:06] LABS: Microalbumin,Random Urine 11.3 mg/L (NO RANGE EST.); Microalbumin:Creatinine Ratio 10.9 mg/g CRE (<30 mg/g CRE)
== END | disposition home or self-care (01) ==
LOC: LABSPEC 13:35
PROVIDERS: PCP Internal Medicine; Visit Provider Internal Medicine
DX: E11.9 Type 2 diabetes mellitus without complications (principal)
CPT/HCPCS: 82043; 82570

== ENCOUNTER → 2024-08-13 | Outpatient (CLI) | payer OTHER, SELFPAY | END | disposition home or self-care (01) | LOC: BIMLAB 13:23 | PROVIDERS: PCP Internal Medicine; Visit Provider Internal Medicine | DX: N39.0 Urinary tract infection, site not specified (principal) | CPT/HCPCS: 87086; 87088; 87186 ==

== ENCOUNTER → 2024-09-11 | Outpatient (CLI) | payer OTHER, SELFPAY ==
--- NOTE | 2024-09-11 10:11 | BI_ITS ---
MAMMOGRAPHY - BILATERAL SCREENING REASON FOR EXAM: Female, 49 years old. Routine annual screening examination. PERTINENT HISTORY: Mother with breast cancer. Aunt with breast cancer. TECHNIQUE: Digital bilateral breast becca (3D mammographic acquisition) in the CC and MLO projections. 2-D mediolateral oblique (MLO) and craniocaudad (CC) views of both breasts were obtained. CAD: Full Field Digital Mammography with Computer Added Detection was performed. COMPARISON: Comparison is made with prior study dated April 11, 2022 and July 14, 2018. FINDINGS: Breast Composition: The breasts are heterogeneously dense, which may obscure small masses. There are no dominant masses or suspicious calcifications. Stable small axillary lymph nodes. No other significant abnormalities are identified. There has been no significant change since the prior study. BI/SCRN MAMM (CAD)W/BECCA BILAT IMPRESSION: Stable bilateral screening mammogram. Yearly follow-up mammogram recommended. (A) ASSESSMENT CATEGORY: BIRADS Category 2: Benign. A letter regarding these results will be sent to the patient by the facility within 30 days. Approximately 10% of breast cancers are not detected by mammography. A normal mammogram should not delay biopsy of a clinically suspicious abnormality. [id number] Electronically Signed: Sree Corona MD at 11:11 EST ,
== END | disposition home or self-care (01) ==
LOC: OPBI 10:11
PROVIDERS: PCP Internal Medicine; Referring Provider Internal Medicine; Visit Provider Internal Medicine
DX: Z12.31 Encounter for screening mammogram for malignant neoplasm of breast (principal)
CPT/HCPCS: 77063; 77067

== ENCOUNTER → 2024-12-24 | Outpatient (CLI) | payer OTHER, SELFPAY ==
--- NOTE | 2024-12-24 14:41 | RAD_ITS ---
PROCEDURE: THORACIC SPINE 3 VIEWS 12/24/2024 REASON FOR EXAM: PAIN TECHNIQUE: Two views of the thoracic spine, AP and 2 lateral, 3 total images COMPARISON: None available FINDINGS: 12 rib-bearing thoracic vertebral body types identified. T1 and T2 are not well seen on the lateral views, appear within limits on the AP view. No evidence of fracture or malalignment identified. The disc spaces appear within limits as visualized. No osseous lesion identified. RAD/Thoracic Spine 3 Views IMPRESSION: T1 and T2 are not well seen on the lateral views, appear within limits on the A P view. No evidence of fracture or malalignment identified. The disc spaces appear within limits as visualized. No osseous lesi on identified. Reading Location: [id number]
== END | disposition home or self-care (01) ==
LOC: MTRAD 14:40
PROVIDERS: PCP Internal Medicine; Referring Provider Physician Assistant; Visit Provider Physician Assistant
DX: M54.9 Dorsalgia, unspecified (principal)
CPT/HCPCS: 72072

== ENCOUNTER → 2025-08-09 | Outpatient (CLI) | payer OTHER, SELFPAY ==
--- OUTSIDE RECORDS SUMMARY | 2025-08-09 08:32 | XMS RPT_ITS | CCD ---
Author Organization [facility] Care Team Providers Care Healthcare Administrator Name Role Phone Taty Brown Unavailable Kadie Kaur Unavailable Unavailable Rachel Andersen Unavailable Unavailable Unavailable Unavailable Dr. Naveen Cueto Primary Care Provider Dr. Naveen Cueto Referring Provider Dr. Noreen Paul Attending Provider [phone] Dr. Noreen Paul Referring Provider Dr. Noreen Paul Other Provider Dr. Brown Lorenzana Attending Provider [phone] Noreen Paul Referring Provider Dr. Naveen Cueto Primary Care Provider [phone] Dr. Naveen Cueto Referring Provider Dr. Mariza You Attending Provider [phone] Dr. Mariza You MD Primary Care Provider [phone] Dr. Mariza You MD Attending Provider Dr. Mariza You MD Referring Provider Geo Padilla Attending Provider [phone] Geo Padilla Referring Provider [phone] Mariza You MD Primary Care Provider [phone] Dr. Mariza You MD Referring Provider Giancarlo DEL VALLECJane Attending Provider [phone] [place], Mariza Referring Unavailable [place], Mariza Primary Care Unavailable [place], Mariza Attending Unavailable Geo Padilla Attending Unavailable Geo Padilla Referring Unavailable [place], Mariza Primary Care Unavailable Avelino, Mariza Referring Unavailable Geo Padilla Attending Unavailable [place], Mariza Primary Care Unavailable [place], Mariza Referring Unavailable Jane Mondragon Attending Unavailable Avelino, Mariza Primary Care Unavailable Geo Padilla Attending Unavailable Avelino, Mariza Primary Care Unavailable [place], Mariza Referring Unavailable Avelino, Mariza Referring Unavailable [place], Mariza Primary Care Unavailable Avelino, Mariza Attending Unavailable Avelino, Mariza Referring Unavailable [place], Mariza Primary Care Unavailable Avelino, Mariza Attending Unavailable [place], Mariza Primary Care Unavailable [place], Mariza Attending Unavailable Allergies Allergy Classification Reported Allergen(s) Allergy Type Date of Onset Reaction(s) Facility (3 sources) Doxycycline Drug Allergy [facility] Work Phone: (3 sources) Latex Allergy to substance 4 [facility] (1 source) Latex Drug allergy (disorder) 5 [facility] Repository Medications Current Medications Medication Drug Class(es) Dates Sig (Normalized) Sig (Original) hydroCHLOROthiazide 12.5 mg / lisinopril 10 mg oral tablet (9 sources) Thiazide Diuretic, Angiotensin Converting Enzyme Inhibitor Start: 08-05-2019 End: 02-11-2025 Lisinopril-Hydr ochlorothiazide 10-12.5 mg tablet Active 1 {tbl} PO DAILY 90 0 February 11, 2025 8:28am Start: 08-05-2019 take 1 tablet by bruce th once daily Lisinopril-Hydrochlorothiazide Active 1 TABLET PO DAILY August 05, 2019 1:00am meclizine hydrochloride 12.5 mg oral tablet (2 sources) Antiemetic Start: 08-15-2024 take 1 tablet by mouth three times daily as needed for dizziness Meclizine 12.5 mg tablet Active 12.5 mg PO THREE TIMES A DAY as needed for dizziness 20 0 August 15, 2024 1:00am metaxalone 400 mg oral tablet (2 sources) Start: 12-20-2024 take 1 tablet by mouth three to four times daily as needed for pain Metaxalone 400 mg tablet Active 800 mg PO 3 to 4 times per day as needed for muscle pain December 20, 2024 12:00am Semaglutide (10 sources) Start: 03-31-2025 Semaglutide 0. 25 mg or 0.5 mg (2 mg/3 mL) pen injector Active 0.5 mg SC EVERY WEEK 3 March 31, 2025 10:53am for 4 weeks Start: 01-27-2025 End: 03-31-2025 Semaglutide 0.25 mg or 0.5 m g (2 mg/3 mL) pen injector Discontinued 0.5 mg SC EVERY WEEK 3 January 27, 2025 4:06pm March 31, 2025 10:53am for 4 weeks Start: 11-26-2024 End: 01-27-2025 Semaglutide 0.25 mg or 0.5 m g (2 mg/3 mL) pen injector Discontinued 0.25 mg SC EVERY WEEK 3 November 26, 2024 5:15pm January 27, 2025 4:06pm for 4 weeks Start: 11-26-2024 Semaglutide 0. 25 mg or 0.5 mg (2 mg/3 mL) pen injector Active 0.25 mg SC EVERY WEEK November 26, 2024 5:15pm for 4 weeks Start: 08-15-2024 End: 11-26-2024 Semaglutide 0.25 mg or 0.5 m g (2 mg/3 mL) pen injector Discontinued 0.25 mg SC EVERY WEEK 3 August 15, 2024 12:19pm November 26, 2024 5:15pm for 4 weeks Start: 08-15-2024 End: 11-26-2024 Semaglutide 0.25 mg or 0.5 m g (2 mg/3 mL) pen injector Discontinued 0.25 mg SC EVERY WEEK August 15, 2024 12:19pm November 26, 2024 5:15pm for 4 weeks Start: 04-22-2024 End: 08-15-2024 Semaglutide 0.25 mg or 0.5 m g (2 mg/3 mL) pen injector Discontinued 0.25 mg SC EVERY WEEK 3 0 April 22, 2024 3:34pm August 15, 2024 12:19pm for 4 weeks Start: 04-22-2024 End: 08-15-2024 Semaglutide 0.25 mg or 0.5 m g (2 mg/3 mL) pen injector Discontinued 0.25 mg SC EVERY WEEK 3 April 22, 2024 3:34pm August 15, 2024 12:19pm for 4 weeks Start: 02-07-2024 End: 02-07-2024 Semaglutide 0.25 mg or 0.5 m g (2 mg/3 mL) pen injector Discontinued 0.25 mg SC EVERY WEEK February 07, 2024 12:00am February 07, 2024 1:24pm for 4 weeks Completed/Discontinued Medications Medication Drug Class(es) Dates Sig (Normalized) Sig (Original) acetaminophen 325 mg / HYDROcodone bitartrate 5 mg oral tablet (5 sources) Opioid Agonist Start: 01-17-2022 End: 11-07-2023 Hydrocodone-Acetamino phen 5-325 mg tablet Discontinued 1 {tbl} PO Q4H as needed for pain 14 3 0 January 17, 2022 November 07, 2023 11:37am Postoperative pain Other acute postprocedural pain Start: 01-17-2022 End: 11-07-2023 take 1 tablet by mouth every four hours Hydrocodone-Acetaminophen Discontinued 1 TABLET PO Q4H 14 3 January 17, 2022 November 07, 2023 11:37am acetaminophen 325 mg / oxyCODONE hydrochloride 5 mg oral tablet (6 sources) Opioid Agonist Start: 08-07-2016 End: 08-05-2019 Oxycodone-Acetaminophen 1 TABLET tablet Discontinued 1 - 2 {tbl} PO EVERY 4 HOURS NEEDED as needed for Pain August 07, 2016 1:00am August 05, 2019 11:38am Start: 08-07-2016 End: 08-05-2019 take 1 tablet by mouth every four hours as needed Oxycodone-Acetaminophen Discontinued 1 - 2 TABLET PO EVERY 4 HOURS NEEDED August 07, 2016 1:00am August 05, 2019 11:38am 200 actuat albuterol 0.09 mg/actuat metered dose [...] Quantity: 28 {Tablet} Refills: 0 Ordered: 10-May-2017 Isabellsamarnoldo VELASCO Taty Garcia IsabellTaty gonzalez CNP Start : 10-May-2017 End : 24-May-2017 Inactive azithromycin 250 mg oral tablet (3 sources) Macrolide Antimicrobial Start: 08-26-2016 End: 10-12-2016 take 1 tablet by mouth once daily Zithromax Z-Arturo 250 MG Oral Tablet uad Tablet one qd until gone for 0 days Quantity: 1 {Package} Refills: 0 Ordered: 12-Oct-2016 Rachel Andersen LPN Start : 26-Aug-2016 End : 12-Oct-2016 Discontinued betamethasone 0.5 mg/ml / clotrimazole 10 mg/ml topical cream (3 sources) Azole Antifungal, Corticosteroid Start: 08-19-2014 End: 05-19-2015 CLOTRIMAZOLE-BETAM ETHASONE, 1-0.05% (External Cream) uad Cream to affected [...] Quantity: 60 {Tablet} Refills: 2 Ordered: 19-Jun-2017 Nathaly TREVINORachel Arrieta Start : 13-Apr-2016 End : 19-Jun-2017 Discontinued Comments: Start 150mg qd x3 days, then twice daily. Separate doses by at least 8h, last dose no later than 6pm, stop smoking after5-7 days of treatment (treatment 7-12 weeks) Comment on above: Start 150mg qd x3 da ys, then twice daily. Separate doses by at least 8h, last dose no later than 6pm, stop smoking after5-7 days of treatment (treatment 7-12 weeks) cephalexin 500 mg oral capsule (3 sources) Cephalosporin Antibacterial Start: 07-03-2014 End: 08-19-2014 take 1 capsule by mouth twice daily CEPHALEXIN, 500MG (Oral Capsule) 1 (one) Capsule bid for 0 days Quantity: 28 {Capsule} Refills: 0 Ordered: 19-Aug-2014 MONICA Chacon Start : 03-Jul-2014 End : 19-Aug-2014 Inactive ciprofloxacin 500 mg oral tablet (12 sources) Quinolone Antimicrobial Start: 01-25-2016 End: 08-05-2019 take 1 tablet by mouth twice daily Ciprofloxacin Hcl 500 MG tablet Discontinued 500 mg PO TWICE A DAY August 07, 2016 1:00am August 05, 2019 11:38am Start: 11-11-2014 End: 11-25-2014 take 1 tablet by mouth twice daily CIPROFLOXACIN HCL, 500MG (Oral Tablet) 1 (one) Tablet bid for 14 days Quantity: 28 {Tablet} Refills: 0 Ordered: 11-Nov-2014 Eleanor Kaminski MD Start : 11-Nov-2014 End : 25-Nov-2014 Inactive citalopram 10 mg oral tablet (3 sources) Serotonin Reuptake Inhibitor Start: 03-31-2014 End: 05-19-2015 take 1 tablet by mouth once daily CITALOPRAM HYDROBROMIDE, 10MG (Oral Tablet) 1 Tablet qd for 0 days Quantity: 90 {Tablet} Refills: 3 Ordered: 19-May-2015 MONICA Chacon Start : 31-Mar-2014 End : 19-May-2015 Inactive doxycycline monohydrate 100 mg oral capsule (3 sources) Tetracycline-cla ss Drug Start: 03-27-2019 End: 04-03-2019 take 1 capsule by mouth twice daily Doxycycline Monohydrate 100 MG Oral Capsule 1 (one) Capsule bid for 7 days Quantity: 14 {Capsule} Refills: 0 Ordered: 27-Mar-2019 Stephanie VELASCO, Taty Brown CNP, Taty Garcia Start : 27-Mar-2019 End : 03-Apr-2019 Inactive ergocalciferol 89029 unt oral capsule (6 sources) Provitamin D2 Compound Start: 09-21-2017 End: 03-27-2019 Ergocalciferol 71303 UNIT Oral Capsule 1 (one) Unit twice weekly x 3 months for 0 days Quantity: 24 {Capsule} Refills: 0 Ordered: 27-Mar-2019 Kadie Kaur LPN Start : 21-Sep-2017 End : 27-Mar-2019 Inactive Start: 01-27-2010 End: 06-23-2010 take 1 capsule by mouth two times weekly VITAMIN D, [id number] (Oral Capsule) 1 (one) Capsule twice weekly for 0 days Quantity: 24 {Capsule} Refills: 0 Ordered: 23-Jun-2010 Rola Oropeza LPN Start : 27-Jan-2010 End : 23-Jun-2010 Discontinued Comments: This order discontinued per [employer]. Comment on above: This order discontin ued per [employer]. 0.98 ml etanercept 50 mg/ml auto-injector (3 sources) Tumor Necrosis Factor Luis Alberto Start: 2014 End: 2014 ENBREL SURECLICK, 50MG/ML (Subcutaneous Solution Auto-injector) 1 Solution once a week for 365 days Refills: 0 Ordered: 02-Jul-2015 Rola Oropeza LPN Start : 02-Jul-2015 End : 02-Jul-2015 Inactive etodolac 500 mg oral tablet (3 sources) Nonsteroidal Anti-inflammatory Drug Start: 2011 End: 2014 take 1 tablet by mouth twice daily ETODOLAC, 500MG (Oral Tablet) 1 Tablet two times daily for 2160 days Quantity: 180 {Tablet} Refills: 3 Ordered: 19-May-2015 MONICA Chacon Start : 01-May-2012 End : 19-May-2015 Inactive 0.85 ml exenatide 2.35 mg/ml auto-injector (9 sources) GLP-1 Receptor Agonist Start: 2023 End: 2023 Exenatide Microspheres (Korina Akins) 2 mg/0.85 mL auto-injector Discontinued 2 mg SC EVERY WEEK 11.05 90 1 November 30, 2023 11:40am February 07, 2024 1:03pm fluconazole 150 mg oral tablet (3 sources) Azole Antifungal Start: 2014 End: 2015 Diflucan 150 MG Oral Tablet uad Tablet one today and may repeat in 2 days if not gone for 0 days Quantity: 2 {Tablet} Refills: 0 Ordered: 26-Aug-2016 MONICA Chacon Start : 09-Sep-2015 End : 26-Aug-2016 Inactive hydroxychloroquine sulfate 200 mg oral tablet (3 sources) Antimalarial, Antirheumatic Agent Start: 2011 End: 2014 PLAQUENIL, 200MG (Oral Tablet) 1 1/2 (one and a half) Tablet daily for 0 days Quantity: 135 {Tablet} Refills: 3 Ordered: 19-May-2015 MONICA Chacon Start : 26-Jul-2012 End : 19-May-2015 Inactive LORazepam 0.5 mg oral tablet (3 sources) Benzodiazepine Start: 2008 End: 2011 ATIVAN, 0.5MG (Oral Tablet) 1 Tablet PRN for 0 days Refills: 0 Ordered: 08-Aug-2012 Rola Oropeza LPN Start : 20-Oct-2008 End : 08-Aug-2012 Inactive methocarbamol 500 mg oral tablet (3 sources) Muscle Relaxant Start: 2011 End: 2014 take 1 tablet by mouth every six hours ROBAXIN, 500MG (Oral Tablet) 1 Tablet every six hours, as needed for 0 days Quantity: 30 {Tablet} Refills: 2 Ordered: 19-May-2015 MONICA Chacon Start : 01-May-2012 End : 19-May-2015 Inactive Comments: Medication taken as needed. Comment on above: Medication taken as needed. methotrexate 2.5 mg oral tablet (3 sources) Folate Analog Metabolic Inhibitor Start: 2011 End: 2014 take 1 tablet by mouth once daily METHOTREXATE, 2.5MG (Oral Tablet) 1 Tablet daily for 2340 days Quantity: 360 {Tablet} Refills: 3 Ordered: 19-May-2015 MONICA Chacon Start : 08-Aug-2012 End : 19-May-2015 Inactive Comments: 15mg weekly Comment on above: 15mg weekly metroNIDAZOLE 500 mg oral tablet (3 sources) Nitroimidazole Antimicrobial Start: 2010 End: 2010 take 1 tablet by mouth twice daily METRONIDAZOLE, 500MG (Oral Tablet) 1 Tablet bid for 14 days Quantity: 28 {Tablet} Refills: 0 Ordered: 03-May-2011 Start : 03-May-2011 End : 17-May-2011 Inactive nitrofurantoin, macrocrystals 25 mg / nitrofurantoin, monohydrate 75 mg oral capsule (5 sources) Nitrofuran Antibacterial Start: 2023 End: 2023 take 1 capsule by mouth every twelve hours at mealtime Nitrofurantoin Monohyd/M-Cryst (Macrobid) 100 mg capsule Discontinued 100 mg PO Q12H 10 5 0 August 13, 2024 1:00am August 17, 2024 1:00am August 18, 2024 1:08am must administer with a meal/food Start: 07-31-2017 End: 08-07-2017 take 1 capsule by mouth twice daily Macrobid 100 MG Oral Capsule 1 (one) Capsule bid for 7 days Quantity: 14 {Capsule} Refills: 0 Ordered: 31-Jul-2017 Eleanor Kaminski MD Start : 31-Jul-2017 End : 07-Aug-2017 Inactive 24 hr PARoxetine hydrochloride 12.5 mg extended release oral tablet (3 sources) Serotonin Reuptake Inhibitor End: 08-30-2007 take 1 tablet by mouth once daily PAXIL CR, 12.5MG (Oral Tablet Extended Release 24 Hour) 1 QD for 0 days Refills: 0 Ordered: 30-Aug-2007 Rola Oropeza LPN End : 30-Aug-2007 Inactive phenazopyridine hydrochloride 200 mg oral tablet (3 sources) Start: 05-04-2018 End: 03-27-2019 take 1 tablet by mouth three times daily as needed Pyridium 200 MG Oral Tablet 1 (one) Tablet tid prn for 0 days Quantity: 20 {Tablet} Refills: 0 Ordered: 27-Mar-2019 Kadie Kaur LPN Start : 04-May-2018 End : 27-Mar-2019 Inactive phentermine hydrochloride 37.5 mg oral capsule (6 sources) Sympathomimetic Amine Anorectic Start: 09-20-2017 End: 05-04-2018 take 1 capsule by mouth once daily in the morning Phentermine HCl 37.5 MG Oral Capsule 1 (one) Capsule qam for 0 days Quantity: 30 {Capsule} Refills: 0 Ordered: 04-May-2018 MONICA Chacon Start : 20-Sep-2017 End : 04-May-2018 Inactive Comments: thirty BMI 30wt 169.9 Start: 11-20-2014 End: 05-19-2015 take 1 tablet by mouth once daily ADIPEX-P, 37.5MG (Oral Tablet) 1 (one) Tablet qd for 0 days Quantity: 30 {Tablet} Refills: 0 Ordered: 19-May-2015 MONICA Chacon Start : 20-Nov-2014 End : 19-May-2015 Inactive Comments: thirty wt 163 BMI 28dx diabetes Comment on above: thirty wt 163 BMI 28 dx diabetes thirty BMI 30wt 169. 9 predniSONE 10 mg oral tablet (3 sources) Start: 9 predniSONE 10 MG Oral Tablet 1 (one) Tablet 3 daily x 3 days 2 dailyx 3 days 1 daily x 3 days for 0 days Quantity: 18 {Tablet} Refills: 0 Ordered: 27-Mar-2019 Taty Brown CNP, CNP, Taty Garcia Start : 27-Mar-2019 Active Comments: with food Comment on above: with food primidone 50 mg oral tablet (3 sources) Anti-epileptic Agent Start: 4 End: 5 PRIMIDONE, 50MG (Oral Tablet) uad Tablet 25mg for one week then titrate up as directed for 0 days Quantity: 270 {Tablet} Refills: 3 Ordered: 19-May-2015 MONICA Chacon Start : 12-May-2014 End : 19-May-2015 Inactive Comments: can titrate up to 250mg qd Comment on above: can titrate up to 25 0mg qd propranolol hydrochloride 40 mg oral tablet (3 sources) beta-Adrenergic Luis Alberto Start: 4 End: 5 take 1 tablet by mouth twice daily PROPRANOLOL HCL, 40MG (Oral Tablet) 1 Tablet two times daily for 0 days Quantity: 180 {Tablet} Refills: 3 Ordered: 19-May-2015 MONICA Chacon Start : 31-Mar-2014 End : 19-May-2015 Inactive Semaglutide 0.25 mg or 0.5 mg (2 mg/3 mL) pen injector (2 sources) Start: End: Semaglutide 0.25 mg or 0.5 mg (2 mg/3 mL) pen injector Discontinued 0.25 mg SC EVERY WEEK 3 February 07, 2024 1:pm April 22, 2024 3:34pm for 4 weeks Start: 02-07-2024 End: 04-22-2024 Semaglutide 0.25 mg or 0.5 m g (2 mg/3 mL) pen injector Discontinued 0.25 mg SC EVERY WEEK February 07, 2024 1:22pm April 22, 2024 3:34pm for 4 weeks sertraline 50 mg oral tablet (3 sources) Serotonin Reuptake Inhibitor Start: 06-16-2015 End: 10-23-2015 take 1 tablet by mouth once daily SERTRALINE HCL, 50MG (Oral Tablet) 1 (one) Tablet qd for 0 days Quantity: 30 {Tablet} Refills: 6 Ordered: 23-Oct-2015 Rola Oropeza LPN Start : 16-Jun-2015 End : 23-Oct-2015 Discontinued sulfamethoxazole 800 mg / trimethoprim 160 mg oral tablet (3 sources) Dihydrofolate Reductase Inhibitor Antibacterial, Sulfonamide Antimicrobial Start: 05-04-2018 End: 03-27-2019 take 1 tablet by mouth twice daily Bactrim DS 800-160 MG Oral Tablet 1 (one) Tablet bid for 0 days Quantity: 20 {Tablet} Refills: 0 Ordered: 27-Mar-2019 Kadie Kaur LPN Start : 04-May-2018 End : 27-Mar-2019 Inactive tamsulosin hydrochloride 0.4 mg oral capsule (3 sources) alpha-Adrenergic Luis Alberto Start: 06-19-2017 End: 08-25-2017 take 1 capsule by mouth once daily at bedtime Flomax 0.4 MG Oral Capsule 1 (one) Capsule qhs for 0 days Quantity: 14 {Capsule} Refills: 0 Ordered: 25-Aug-2017 Kadie Kaur LPN Start : 19-Jun-2017 End : 25-Aug-2017 Inactive temazepam 15 mg oral capsule (3 sources) Benzodiazepine Start: 01-18-2016 End: 06-19-2017 take 1 capsule by mouth once daily at bedtime as needed Temazepam 15 MG Oral Capsule 1 (one) Capsule qhs prn for 0 days Quantity: 90 {Capsule} Refills: 3 Ordered: 19-Jun-2017 Rachel Andersen LPN Start : 18-Jan-2016 End : 19-Jun-2017 Discontinued Comments: Mail order. ninety Comment on above: Mail order. ninety topiramate 100 mg oral tablet (19 sources) Start: 01-09-2022 End: 07-18-2024 take 1 tablet by mouth twice daily Topiramate 100 mg tablet Discontinued 100 mg PO TWICE A DAY 180 1 February 07, 2024 1:23pm July 18, 2024 10:05am Start: 08-07-2016 End: 08-05-2019 take 1 tablet by mouth once daily Topiramate 100 MG tablet Discontinued 100 mg PO DAILY August 07, 2016 1:00am August 05, 2019 11:38am Start: 01-18-2016 End: 08-25-2017 take 1 tablet by mouth twice daily Topamax 50 MG Oral Tablet 1 Tablet BID for 0 days Quantity: 180 {Tablet} Refills: 3 Ordered: 25-Aug-2017 Kadie Kaur LPN Start : 18-Jan-2016 End : 25-Aug-2017 Inactive Comments: Mail order. Comment on above: Mail order. traMADol hydrochloride 50 mg oral tablet (3 sources) Opioid Agonist Start: 01-18-20 16 End: 06-19-20 17 take 3 tablets by mouth four times daily as needed Ultram 50 MG Oral Tablet 1 Tablet four times daily, as needed for 0 days Quantity: 360 {Tablet} Refills: 0 Ordered: 19-Jun-2017 Rachel Andersen LPN Start : 18-Jan-2016 End : 19-Jun-2017 Discontinued Comments: Mail order. Medication taken as needed. three hundred and sixty Comment on above: Mail order. Medicati on taken as needed. three hundred and sixty varenicline 0.5 mg oral tablet (6 sources) Partial Cholinergic Nicotinic Agonist Start: 05-28-20 10 take 1 tablet by mouth once CHANTIX STARTING MONTH ARTURO, 0.5 MG X 11 &1 MG X 42 (Oral Tablet) 1 Tablet as directed for 0 days Quantity: 1 {package(s)} Refills: 0 Ordered: 23-Jun-2010 Rola Oropeza LPN Start : 28-May-2010 Inactive Start: 05-28-2010 take 1 tablet by bruce th twice daily CHANTIX, 1MG (Oral Tablet) 1 Tablet bid for 0 days Quantity: 60 {Tablet} Refills: 1 Ordered: 23-Jun-2010 Rola Oropeza LPN Start : 28-May-2010 Inactive Comments: after finishes starter pack Comment on above: after finishes start er pack NEGATED: Highlighted row has not occurred!drug or medication (3 sources) No Known Histori sushma Medications Problems Active Problems Problem Classification Problem Date Documented Date Episodic/Chronic Acute bronchitis (3 sources) Acute bronchitis; Translations: [Bronchitis, acute] 03-27-2019 Episodic Administrative/social admission (1 source) Persons encountering health services in other specified circumstances; Translations: [Other reasons for seeking consultation] 11-07-2023 Episodic Anxiety disorders (6 sources) Acute stress disorder; Translations: [Anxiety] Resolved: 05-19-2015 03-27-2019 Chronic Biliary tract disease (12 sources) Biliary calculus; Translations: [Calculus of gallbladder without cholecystitis without obstruction] 01-17-2022 Episodic Calculus of urinary tract (3 sources) History of calculus of kidney; Translations: [History of kidney stones] 03-27-2019 Episodic Diabetes mellitus without complication (2 sources) Type 2 diabetes mellitus without complications; Translations: [Diabetes mellitus without mention of complication, type II or unspecified type, not stated as uncontrolled] Onset: 04-14-2025 11-07-2023 Chronic Diabetes mellitus without complication (6 sources) Impaired fasting glycaemia; Translations: [Impaired fasting glucose] 03-27-2019 Episodic Essential hypertension (6 sources) Hypertensive disorder; Translations: [Essential (primary) hypertension] 01-14-2022 Chronic Comment on above: CONTROLLED WITH MED Genitourinary symptoms and ill-defined conditions (6 sources) Urinary incontinence; Translations: [Urinary incontinence] Resolved: 02-12-2013 05-31-2013 Chronic Genitourinary symptoms and ill-defined conditions (20 sources) Blood in urine; Translations: [Dysuria] Onset: 11-22-2011 Resolved: 08-25-2017 03-27-2019 Episodic Comment on above: suspect stone as in past Immunizations and screening for infectious disease (6 sources) Need for prophylactic vaccination and inoculation against influenza Episodic Malaise and fatigue (3 sources) Malaise and fatigue; Translations: [Malaise and fatigue] 03-27-2019 Episodic Nutritional deficiencies (10 sources) Vitamin D deficiency; Translations: [Vitamin D deficiency, unspecified] 03-27-2019 Chronic Osteoarthritis (3 sources) Priscilla's node; 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 Yuri burleson Other and unspecified benign neoplasm (6 sources) Mature cystic teratoma of right ovary; Translations: [Benign neoplasm of right ovary] 01-17-2022 Episodic Other connective tissue disease (6 sources) Hand pain; Translations: [Hand pain] 03-27-2019 Episodic Comment on above: left more than rt Other hereditary and degenerative nervous system conditions (3 sources) Essential tremor; Translations: [Benign essential tremor] 03-27-2019 Chronic Other hereditary and degenerative nervous system conditions (1 source) Essential tremor; Translations: [Essential and other specified forms of tremor] 11-07-2023 Chronic Other lower respiratory disease (3 sources) Lung mass; Translations: [Lung nodule] 03-27-2019 Episodic Other lower respiratory disease (1 source) Persistent cough; Translations: [Cough, persistent] 04-24-2019 Episodic Other nervous system disorders (15 sources) Tremor Episodic Other nutritional; endocrine; and metabolic disorders (3 sources) Weight gain; Translations: [Weight gain] 03-27-2019 Episodic Comment on above: on adipex and stable Other skin disorders (3 sources) Disorder of connective tissue; Translations: [Connective tissue disease] 03-27-2019 Chronic Other upper respiratory disease (6 sources) Bronchospasm; Translations: [Bronchospasm] 03-27-2019 Episodic Comment on above: ? post viral vs othe r Other upper respiratory disease (3 sources) Pain in throat Episodic Residual codes; unclassified (3 sources) Increased body mass index; Translations: [BMI 29.0-29.9,adult] 03-27-2019 Episodic Residual codes; unclassified (6 sources) Needs influenza immunization; Translations: [Need for prophylactic vaccination and inoculation against influenza] Resolved: 05-31-2013 06-30-2015 Episodic Residual codes; unclassified (3 sources) Requires diphtheria, tetanus and pertussis vaccination; Translations: [Need for Tdap vaccination (Renamed from Need for psszdffeoy-nisqmoq-c ertussis (Tdap) vaccine, adult/adolescent)] 10-12-2016 Episodic Residual codes; unclassified (1 source) Immunization not carried out because of patient refusal; Translations: [Vaccination not carried out because of patient refusal] 11-07-2023 Episodic Rheumatoid arthritis and related disease (6 sources) Inflammatory polyarthropathy; Translations: [Rheumatoid arthritis] 03-27-2019 Chronic Comment on above: Connective tissue di sease, lupus, rheumatoid Skin and subcutaneous tissue infections (9 sources) Cellulitis; Translations: [Infection of skin] Resolved: 12-14-2015 11-17-2015 Episodic Substance-related disorders (20 sources) Smoker; Translations: [Nicotine dependence, cigarettes, uncomplicated] 03-27-2019 Chronic Systemic lupus erythematosus and connective tissue disorders (4 sources) Systemic lupus erythematosus; Translations: [Systemic involvement of connective tissue, unspecified] 03-27-2019 Chronic Past or Other Problems Problem Classification Problem Date Documented Date Episodic/Chronic Chronic obstructive pulmonary disease and bronchiectasis (3 sources) Chronic obstructive pulmonary disease and bronchiectasis Diabetes mellitus without complication (6 sources) Diabetes mellitus without complication Other aftercare (3 sources) High risk drug monitoring status; Translations: [Encounter for long-term (current) use of medications] Resolved: 3 11-05-2015 Episodic Other connective tissue disease (3 sources) Pain in joint, hand; Translations: [Pain in joint, hand] Resolved: 7 06-19-2017 Episodic Other infections; including parasitic (3 sources) Trichomonal vulvovaginitis; Translations: [Vulvovaginitis, trichomonal] Resolved: 2 05-31-2013 Episodic Other inflammatory condition of skin (3 sources) Pruritus of skin; Translations: [Pruritic disorder] Resolved: 2 10-20-2015 Episodic Other lower respiratory disease (3 sources) Dyspnea at rest; Translations: [Shortness of breath at rest] Resolved: 5 05-19-2015 Episodic Other nervous system disorders (3 sources) Abnormal involuntary movement; Translations: [Unspecified abnormal involuntary movements] Resolved: 3 08-19-2015 Episodic Comment on above: Essential tremor vs other with titubationConsider neuro evalDiscussed decrease caffeine consumption will check TSH and continue eval as needed Other nutritional; endocrine; and metabolic disorders (3 sources) Body mass index 30+ - obesity; Translations: [BMI 30.0-30.9,adult] Resolved: 7 09-20-2017 Chronic Other nutritional; endocrine; and metabolic disorders (3 sources) Underweight; Translations: [SYMPTOM, ABNORMAL UNDERWEIGHT] Resolved: 1 05-31-2013 Episodic Other screening for suspected conditions (not mental disorders or infectious disease) (5 sources) Breast neoplasm screening status; Translations: [Encounter for screening for malignant neoplasm of colon] Onset: 5 03-27-2019 Episodic Comment on above: family h/o breast ca Other skin disorders (3 sources) Eruption; Translations: [Rash] Resolved: 5 05-19-2015 Episodic Other upper respiratory disease (3 sources) Allergic rhinitis, cause unspecified; Translations: [Allergic Rhinitis] Resolved: 3 05-31-2013 Chronic Other upper respiratory infections (6 sources) Streptococcal sore throat; Translations: [Sore throat symptom] Resolved: 5 05-19-2015 Episodic Poisoning by nonmedicinal substances (3 sources) Toxic effect of unspecified spider venom, accidental (unintentional), initial encounter; Translations: [Spider bite] Resolved: 4 05-19-2015 Residual codes; unclassified (3 sources) Radiology result abnormal; Translations: [Abnormal findings on diagnostic imaging of other specified body structures] Resolved: 2 11-05-2015 Episodic Spondylosis; intervertebral disc disorders; other back problems (14 sources) Backache; Translations: [Dorsalgia, unspecified] Onset: 5 03-27-2019 Episodic Systemic lupus erythematosus and connective tissue disorders (20 sources) Systemic lupus erythematosus and connective tissue disorders Tuberculosis (9 sources) Tuberculosis Unclassified (20 sources) Unclassified (20 sources) Unspecified Diagnosis Resolved: 5 03-27-2019 Unclassified (6 sources) Tremor NEC (333.1) Unclassified (12 sources) DISEASE, DIFFUSE CONNECTIVE TISSUE NOS (710.9) Unclassified (15 sources) POLYARTHROPATHY, INFLAMMATORY NOS (714.9) Unclassified (3 sources) PRE-OPERATIVE EXAMINATION, UNSPECIFIED (V72.84) Unclassified (12 sources) Patient encounter status; Translations: [Encounter for examination for admission to educational institution] Resolved: 9 03-27-2019 Unclassified (3 sources) Lung nodule (793.11) Unclassified (9 sources) SYMPTOM, MALAISE AND FATIGUE NEC (780.79) Unclassified (9 sources) DEFICIENCY, VITAMIN D NOS (268.9) Unclassified (3 sources) SCHOOL PHYSICAL (V70.5) Unclassified (3 sources) Tuberculosis screening status; Translations: [Screening examination for pulmonary tuberculosis] 03-27-2019 Unclassified (3 sources) SYMPTOM, ABNORMAL UNDERWEIGHT (783.22) Unclassified (6 sources) ABFND, RADIOLOGICAL, BODY STRUCTURE NEC (793.99) Unclassified (3 sources) 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)) Unclassified (6 sources) Pain in joint, hand (719.44) Unclassified (6 sources) Body mass index 20-24 - normal; Translations: [BMI 24.0-24.9, adult] Resolved: 7 08-25-2017 Unclassified (3 sources) Spider bite Unclassified (6 sources) Finding of body mass index; Translations: [BMI between 19-24,adult] Resolved: 7 06-19-2017 Unclassified (3 sources) Rash Unclassified (3 sources) Strep throat Unclassified (3 sources) SCREENING FOR BREAST CANCER (V76.10) Unclassified (3 sources) Vulvovaginitis, trichomonal (131.01) Unclassified (3 sources) Preprocedural examination done; Translations: [Pre-operative examination] Resolved: 3 06-30-2015 Unclassified (3 sources) Shortness of breath at rest Unclassified (3 sources) Skin infection Unclassified (9 sources) Connective tissue disease Unclassified (6 sources) Screening for breast cancer Unclassified (6 sources) BMI 29.0-29.9,adult Unclassified (3 sources) AFTERCARE, LONG-TERM USE, MEDICATIONS NEC (V58.69) Unclassified (3 sources) Need for Tdap vaccination (Renamed from Need for jozbhcexes-ykwbyax-nerau ssis (Tdap) vaccine, adult/adolescent) Unclassified (3 sources) PRURITIC DISORDER NOS (698.9) Unclassified (6 sources) Weight gain Unclassified (3 sources) BMI 30.0-30.9,adult Unclassified (3 sources) Rheumatoid nodulosis with arthritis Unclassified (3 sources) Stress reaction Unclassified (3 sources) Nutritional counseling Unclassified (3 sources) History of kidney stones Unclassified (3 sources) UTI symptoms Unclassified (1 source) Cough, persistent Urinary tract infections (9 sources) Lower urinary tract infectious disease; Translations: [Urinary tract infectious disease] Onset: 4 Resolved: 3 08-18-2015 Episodic Results Test Name Value Interpretation Reference Range Facility Internal Medicine Office Vis zenon 07-31-2025 Internal Medicine Office Visit [facility] Internal Medicine [address] [place] [address] [place] [address] OFFICE VISIT Date of Service: 07/31/25 MR#: [id number] Acct: [id number] Name: GWEN OROPEZA Rep #: [id number] : 1975 Provider: GEORGI Sexton Age/Sex: 50/F Location: [facility] Status: Signed Intake Vital Signs 04/14/25 11:19 07/31/25 12:49 Height 5 ft 4 in 5 ft 4 in Weight: 124 lb 125 lb BMI 21.2 21.4 BP 102/48 L 122/68 H Blood Pressure Location Rt brachial Lt brachial Position Sitting Sitting Respiration 16 16 Pulse 71 73 Pulse Source Monitor Monitor Temp 97.6 F L 97.6 F L Temp Source Temporal Temporal Pulse Oximetry (%) 98 100 Oxygen Delivery Method room air room air Intake Visit Reasons: Ongoing fatigue Chief Complaint: extreme exhaustion Grinding Operator Required: No Accompanied by: Self Is patient in pain?: No Allergies latex Allergy (Mild, Verified 07/31/25 12:48) Rash Medications ???Medication ???Instructions ???Recorded ???Confirmed ???Type meclizine 12.5 mg tablet 12.5 mg PO TID PRN dizziness #20 1 10/15/23 07/31/25 Rx tabs metaxalone 400 mg tablet 800 mg (2 x 400 mg) PO TID-QID PRN 12/20/24 07/31/25 Rx muscle pain #30 tabs lisinopril 10 1 tab PO DAILY #90 TABLETS 5 07/31/25 Rx mg-hydrochlorothiazide 12.5 mg tablet topiramate 100 mg tablet 100 mg PO BID #180 tabs 04/14/25 1 09/30/24 Rx semaglutide 0.25 mg or 0.5 mg (2 0.5 mg (0.736 mL) subcut QWEEK #3 04/29/25 07/31/25 Rx mg/3 mL) subcutaneous pen injector mL Nurse's Note: feeling exhausted all the time sleeping like 11 hours straight [facility] Medical History Lung nodule Diabetes Smoker Essential tremor Rheumatoid arthritis Lupus Kidney stones HTN (hypertension) H/O urinary tract infection Surgical History Hx of cholecystectomy S/P hysterectomy S/P tubal ligation Family History Mother Autoimmune disorder lupus, RA Breast cancer Parkinsons disease Hypertension Sister Autoimmune disorder lupus, sjogren's Aunt Breast cancer Brother Diabetes Father Diabetes Myocardial infarction, Onset Age: 49 Hypertension CVA (cerebral vascular accident) Social History household members: spouse housing: house current occupational status: employed current occupation: [employer] Smoking Status: Current every day smoker tobacco type: cigarettes Electronic Cigarette Use: not used quit status: considering quitting alcohol intake: current alcohol intake frequency: holidays/special occasions only substance use type: does not use what type of physical activity do you participate in: none seatbelt use: always do you feel safe at home: Yes HPI HPI Chief Complaint: extreme exhaustion Details: GWEN OROPEZA, is a 50 F who presents to the office today for exhaustion. She states that she is sleeping almost 11 hours a day. She states that this has been occurring for about 2 months. She states that she didn't realize how much she was sleeping until her pointed it out. She states that she is not taking / requiring naps during the day or falling asleep during the day. She states that she feels fine while at work having no issues staying awake. Its after she eats dinner and then sits down in the recliner when she starts to get tired and eventually falls asleep. No new medications or changes in her medications. Continues to take the Topomax daily (has been on for years) at the same time no recent changes in dosing. She has been on Ozempic for around 8 months now She has not taken the muscle relaxants or the meclizine for at least a few months now She denies having any other acute symptoms or anything that is worth mentioning (no hair loss, heat / cold sensitivities etc) She is active at work and denies any type of shortness of breath, chest pains / pressures, nausea, diaphoresis, dizziness, headache, or other symptoms. No change in dietary intake / eating habits She does not do regular exercise. She states that she is active at work She states that her job is stressful but has been there for 4 years now and there has not been any changes No changes in her bowel habits She does drink heavy caffeine via coffee drinking about 6-8 cups of coffee and then one Coke per day. She states that she occasionally snores She states that she does feel refreshed upon waking in the morning. Patient was diagnosed with a mixed connective tissue disorder back in 2007. She had been seeing Rheumatology and has been on multiple medications. She ended up stopping medications as she was co (more content not included)... Normal [facility] Internal Medicine Office Vis zenon 04-14-2025 Internal Medicine Office Visit [facility] [address] [place] [address] [address] [place] [address] OFFICE VISIT Date of Service: 04/14/25 MR#: [id number] Acct: [id number] Name: GWEN OROPEZA Rep #: [id number] : 1975 Provider: DANNIE morton Age/Sex: 50/F Location: [facility] Status: Signed Intake Vital Signs 12/20/24 14:25 04/14/25 11:19 Height 5 ft 4 in 5 ft 4 in Weight: 127 lb 6 oz 124 lb BMI 21.8 21.2 BP 108/58 L 102/48 L Blood Pressure Location Rt brachial Rt brachial Position Sitting Sitting Respiration 16 16 Pulse 83 71 Pulse Source Monitor Monitor Temp 98.9 F 97.6 F L Temp Source Temporal Temporal Pulse Oximetry (%) 83 98 Oxygen Delivery Method room air room air Intake Visit Reasons: 3 month check Chief Complaint: 3 MONTH CHECK Is patient in pain?: No Allergies latex Allergy (Mild, Verified 04/14/25 11:18) Rash Medications ???Medication ???Instructions ???Recorded ???Confirmed ???Type meclizine 12.5 mg tablet 12.5 mg PO TID PRN dizziness #20 1 10/15/23 04/14/25 Rx tabs metaxalone 400 mg tablet 800 mg (2 x 400 mg) PO TID-QID PRN 12/20/24 04/14/25 Rx muscle pain #30 tabs semaglutide 0.25 mg or 0.5 mg (2 0.5 mg (0.736 mL) subcut QWEEK #3 03/31/25 04/14/25 Rx mg/3 mL) subcutaneous pen injector mL lisinopril 10 1 tab PO DAILY #90 TABLETS 5 04/14/25 Rx mg-hydrochlorothiazide 12.5 mg tablet topiramate 100 mg tablet 100 mg PO BID #180 tabs 04/14/25 0 04/14/25 Rx Have you fallen in the past year?: No PFSH Medical History (Updated 04/14/25 @ 13:44 by Jane Mondragon NP-C) Lung nodule Diabetes Smoker Essential tremor Rheumatoid arthritis Lupus Kidney stones HTN (hypertension) H/O urinary tract infection Surgical History Hx of cholecystectomy S/P hysterectomy S/P tubal ligation Family History Mother Autoimmune disorder lupus, RA Breast cancer Parkinsons disease Hypertension Sister Autoimmune disorder lupus, sjogren's Aunt Breast cancer Brother Diabetes Father Diabetes Myocardial infarction, Onset Age: 49 Hypertension CVA (cerebral vascular accident) Social History household members: spouse housing: house current occupational status: employed current occupation: [employer] Smoking Status: Current every day smoker tobacco type: cigarettes Electronic Cigarette Use: not used quit status: considering quitting alcohol intake: current alcohol intake frequency: holidays/special occasions only substance use type: does not use what type of physical activity do you participate in: none seatbelt use: always do you feel safe at home: Yes HPI HPI Chief Complaint: 3 MONTH CHECK Details: GWEN OROPEZA, is a 50 F who presents to the office today for a routine follow-up. She does need refills. She reports she is doing better in terms of eating healthy and has been staying active. She doesn't check her sugars at home. She is taking her medication as prescribed without problems. She does her injection on Monday or Monday. She hasn't had any problems with the medication. She does try to monitor her carbohydrate and sugar intake. She is up to date on her diabetic eye exam and doesn't see podiatry. She does monitor her feet closely, however. She doesn't check her blood pressure at home. She is taking her medication as prescribed without problems. She does try to monitor her salt intake somewhat. The patient takes topamax for her essential tremor. She has been on that for about 10 years. She states it does seem to help without problems. ROS Const Constitutional: No body ache, chills, excessive sweating, fatigue, fever(s), frequent falls, headache(s), snoring, weakness, sleep problems or change in appetite Eyes Eyes: No blurry vision, change in vision or Light sensitivity ENT ENT: No abnormal hearing, ear or mastoid pain, tinnitus, nasal congestion, nasal discharge, headache(s), neck pain or sore throat Resp Respiratory: No cough, shortness of breath, snoring or wheezing Cardio Cardiology: No chest pain at rest, chest pain with exertion, excessive sweating, shortness of breath, dyspnea on exertion, lightheadedness, orthopnea or palpitations Gastro GI: No abdominal pain, change in bowel habits, constipation, cramping, diarrhea or nausea/dyspepsia Genitourinary-Female: No burning urination, painful urination, urinary incontinence or urinary frequency Musc Musculoskeletal: No abnormal gait, joint pain, back pain, limited range of motion, muscle weakness, neck pain or numbness Skin Skin: No dry skin, redness, lesions, itchy eyes, rash or wounds Neuro Neurology: No abnormal gait, abnormal hearing, weak (more content not included)... Normal [facility] Thoracic Spine 3 Viewson Thoracic Spine 3 Views [facility] Imaging Services [address] [place] [address] Thoracic Spine 3 Views MR#: [id number] Acct: [id number] Name: GWEN OROPEZA Rep #: [id number] : 1975 F 49 From: Arian Christina MD PCP: Dr. Mariza You MD Status: REG CLI Study: Thoracic Spine 3 Views Date of Exam: 12/24/24 Exam# [id number] Ordering Dr: Geo Alfonso PROCEDURE: THORACIC SPINE 3 VIEWS 12/24/2024 REASON FOR EXAM: PAIN TECHNIQUE: Two views of the thoracic spine, AP and 2 lateral, 3 total images COMPARISON: None available FINDINGS: 12 rib-bearing thoracic vertebral body types identified. T1 and T2 are not well seen on the lateral views, appear within limits on the AP view. No evidence of fracture or malalignment identified. The disc spaces appear within limits as visualized. No osseous lesion identified. RAD/Thoracic Spine 3 Views IMPRESSION: T1 and T2 are not well seen on the lateral views, appear within limits on the AP view. No evidence of fracture or malalignment identified. The disc spaces appear within limits as visualized. No osseous lesion identified. Reading Location: [facility] CC: Dr. Mariza You MD; GEORGI Sexton Control Board Operator: Signed Normal [facility] Internal Medicine Office Vis iton 12-20-2024 Internal Medicine Office Visit [facility] [address] [place] [address] [place] [address] OFFICE VISIT Date of Service: 12/20/24 MR#: [id number] Acct: [id number] Name: GWEN OROPEZA Rep #: [id number] : 1975 Provider: GEORGI Sexton Age/Sex: 49/F Location: [facility] Status: Signed Intake Vital Signs 08/15/24 10:57 12/20/24 14:25 Height 5 ft 4 in 5 ft 4 in Weight: 137 lb 127 lb 6 oz BMI 23.5 21.8 BP 118/70 108/58 L Blood Pressure Location Lt brachial Rt brachial Position Sitting Sitting Respiration 16 16 Pulse 75 83 Pulse Source Monitor Monitor Temp 97.2 F L 98.9 F Temp Source Temporal Temporal Pulse Oximetry (%) 99 83 Oxygen Delivery Method room air room air Intake Visit Reasons: back pain xfew weeks Chief Complaint: back pain Grinding Operator Required: No Accompanied by: Self Is patient in pain?: Yes (with standing with movement 1-2) Pain scale (1-10): 6 Allergies latex Allergy (Mild, Verified 12/20/24 14:23) Rash Medications ???Medication ???Instructions ???Recorded ???Confirmed ???Type topiramate 100 mg tablet 100 mg PO BID #180 tabs 07/18/24 0 12/20/24 Rx lisinopril 10 1 tab PO DAILY #90 tabs 08/15/24 0 12/20/24 Rx mg-hydrochlorothiazide 12.5 mg tablet meclizine 12.5 mg tablet 12.5 mg PO TID PRN dizziness #20 1 10/15/23 12/20/24 Rx tabs semaglutide 0.25 mg or 0.5 mg (2 0.25 mg (0.368 mL) subcut QWEEK #3 11/26/24 12/20/24 Rx mg/3 mL) subcutaneous pen injector mL metaxalone 400 mg tablet 800 mg (2 x 400 mg) PO TID-QID PRN 12/20/24 12/20/24 Rx muscle pain #30 tabs Have you fallen in the past year?: No PFSH Medical History Lung nodule Diabetes Smoker Essential tremor Rheumatoid arthritis Lupus Kidney stones HTN (hypertension) H/O urinary tract infection Surgical History Hx of cholecystectomy S/P hysterectomy S/P tubal ligation Family History Mother Autoimmune disorder lupus, RA Breast cancer Parkinsons disease Hypertension Sister Autoimmune disorder lupus, sjogren's Aunt Breast cancer Brother Diabetes Father Diabetes Myocardial infarction, Onset Age: 49 Hypertension CVA (cerebral vascular accident) Social History household members: spouse housing: house current occupational status: employed current occupation: [employer] Smoking Status: Current every day smoker tobacco type: cigarettes Electronic Cigarette Use: not used quit status: considering quitting alcohol intake: current alcohol intake frequency: holidays/special occasions only substance use type: does not use what type of physical activity do you participate in: none seatbelt use: always do you feel safe at home: Yes HPI HPI Chief Complaint: back pain Details: GWEN OROPEZA, is a 49 F who presents to the office today for back pains. She states that she started to notice the discomfort about 3 weeks ago. She states that there was no acute injury or inciting incident. She states that there is nothing new in terms of physical activities (hobbies / employment). Patient states that her pains are worse when she is standing. She states that even walking she dos not have the pains nearly as bad as when she has to just stand there. She states that when she sits down that the pains move to a different place. Pains in the back on standing are between the shoulder blades and then when sitting she states that it seems to be lower on the right side. She has not had any radicular symptoms down the legs. Denies any numbness tingling. no previous back injuries or issues. PAtient is a smoker 1/2 pack per day and has on and off since she was 15. 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 She has tried to take Aleve and some heat to the area. She tried some ice which she thought made this worse. ROS Const Constitutional: No body ache, excessive sweating, fatigue, fever(s), frequent falls, headache(s), snoring, weakness, weight change, sleep problems or change in appetite Eyes Eyes: No blurry vision, change in vision, eye pain or Light sensitivity ENT ENT: No abnormal hearing, ear or mastoid pain, tinnitus, nasal congestion, headache(s), neck pain or sore throat Resp Respiratory: No cough, shortness of breath, snoring or wheezing Cardio Cardiology: No chest pain at rest, chest pain with exertion, excessive sweating, shortness of breath, dyspnea on exertion, lightheadedness, orthopnea (more content not included)... Normal [facility] SCRN MAMM (CAD)W/BECCA BILATo n 09-11-2024 SCRN MAMM (CAD)W/BECCA BILAT [facility] Imaging Services [address] [place], [place] [address] SCRN MAMM (CAD)W/BECCA BILAT MR#: [id number] Acct: [id number] Name: GWEN OROPEZA Rep #: [id number] : 1975 F 49 From: Sree gillespie MD PCP: Dr. Mariza You MD Status: [facility] Study: SCRN MAMM (CAD)W/BECCA BILAT Date of Exam: 08/25 05/18 Exam# [id number] Ordering Dr: Mariza You MD [id number] MAMMOGRAPHY - BILATERAL SCREENING REASON FOR EXAM: Female, 49 years old. Routine annual screening examination. PERTINENT HISTORY: Mother with breast cancer. Aunt with breast cancer. TECHNIQUE: Digital bilateral breast becca (3D mammographic acquisition) in the CC and MLO projections. 2-D mediolateral oblique (MLO) and craniocaudad (CC) views of both breasts were obtained. CAD: Full Field Digital Mammography with Computer Added Detection was performed. COMPARISON: Comparison is made with prior study dated April 11, 2022 and July 14, 2018. FINDINGS: Breast Composition: The breasts are heterogeneously dense, which may obscure small masses. There are no dominant masses or suspicious calcifications. Stable small axillary lymph nodes. No other significant abnormalities are identified. There has been no significant change since the prior study. BI/SCRN MAMM (CAD)W/BECCA BILAT IMPRESSION: Stable bilateral screening mammogram. Yearly follow-up mammogram recommended. (A) ASSESSMENT CATEGORY: BIRADS Category 2: Benign. A letter regarding these results will be sent to the patient by the facility within 30 days. Approximately 10% of breast cancers are not detected by mammography. A normal mammogram should not delay biopsy of a clinically suspicious abnormality. [id number] Electronically Signed: Sree Corona MD at 11:11 EST , CC: Dr. Mariza You MD Control Board Operator: Signed Normal [facility] Urine Cultureon 08-15-2024 [facility] Presumptive E. coli [place] Count >100,000 Presumptive E. coli: REACTION Ampicillin Islt MAXI >=32 Ampicillin+Sulbac Islt MAXI 16 I ceFAZolin Islt MAXI <=4 S Cefepime Islt MAXI <=0.12 S cefTRIAXone Islt MAXI <=0.25 S Ciprofloxacin Islt MAXI <=0.25 S B-Lactamase Extended Susc Islt NEG Gentamicin Islt MAXI <=1 S Imipenem Islt MAXI <=0.25 S levoFLOXacin Islt MAXI <=0.12 S Nitrofurantoin Islt MAXI <=16 S Pip+Tazo Islt MAXI <=4 S Tobramycin Islt MAXI <=1 S TMP SMX Islt MAXI <=20 S Normal [facility] Comment on above: Performed By: #### M [id number] #### [facility] [address] [place], [address] Internal Medicine Office Vis itoadrianna 08-14-2024 Internal Medicine Office Visit [facility] [place], [place] [address] OFFICE VISIT Date of Service: 08/15/24 MR#: [id number] Acct: [id number] Name: GWEN OROPEZA Rep #: [id number] : 1975 Provider: Dr. Mariza becerra MD Age/Sex: 49/F Location: [facility] [place] Status: Signed Intake Vital Signs 02/07/24 13:06 08/13/24 13:13 08/15/24 10:57 Height 5 ft 4 in 5 ft 4 in 5 ft 4 in Weight: 137 lb BMI 23.5 BP 118/70 Blood Pressure Location Lt brachial Position Sitting Respiration 16 Pulse 75 Pulse Source Monitor Temp 97.2 F L Temp Source Temporal Pulse Oximetry (%) 99 Oxygen Delivery Method room air Intake Visit Reasons: 6 M FU Chief Complaint: 6m f/u Grinding Operator Required: No Accompanied by: Self Is patient in pain?: No Allergies latex Allergy (Mild, Verified 08/15/24 10:55) Rash Medications ???Medication ???Instructions ???Recorded ???Confirmed ???Type topiramate 100 mg tablet 100 mg PO BID #180 tabs 07/18/24 08/15/24 Rx nitrofurantoin 100 mg PO Q12H 5 days #10 caps 08/13/24 08/15/24 Rx monohydrate/macrocrystal s 100 mg capsule (Macrobid) lisinopril 10 1 tab PO DAILY #90 tabs 08/15/24 08/15/24 Rx mg-hydrochlorothiazide 12.5 mg tablet meclizine 12.5 mg tablet 12.5 mg PO TID PRN dizziness #20 08/15/24 08/15/24 Rx tabs semaglutide 0.25 mg or 0.5 mg (2 0.25 mg (0.368 mL) subcut QWEEK #3 08/15/24 08/15/24 Rx mg/3 mL) subcutaneous pen injector mL PFSH Medical History Lung nodule Diabetes Smoker Essential tremor Rheumatoid arthritis Lupus Kidney stones HTN (hypertension) H/O urinary tract infection Surgical History Hx of cholecystectomy S/P hysterectomy S/P tubal ligation Family History Mother Autoimmune disorder lupus, RA Breast cancer Parkinsons disease Hypertension Sister Autoimmune disorder lupus, sjogren's Aunt Breast cancer Brother Diabetes Father Diabetes Myocardial infarction, Onset Age: 49 Hypertension CVA (cerebral vascular accident) Social History household members: spouse housing: house current occupational status: employed current occupation: [employer] Smoking Status: Current every day smoker tobacco type: cigarettes Electronic Cigarette Use: not used quit status: considering quitting alcohol intake: current alcohol intake frequency: holidays/special occasions only substance use type: does not use what type of physical activity do you participate in: none seatbelt use: always do you feel safe at home: Yes HPI HPI Chief Complaint: 6m f/u Details: GWEN OROPEZA, is a 49 F who presents to the office today for a follow up. She is up to date on her routine blood work and is due for a mammogram. She doesn't want a flu shot. She does smoke. She still has patches at home and plans on starting them. She does need refills. She reports she is doing better in terms of eating healthy and has been staying active. She doesn't check her sugars at home. She is taking her medication as prescribed without problems. She does her injection on Monday or Monday. She hasn't had any problems with the medication. She does try to monitor her carbohydrate and sugar intake. She is up to date on her diabetic eye exam and doesn't see podiatry. She does monitor her feet closely, however. She doesn't check her blood pressure at home. She is taking her medication as prescribed without problems. She does try to monitor her salt intake somewhat. The patient takes topamax for her essential tremor. She has been on that for about 10 years. She states it does seem to help without problems. She reports her UTI symptoms from earlier in the week are feeling better. The patient reports in the last 2 days, she has been having some dizziness where it feels like the room is spinning. She reports this morning she bent over and noticed the symptoms again. She hasn't any ear pain/drainage or URI symptoms. She has had it before and it went away on its own. She denies any nausea or vomiting. She states her symptoms seem to improve with position changes. ROS Const Constitutional: Positive for weight change (22 pound weight loss); No body ache, chills, excessive sweating, fatigue, fever(s), frequent falls, headache(s), snoring, weakness or change in appetite Eyes Eyes: No blurry vision, change in vision, eye pain or Light sensitivity ENT ENT: Positive for dizziness/vertigo; No abnormal hearing, ear or mastoid pain, ear discharge, tinnitus, nasal congestion, headache(s), neck pain or sore throat Resp Respiratory: No cough, shortness of breath, snoring or wheezing Cardio C (more content not included)... Normal [facility] Internal Medicine Office Vis iton 08-13-2024 Internal Medicine Office Visit [facility] [address] [place], [place] [address] OFFICE VISIT Date of Service: 08/13/24 MR#: [id number] Acct: [id number] Name: GWEN OROPEZA Rep #: [id number] : 1975 Provider: Dr. Mariza becerra MD Age/Sex: 49/F Location: [facility] [place] Status: Signed Intake Vital Signs 02/07/24 13:06 08/13/24 13:13 Height 5 ft 4 in 5 ft 4 in Weight: 137 lb 2 oz BMI 23.5 BP 118/80 Blood Pressure Location Lt brachial Position Sitting Respiration 16 Pulse 79 Pulse Source Monitor Temp 97.8 F Temp Source Temporal Pulse Oximetry (%) 99 Oxygen Delivery Method room air Intake Visit Reasons: Urinary tract infection Grinding Operator Required: No Accompanied by: Self Is patient in pain?: Yes Allergies latex Allergy (Mild, Verified 08/13/24 13:08) Rash Medications ???Medication ???Instructions ???Recorded ???Confirmed ???Type lisinopril 10 1 tab PO DAILY 08/05/19 08/13/24 History mg-hydrochlorothiazide 12.5 mg tablet semaglutide 0.25 mg or 0.5 mg (2 0.25 mg (0.368 mL) subcut QWEEK #3 04/22/24 08/13/24 Rx mg/3 mL) subcutaneous pen injector mL topiramate 100 mg tablet 100 mg PO BID #180 tabs 07/18/24 08/13/24 Rx nitrofurantoin 100 mg PO Q12H 5 days #10 caps 08/13/24 08/13/24 Rx monohydrate/macrocrystal s 100 mg capsule (Macrobid) PFSH Medical History Lung nodule Diabetes Smoker Essential tremor Rheumatoid arthritis Lupus Kidney stones HTN (hypertension) H/O urinary tract infection Surgical History Hx of cholecystectomy S/P hysterectomy S/P tubal ligation Family History Mother Autoimmune disorder lupus, RA Breast cancer Parkinsons disease Hypertension Sister Autoimmune disorder lupus, sjogren's Aunt Breast cancer Brother Diabetes Father Diabetes Myocardial infarction, Onset Age: 49 Hypertension CVA (cerebral vascular accident) Social History household members: spouse housing: house current occupational status: employed current occupation: [employer] Smoking Status: Current every day smoker tobacco type: cigarettes Electronic Cigarette Use: not used quit status: considering quitting alcohol intake: current alcohol intake frequency: holidays/special occasions only substance use type: does not use what type of physical activity do you participate in: none seatbelt use: always do you feel safe at home: Yes HPI HPI Details: GWEN OROPEZA, is a 49 F who presents to the office today for an acute visit. She has concerns about a possible UTI. She reports that she is having dysuria. She reports she has been having symptoms since yesterday. She reports she isn't drinking much water. She was drinking a lot of alcohol and caffeine with recently being on vacation. She reports she felt chilled, but doesn't have any fevers. She denies any abdominal pain, nausea, vomiting or flank pain. She hasn't tried taking or doing anything for her symptoms. She states it has been a long time since she has had a UTI, but states it has been similar symptoms in the past. She reports she was having some dizziness this morning. ROS Const Constitutional: Positive for chills and fever(s); No body ache, excessive sweating, fatigue, frequent falls, headache(s), snoring, weakness or change in appetite Eyes Eyes: No blurry vision, change in vision, eye pain or Light sensitivity ENT ENT: No abnormal hearing, ear or mastoid pain, tinnitus, nasal congestion, headache(s), neck pain or sore throat Resp Respiratory: No cough, shortness of breath, snoring or wheezing Cardio Cardiology: No chest pain at rest, chest pain with exertion, excessive sweating, dyspnea on exertion, lightheadedness, orthopnea or palpitations Gastro GI: No abdominal pain, change in bowel habits, constipation, cramping, diarrhea, nausea/dyspepsia or vomiting Genitourinary-Female: Positive for burning urination, painful urination and urinary frequency; No difficulty urinating or blood in urine Musc Musculoskeletal: No abnormal gait, joint pain, back pain, limited range of motion, muscle weakness, neck pain or numbness Skin Skin: No dry skin, redness, lesions, itchy eyes, rash or wounds Neuro Neurology: Positive for dizziness; No abnormal gait, abnormal hearing, weakness, frequent falls, headache(s), memory loss, numbness or fainting Psych Psychiatric: No anxiety, No change in appetite, No depression, No memory loss and No Thoughts of harming yourself/Others Endo Endocrine: No cold intolerance, excessive sweating, fatigue, flushing, heat intolerance, increased thirst/drinking or increased hu (more content not included)... Normal [facility] Absolute lymphocyte countOrd ered By: Mariza You on 12-09-2023 Lymphocytes Auto (Unsp spec) [#/Vol] 3.28 10*3/uL 0.83-4.51 [facility] Automated lymphocyte count a s percentage of total leukocytesOrdered By: Mariza You on 12-09-2023 Lymphocytes/100 WBC Auto (Unsp spec) 32.3 % 19-41 [facility] Basophil percentageOrdered B y: Mariza You on 12-09-2023 Basophils/100 WBC (Bld) 0.7 % 0-1 [facility] Bilirubin [Mass/Vol] 0.40 mg/dL 0.20-1.00 [facility] Comment on above: For patients on eltr ombopag therapy, use of Dimension [place] TBIL is not recommended. Chloride [Moles/Vol] 114 mmol/L 98-107 [facility] Cholesterol [Mass/Vol] 195 mg/dL <200 [facility] Comment on above: <200 mg/dL Desirable 200-240 mg/dL Borderline >240 mg/dL High Risk Eosinophils/100 WBC (Bld) 3.0 % 0-5 [facility] Glucose [Mass/Vol] 189 mg/dL 74-106 [facility] Comment on above: Fasting Glucose resu lt greater than or equal to 126 mg/dL suggests DIABETES MELLITUS per A.D.A. criteria. Hemoglobin (Bld) [Mass/Vol] 15.0 g/dL 12.0-15.0 [facility] Monocytes/100 WBC (Bld) 6.1 % 0-10 [facility] Neutrophils (Bld) [#/Vol] 5.8 10*3/uL 2.0-7.7 [facility] Neutrophils/100 WBC (Bld) 57.5 % 47-70 [facility] Potassium [Moles/Vol] 4.7 mmol/L 3.5-5.1 [facility] Protein [Mass/Vol] 7.4 g/dL 6.4-8.2 [facility] Sodium [Moles/Vol] 141 mmol/L 136-145 [facility] Triglyceride [Mass/Vol] 147 mg/dL <199 [facility] Comment on above: The drugs N-Acetylcy steine and Metamizole may falsely depress this assay.Serum Triglycerides Reference Interval Normal <150 mg/dL Borderline high 150 - 199 mg/dL High 200 - 499 mg/dL Very High > or = 500 mg/dL WBC (Bld) [#/Vol] 10.2 10*3/uL 4.4-11.0 [facility] Determination of erythrocyte mean corpuscular volume (MCV)Ordered By: Mariza You on 12-09-2023 MCV (RBC) [Entitic vol] 91.8 fL 81-99 [facility] Erythrocyte distribution wid th ratioOrdered By: Mariza You on 12-09-2023 Erythrocyte distribution width (RBC) [Ratio] 13.2 % 11.6-14.6 [facility] Erythrocyte distribution wid th standard deviationOrdered By: Mariza You on 12-09-2023 Erythrocyte distribution width (RBC) [Entitic vol] 45.1 fL 35.1-43.9 [facility] Hematocrit Auto (Bld) [Volum e fraction]Ordered By: Mariza You on 12-09-2023 Hematocrit (Bld) [Volume fraction] 47.2 % 37-47 [facility] Immature granulocytes/100 WB C Auto (Bld)Ordered By: Mariza You on 12-09-2023 Immature granulocytes/100 WBC (Bld) 0.400 % 0.0-0.9 [facility] Comment on above: IG% - Immature Granu locytes (promyelocytes, myelocytes and metamyelocytes) > 1% indicates that a LEFT SHIFT is Present. Laboratory - Chemistry and C hemistry - challengeOrdered By: Mariza You on 12-09-2023 Albumin/Globulin [Mass ratio] 0.9 {ratio} 0.9-2.4 [facility] ALP [Catalytic activity/Vol] 140 U/L 45-117 [facility] ALT [Catalytic activity/Vol] 28 U/L 13-56 [facility] Cholesterol in HDL [Mass/Vol] 36 mg/dL >40 [facility] Comment on above: The drugs N-Acetylcy steine and Metamizole may falsely depress this assay. Reference Range HDL <40 mg/dL Low HDL Cholesterol HDL >or= 60 mg/dL High HDL Cholesterol Cholesterol in LDL [Mass/Vol] 130 mg/dL 0-130 [facility] CO2 [Moles/Vol] 25.0 mmol/L 21.0-32.0 [facility] Globulin (S) [Mass/Vol] 3.8 g/dL 2.2-4.2 [facility] Urea nitrogen/Creatinine [Mass ratio] 23.4 mg/mg 10-20 [facility] Laboratory - Hematology and Cell countsOrdered By: Mariza You on 12-09-2023 MCH (RBC) [Entitic mass] 29.2 pg 27.0-32.0 [facility] MCHC (RBC) [Mass/Vol] 31.8 g/dL 32-36 [facility] Nucleated RBC/100 WBC (Bld) [Ratio] 0 % 0-5 [facility] Platelet mean volume (Bld) [Entitic vol] 11.1 fL 6.2-12.0 [facility] Platelets (Bld) [#/Vol] 287 10*3/uL 150-450 [facility] No Panel InformationOrdered By: Mariza You on 12-09-2023 Estimated GFR (MDRD) Amer 109 mL/min >60 [facility] Comment on above: GFR Calc Estimated GFR (MDRD) Non-Af Amer 90 mL/min >60 [facility] Comment on above: Non- GFR Calc Vitamin D 25-Hydroxy 19.1 ng/mL [facility] Comment on above: Vitamin D 25(OH) Sta tus Range Deficiency <20 ng/mL (50nmol/L) Insufficiency 20 - 30 ng/mL (50 - 75 nmol/L) Sufficiency 30 - 100 ng/mL (75 - 250 nmol/L) Toxicity >100 ng/mL (>250 nmol/L) VLDL Cholesterol 29 mg/dL 5-40 [facility] RBC Auto (Bld) [#/Vol]Ordere d By: Mariza You on 12-09-2023 RBC (Bld) [#/Vol] 5.14 10*6/uL 4.2-5.4 [facility] Serum or plasma calcium salomon urement (mass/volume)Ordered By: Mariza You on 12-09-2023 Calcium [Mass/Vol] 9.1 mg/dL 8.5-10.1 [facility] Serum or plasma creatinine m easurement (mass/volume)Ordered By: Mariza You on 12-09-2023 Creatinine [Mass/Vol] 0.73 mg/dL 0.55-1.02 [facility] Comment on above: The validity of the calculated GFR & GFRAA in patients over 70 years has not been determined. Clinical correlation is essential. Serum or plasma thyroid stim ulating hormone (TSH) measurement (units/volume)Ordered By: Mariza You on 12-09-2023 TSH Qn 1.90 uIU/mL 0.358-3.74 [facility] Serum or plasma urea nitroge n measurement (mass/volume)Ordered By: Mariza You on 12-09-2023 Urea nitrogen [Mass/Vol] 17 mg/dL 7-18 [facility] Thin prep Papanicolaou smear with manual screeningOrdered By: Mariza You on 12-09-2023 Thin prep Papanicolaou smear with manual screening 3.6 g/dL 3.2-5.0 [facility] Thin prep Papanicolaou smear with manual screening 14 U/L 15-37 [facility] Thin prep Papanicolaou smear with manual screening 2 5-15 [facility] Laboratory - Hematology and Cell countson 11-07-2023 HbA1c (Bld) [Mass fraction] 7.8 % 4.2-6.3 [facility] Glucose Glucometer (BldC) [M ass/Vol]on 01-17-2022 Glucose [Mass/Vol] 258 mg/dL 74-106 [facility] Work Phone: Comment on above: MANAGEMENT OF PATIEN T CARE PER NURSING PROTOCOL Whole blood hemoglobin A1c/t otal hemoglobin ratio (mass fraction)on 01-15-2022 HbA1c (Bld) [Mass fraction] 5.8 % 3.8-5.6 [facility] Work Phone: Comment on above: Normal < 5.7 % Predi abetic 5.7 - 6.4 % Diabetic >or= 6.5 % Please note range changes. Absolute lymphocyte counton 01-09-2022 Lymphocytes Auto (Unsp spec) [#/Vol] 2.29 10*3/uL 0.83-4.51 [facility] Work Phone: Basophil percentageon 2021 Basophil percentage 0 SEEN /hpf 0-5 [facility] Work Phone: Basophils/100 WBC (Bld) 0.3 % 0-1 [facility] Work Phone: Bilirubin [Mass/Vol] 0.20 mg/dL 0.20-1.00 [facility] Work Phone: Comment on above: For patients on eltr ombopag therapy, use of Dimension [place] TBIL is not recommended. Chloride [Moles/Vol] 113 mmol/L 98-107 [facility] Work Phone: Eosinophils/100 WBC (Bld) 1.3 % 0-5 [facility] Work Phone: Glucose [Mass/Vol] 172 mg/dL 74-106 [facility] Work Phone: Comment on above: Fasting Glucose resu lt greater than or equal to 126 mg/dL suggests DIABETES MELLITUS per A.D.A. criteria. Neutrophils (Bld) [#/Vol] 8.8 10*3/uL 2.0-7.7 [facility] Work Phone: Neutrophils/100 WBC (Bld) 73.5 % 47-70 [facility] Work Phone: Potassium [Moles/Vol] 3.8 mmol/L 3.5-5.1 [facility] Work Phone: Protein [Mass/Vol] 7.1 g/dL 6.4-8.2 [facility] Work Phone: Sodium [Moles/Vol] 143 mmol/L 136-145 [facility] Work Phone: WBC (Bld) [#/Vol] 12.0 10*3/uL 4.4-11.0 [facility] Work Phone: Bilirubin Test strip Ql (U)o n 01-09-2022 Bilirubin Ql (U) Negative Negative [facility] Work Phone: Blood erythrocytes count (nu mber/volume)on 01-09-2022 RBC (Bld) [#/Vol] 4.74 10*6/uL 4.2-5.4 [facility] Work Phone: Blood hemoglobin measurement (mass/volume)on 01-09-2022 Hemoglobin (Bld) [Mass/Vol] 14.4 g/dL 12.0-15.0 [facility] Work Phone: Blood lymphocytes/100 leukoc yteson 01-09-2022 Lymphocytes/100 WBC (Bld) 19.1 % 19-41 [facility] Work Phone: Blood monocytes/100 leukocyt eson 01-09-2022 Monocytes/100 WBC (Bld) 5.3 % 0-10 [facility] Work Phone: Blood platelet mean volumeon 01-09-2022 Platelet mean volume (Bld) [Entitic vol] 11.1 fL 6.2-12.0 [facility] Work Phone: Determination of erythrocyte mean corpuscular volume (MCV)on 01-09-2022 MCV (RBC) [Entitic vol] 92.0 fL 81-99 [facility] Work Phone: Hematocrit Auto (Bld) [Volum e fraction]on 01-09-2022 Hematocrit (Bld) [Volume fraction] 43.6 % 37-47 [facility] Work Phone: Ketones Test strip Ql (U)on 01-09-2022 Ketones Ql (U) Negative Negative [facility] Work Phone: Laboratory - Chemistry and C hemistry - challengeon 01-09-2022 ALP [Catalytic activity/Vol] 111 U/L 45-117 [facility] Work Phone: ALT [Catalytic activity/Vol] 34 U/L 13-56 [facility] Work Phone: CO2 [Moles/Vol] 25.0 mmol/L 21.0-32.0 [facility] Work Phone: Globulin (S) [Mass/Vol] 3.5 g/dL 2.2-4.2 [facility] Work Phone: Lipase [Catalytic activity/Vol] 157 U/L 73-393 [facility] Work Phone: Urea nitrogen/Creatinine [Mass ratio] 32.1 mg/mg 10-20 [facility] Work Phone: Laboratory - Hematology and Cell countson 01-09-2022 Erythrocyte distribution width (RBC) [Entitic vol] 46.2 fL 35.1-43.9 [facility] Work Phone: Erythrocyte distribution width (RBC) [Ratio] 13.6 % 11.6-14.6 [facility] Work Phone: Immature granulocytes/100 WBC (Bld) 0.500 % 0.0-0.9 [facility] Work Phone: Comment on above: IG% - Immature Granu locytes (promyelocytes, myelocytes and metamyelocytes) > 1% indicates that a LEFT SHIFT is Present. MCH (RBC) [Entitic mass] 30.4 pg 27.0-32.0 [facility] Work Phone: Nucleated RBC/100 WBC (Bld) [Ratio] 0 % 0-5 [facility] Work Phone: MCHC Auto (RBC) [Mass/Vol]on 01-09-2022 MCHC (RBC) [Mass/Vol] 33.0 g/dL 32-36 [facility] Work Phone: Mucus LM Ql (Urine sed)on Mucus Ql (Urine sed) 0 SEEN /hpf [facility] Work Phone: Nitrite Test strip Ql (U)on 01-09-2022 Nitrite Ql (U) Negative Negative [facility] Work Phone: No Panel Informationon 01-09 Estimated Creatinine Clearance Calc 74.14 ml/min [facility] Work Phone: Estimated GFR (MDRD) Amer 97 mL/min >60 [facility] Work Phone: Comment on above: GFR Calc Estimated GFR (MDRD) Non-Af Amer 80 mL/min >60 [facility] Work Phone: Comment on above: Non- GFR Calc Platelets bldon 01-09-2022 Platelets (Bld) [#/Vol] 281 10*3/uL 150-450 [facility] Work Phone: Protein Test strip Ql (U)on 01-09-2022 Protein Ql (U) Negative Negative [facility] Work Phone: Serum or plasma albumin salomon urement (mass/volume)on 01-09-2022 Albumin [Mass/Vol] 3.6 g/dL 3.2-5.0 [facility] Work Phone: Serum or plasma albumin/glob ulin mass ratioon 01-09-2022 Albumin/Globulin [Mass ratio] 1.0 {ratio} 0.9-2.4 [facility] Work Phone: Serum or plasma calcium salomon urement (mass/volume)on 01-09-2022 Calcium [Mass/Vol] 8.6 mg/dL 8.5-10.1 [facility] Work Phone: Serum or plasma creatinine m easurement (mass/volume)on 01-09-2022 Creatinine [Mass/Vol] 0.81 mg/dL 0.55-1.02 [facility] Work Phone: Comment on above: The validity of the calculated GFR & GFRAA in patients over 70 years has not been determined. Clinical correlation is essential. Serum or plasma urea nitroge n measurement (mass/volume)on 01-09-2022 Urea nitrogen [Mass/Vol] 26 mg/dL 7-18 [facility] Work Phone: Squamous epithelial cells de tection in urine sediment by light microscopyon 01-09-2022 Epithelial cells.squamous LM Ql (Urine sed) 0-5 SEEN /hpf 5-10 [facility] Work Phone: Thin prep Papanicolaou smear with manual screeningon 01-09-2022 Thin prep Papanicolaou smear with manual screening 27 U/L 15-37 [facility] Work Phone: Thin prep Papanicolaou smear with manual screening 5 5-15 [facility] Work Phone: Urine blood detectionon 12-24 RBC Ql (U) 150 /ul Negative [facility] Work Phone: RBC Ql (U) 0-5 SEEN /hpf 0-5 [facility] Work Phone: Urine clarityon 01-09-2022 Clarity (U) Clear Clear [facility] Work Phone: Urine color determinationon 01-09-2022 Color (U) Yellow Yellow [facility] Work Phone: Urine glucose detectionon Glucose Ql (U) Normal mg/dl Normal [facility] Work Phone: Urine leukocyte esterase det ection by dipstickon 01-09-2022 Leukocyte esterase Test strip Ql (U) Negative Negative [facility] Work Phone: Urine pHon 01-09-2022 pH (U) 5.0 [pH] 5.0 - 8.0 [facility] Work Phone: Urine sediment bacteria coun t by microscopy (number/high power field)on 01-09-2022 Bacteria LM.HPF (Urine sed) [#/Area] 1 /[HPF] None Seen [facility] Work Phone: Urine specific gravity measu rementon 01-09-2022 Specific gravity (U) [Rel density] 1.030 1.002-1.030 [facility] Work Phone: Urobilinogen Auto test strip Ql (U)on 01-09-2022 Urobilinogen Ql (U) Normal mg/dl Normal [facility] Work Phone: Bordetella Pertussis PCR ([id number])Ordered By: Die Sinking Machine Operator on 03-27-2019 B. parapertussis DNA BUCK+probe Ql (Unsp spec) Negative Normal [facility] Work Phone: Comment on above: This test was develo ped and its performance characteristics determinedby [employer]. It has not been cleared or approved by theU.S. Food and Drug Administration. The FDA has determined that suchclearance or approval is not necessary. This test is used for clinicalpurposes. It should not be regarded as investigational or research. PATIENT NOT FASTINGP ERFORMED BY: [employer] [id number] B. pertussis DNA BUCK+probe Ql (Unsp spec) Negative Normal [facility] Work Phone: Comment on above: PATIENT NOT FASTINGP ERFORMED BY: [employer] [id number] CALCIFEDIOL ([id number])Ordered B y: Die Sinking Machine Operator on 09-20-2017 25-Hydroxyvitamin D2+25-Hydroxyvitamin D3 [Mass/Vol] 19.8 ng/mL Abnormal 30.0-100.0 [facility] Work Phone: Comment on above: Vitamin D deficiency has been defined by the [place] [employer] and an Endocrine Society practice guideline as alevel of serum 25-OH vitamin D less than 20 ng/mL (1,2).The Endocrine Society went on to further define vitamin Dinsufficiency as a level between 21 and 29 ng/mL (2).1. IOM ([place] of Medicine). 2010. Dietary reference intakes for calcium and D. Eng [place]: The National Academies Press.2. Yong MF, Unruly CHRISTIE, Kay ROBERTSON, et al. Evaluation, treatment, and prevention of vitamin D deficiency: an Endocrine Society clinical practice guideline. JCEM. 2010; 96(7):1911-30. PATIENT NOT FASTINGP ERFORMED BY: 500pxAlbert B. [facility] [id number] HGB A1C (80845)Ordered By: S ystem Floor Installation Mechanic on 09-20-2017 HbA1c (Bld) [Mass fraction] 5.8 % Abnormal 4.8-5.6 [facility] Work Phone: Comment on above: . Pre-diabetes: 5.7 - 6.4 Diabetes: >6.4 Glycemic control for adults with diabetes: <7.0 PATIENT NOT FASTINGP ERFORMED BY: [facility] [id number] TSH (THYROID STIMULATING HOR MAURICE) (80942)Ordered By: Die Sinking Machine Operator on 09-20-2017 TSH Qn 1.410 {uIU/mL} Normal 0.450-4.500 [facility] Internal Medicine Work Phone: Comment on above: PATIENT NOT FASTINGP ERFORMED BY: [facility] [id number] Renal function Panel (15558) Ordered By: Die Sinking Machine Operator on 06-19-2017 Albumin [Mass/Vol] 4.4 g/dL Normal 3.5-5.5 [facility] Internal Medicine Work Phone: Comment on above: PATIENT NOT FASTINGP ERFORMED BY: CB [facility] Kypfmz2804 Moss RoadDublin [place] [id number] Calcium [Mass/Vol] 9.3 mg/dL Normal 8.7-10.2 [facility] Internal Medicine Work Phone: Comment on above: PATIENT NOT FASTINGP ERFORMED BY: CB [facility] Jqfunp3081 Moss RoadDublin [place] [id number] Chloride [Moles/Vol] 103 mmol/L Normal 96-106 [facility] Internal Medicine Work Phone: Comment on above: PATIENT NOT FASTINGP ERFORMED BY: CB [facility] Ulfenp8153 [address] RoadDublin [place] [id number] CO2 [Moles/Vol] 22 mmol/L Normal 18-29 [facility] Internal Medicine Work Phone: Comment on above: PATIENT NOT FASTINGP ERFORMED BY: CB [facility] Yzbnpi1319 [address] RoadDublin [place] [id number] Creatinine [Mass/Vol] 0.54 mg/dL Abnormal 0.57-1.00 [facility] Internal Medicine Work Phone: Comment on above: PATIENT NOT FASTINGP ERFORMED BY: CB [facility] Cpgqbd9261 [address] RoadDublin [place] [id number] GFR/1.73 sq M predicted among blacks CKD-EPI (S/P/Bld) [Vol rate/Area] 134 mL/min/1.73 Normal [facility] Work Phone: Comment on above: PATIENT NOT FASTINGP ERFORMED BY: CB [facility] Abcsts7664 [address] RoadDublin [place] [id number] GFR/1.73 sq M predicted among non-blacks CKD-EPI (S/P/Bld) [Vol rate/Area] 116 mL/min/1.73 Normal [facility] Work Phone: Comment on above: PATIENT NOT FASTINGP ERFORMED BY: CB [facility] Ksexev5913 [address] RoadDublin [place] [id number] Glucose [Mass/Vol] 83 mg/dL Normal 65-99 [facility] Internal Medicine Work Phone: Comment on above: PATIENT NOT FASTINGP ERFORMED BY: RASHEED LabCokate SmithZevmxn3367 [address] RoadNovant Health Charlotte Orthopa[facility] Hospitalin [place] [id number] Phosphate [Mass/Vol] 3.1 mg/dL Normal 2.5-4.5 [facility] Internal Medicine Work Phone: Comment on above: PATIENT NOT FASTINGP ERFORMED BY: RASHEED [facility] Iiqntw6698 [address] [facility]in [place] [id number] Potassium [Moles/Vol] 4.3 mmol/L Normal 3.5-5.2 [facility] Internal Medicine Work Phone: Comment on above: PATIENT NOT FASTINGP ERFORMED BY: RASHEED LabCo Obrbgx8491 [address] RoadNovant Health Charlotte [facility] Hospitalin [place] [id number] Sodium [Moles/Vol] 141 mmol/L Normal 134-144 [facility] Internal Medicine Work Phone: Comment on above: PATIENT NOT FASTINGP ERFORMED BY: RASHEED [facility] Hrqpha3316 [address] [facility] [id number] Urea nitrogen [Mass/Vol] 20 mg/dL Normal 6-24 [facility] Work Phone: Comment on above: PATIENT NOT FASTINGP ERFORMED BY: RASHEED [facility] Tlpccu5777 [address] [facility] [id number] Urea nitrogen/Creatinine [Mass ratio] 37 mg/mg Abnormal 9-23 [facility] Work Phone: Comment on above: PATIENT NOT FASTINGP ERFORMED BY: RASHEED [facility] Zevdrt5760 [address] [facility] [place] [id number] URINE KIMBERLY CULTURE-AL COL C OUNT (82698)Ordered By: Die Sinking Machine Operator on 06-19-2017 Bacteria identified Cx Nom (U) Escherichia coli Abnormal [facility] Work Phone: Comment on above: Greater than 100,000 colony forming units per mL PATIENT NOT FASTINGP ERFORMED BY: RASHEED [facility] Rydsqs3794 [address] [facility] [id number] Information: SRC: Bacteria identified Cx Nom (U) Final report Abnormal [facility] Work Phone: Comment on above: PATIENT NOT FASTINGP ERFORMED BY: RASHEED Fish Nature Ogixqy4476 MySongToYouCone Health Moses Cone Hospital [id number] Information: SRC: Other Antibiotic [Susc] MIHEAD Normal [facility] Work Phone: Comment on above: S = Susceptible; I = Intermediate; R = Resistant P = Positive; N = Negative MICS are expressed in micrograms per mL Antibiotic RSLT#1 RSLT#2 RSLT#3 RSLT#4Amoxicillin/Clavulanic Acid SAmpicillin SCefepime SCeftriaxone SCefuroxime SCephalothin RCiprofloxacin SErtapenem SGentamicin SImipenem SLevofloxacin SNitrofurantoin SPiperacillin STetracycline STobramycin STrimethoprim/Sulfa S PATIENT NOT FASTINGP ERFORMED BY: RASHEED Fish Nature Sykwgb1300 MySongToYouCone Health Moses Cone Hospital [id number] Information: SRC: Urinalysis, Office (56190)Or dered By: Jojo James on 06-19-2017 Bilirubin Ql (U) Small Normal Comprehe nsive Internal Medicine Work Phone: Glucose Test strip (U) [Mass/Vol] Negative Normal [facility] Work Phone: Hemoglobin Ql (U) Non Hemolyzed Moderate Normal [facility] Work Phone: Ketones Ql (U) Moderate Normal Comprehens esme Internal Medicine Work Phone: Leukocyte esterase Test strip Ql (U) Negative Normal [facility] Work Phone: Nitrite Ql (U) Positive Normal Comprehens esme Internal Medicine Work Phone: pH (U) 6.0 [pH] Normal [facility] Work Phone: Protein Ql (U) 30 mg/dL Normal Comprehens esme Internal Medicine Work Phone: Specific gravity (U) [Rel density] 1.030 1 Abnormal [facility] Work Phone: Urobilinogen (24H U) [Mass/Time] Normal Normal [facility] Work Phone: PPD (92135)Ordered By: Abi James on 10-14-2016 PPD (93149) Negative Normal [facility] Work Phone: CREATININE CLEARANCE (75712) Ordered By: Die Sinking Machine Operator on 11-30-2015 Creatinine (24H U) [Mass/Time] 893.0 {mg/24_hr} Normal 800.0-1800. 0 [facility] Work Phone: Comment on above: PATIENT NOT FASTINGP ERFORMED BY: RASHEED Smith[address] QuixhopCone Health Moses C[facility] Hospital [id number] Information: SRC:PEBBLES [id number] STAR T 11/29/15@830AM FINISH @645A Creatinine (U) [Mass/Vol] 89.3 mg/dL Normal 15.0-278.0 [facility] Work Phone: Comment on above: PATIENT NOT FASTINGP ERFORMED BY: RASHEED Smith[address] QuixhopCone Health Moses [facility] Hospital [id number] Information: SRC:PEBBLES [id number] STAR T 11/29/15@830AM FINISH @645A Creatinine [Mass/Vol] 0.73 mg/dL Normal 0.57-1.00 Com prehensive Internal Medicine Work Phone: Comment on above: PATIENT NOT FASTINGP ERFORMED BY: RASHEED OchoaCokate SmithEizdtz7434 [address] QuixhopCone Health Moses C[facility] Hospital [id number] Information: SRC:PEBBLES [id number] STAR T 11/29/15@830AM FINISH @645A Creatinine renal clearance (24H U+S/P) [Vol/Time] 85 mL/min Abnormal 88-128 [facility] Work Phone: Comment on above: The above range is b ased on 1.73 square meter average body surfacearea. PATIENT NOT FASTINGP ERFORMED BY: RASHEED Smith6370 [facility] [id number] Information: SRC:UR [id number] STAR T 11/29/15@830AM FINISH @645A GFR/1.73 sq M predicted among blacks CKD-EPI (S/P/Bld) [Vol rate/Area] 118 mL/min/1.73 Normal [facility] Work Phone: Comment on above: PATIENT NOT FASTINGP ERFORMED BY: RASHEED Castanedalin6370 [facility] [id number] Information: SRC:UR [id number] STAR T 11/29/15@830AM FINISH @645A GFR/1.73 sq M predicted among non-blacks CKD-EPI (S/P/Bld) [Vol rate/Area] 103 mL/min/1.73 Normal [facility] Work Phone: Comment on above: PATIENT NOT FASTINGP ERFORMED BY: RASHEED Castanedalin6370 [facility] [id number] Information: SRC:UR [id number] STAR T 11/29/15@830AM FINISH @645A Total Protein,24 Hour Urine (01715)Ordered By: Die Sinking Machine Operator on 11-30-2015 Protein (24H U) [Mass/Time] 81.0 {mg/24_hr} Normal 30.0-150.0 [facility] Work Phone: Comment on above: PATIENT NOT FASTINGP ERFORMED BY: RASHEED DonInnovative Spinal Technologies Gfiolr6986 [facility] [id number] Protein (U) [Mass/Vol] 8.1 mg/dL Normal 0.0-15.0 [facility] Work Phone: Comment on above: PATIENT NOT FASTINGP ERFORMED BY: RASHEED Virtual CommandAudrain Medical Center Gxoqqk2291 [facility] [id number] URINE KIMBERLY CULTURE (AL COL COUNT) (38770)Ordered By: Die Sinking Machine Operator on 11-11-2014 Bacteria identified Cx Nom (U) Final report Abnormal [facility] Work Phone: Comment on above: PATIENT NOT FASTINGP ERFORMED BY: RASHEED OchoaAudrain Medical Center Kjhckv7369 [facility] [id number] Information: SRC:UR [id number] Bacteria identified Cx Nom (U) Escherichia coli Abnormal [facility] Work Phone: Comment on above: 10,000-25,000 colony forming units per mL PATIENT NOT FASTINGP ERFORMED BY: DonHenry Ford Hospital6370 [facility] [id number] Information: SRC:UR [id number] Bacteria identified Cx Nom (U) Enterococcus faecalis Abnormal Comprehens esme Internal Medicine Work Phone: Comment on above: 10,000-25,000 colony forming units per mLNote: this isolate is vancomycin-susceptible.This information is provided for epidemiologic purposesonly: vancomycin is not among the antibioticsrecommended for therapy of urinary tract infectionscaused by Enterococcus.For Enterococcus species, cephalosporins, aminoglycosides (except forhigh-level resistance screening), clindamycin, and trimethoprim-sulfamethoxazole are not effective clinically. Fluoroquinolones areused primarily for treating urinary tract infections. (CLSI, F291-Z77,2009) PATIENT NOT FASTINGP ERFORMED BY: RASHEED OchoaAudrain Medical Center Fcncbk6988 [facility] [id number] Information: SRC:UR Q40141 Other Antibiotic [Susc] MIHEAD Normal [facility] Work Phone: Comment on above: S = Susceptibl e; I = Intermediate; R = Resistant P = Positive; N = Negative MICS are expressed in micrograms per mL Antibiotic RSLT#1 RSLT#2 RSLT#3 RSLT#4Amoxicillin/Clavulanic Acid SAmpicillin SCefepime SCeftriaxone SCefuroxime SCephalothin SCiprofloxacin S SErtapenem SGentamicin SImipenem SLevofloxacin S SNitrofurantoin S SPenicillin SPiperacillin STetracycline S RTobramycin STrimethoprim/Sulfa SVancomycin S PATIENT NOT FASTINGP ERFORMED BY: DonAudrain Medical Center Medihd1211 [facility] [id number] Information: SRC:[facility] [id number] Metabolic Panel, Comprehensi ve (56476)Ordered By: Die Sinking Machine Operator on 06-17-2014 Albumin [Mass/Vol] 4.1 g/dL Normal 3.5-5.5 [facility] Internal Medicine Work Phone: Comment on above: PATIENT NOT FASTINGP ERFORMED BY: CB [facility] Coqmyn6067 [facility] [id number] Information: [id number],[id number] Albumin/Globulin [Mass ratio] 1.6 {ratio} Normal 1.1-2.5 [facility] Work Phone: Comment on above: PATIENT NOT FASTINGP ERFORMED BY: CB [facility] Ppriog1842 [facility] [id number] Information: [id number] ALP [Catalytic activity/Vol] 86 [iU]/L Normal 39-117 [facility] Work Phone: Comment on above: PATIENT NOT FASTINGP ERFORMED BY: CB [facility] Iygdpk3558 [address] [facility] [id number] Information: [id number],[id number] ALT [Catalytic activity/Vol] 20 [iU]/L Normal 0-32 [facility] Work Phone: Comment on above: PATIENT NOT FASTINGP ERFORMED BY: CB [facility] Nufmnt6800 [address] [facility] [id number] Information: 587243,[id number] AST [Catalytic activity/Vol] 16 [iU]/L Normal 0-40 [facility] Work Phone: Comment on above: PATIENT NOT FASTINGP ERFORMED BY: CB [facility] Yvuddx6031 [facility] [id number] Information: [id number],[id number] Bilirubin [Mass/Vol] 0.2 mg/dL Normal 0.0-1.2 [facility] Internal Medicine Work Phone: Comment on above: PATIENT NOT FASTINGP ERFORMED BY: CB [facility] Ikjcgx6379 [facility] [id number] Information: [id number],[id number] Calcium [Mass/Vol] 9.1 mg/dL Normal 8.7-10.2 [facility] Internal Medicine Work Phone: Comment on above: PATIENT NOT FASTINGP ERFORMED BY: [facility] Ekxxuv4225 [facility] [id number] Information: 923876,[id number] Chloride [Moles/Vol] 101 mmol/L Normal 97-108 [facility] Work Phone: Comment on above: PATIENT NOT FASTINGP ERFORMED BY: [facility] Vtztjc2365 [facility] [id number] Information: 568779,Q41618 CO2 [Moles/Vol] 22 mmol/L Normal 18-29 [facility] Internal Medicine Work Phone: Comment on above: PATIENT NOT FASTINGP ERFORMED BY: [facility] Sccnbl5055 [facility] [id number] Information: 185427,Y02854 Creatinine [Mass/Vol] 0.55 mg/dL Abnormal 0.57-1.00 [facility] Internal Medicine Work Phone: Comment on above: PATIENT NOT FASTINGP ERFORMED BY: [facility] Chlmfc8165 [facility] [id number] Information: 746125,[id number] GFR/1.73 sq M predicted among blacks CKD-EPI (S/P/Bld) [Vol rate/Area] 136 mL/min/1.73 Normal [facility] Work Phone: Comment on above: PATIENT NOT FASTINGP ERFORMED BY: CB [facility] Qvfdja6763 [facility] [id number] Information: 505582,Y90684 GFR/1.73 sq M predicted among non-blacks CKD-EPI (S/P/Bld) [Vol rate/Area] 118 mL/min/1.73 Normal [facility] Work Phone: Comment on above: PATIENT NOT FASTINGP ERFORMED BY: RASHEED Emeterio Abtylx0163 [facility] [id number] Information: 087994,[id number] Globulin (S) [Mass/Vol] 2.5 g/dL Normal 1.5-4.5 [facility] Internal Medicine Work Phone: Comment on above: PATIENT NOT FASTINGP ERFORMED BY: RASHEED Storm Iunwpp6942 [facility] [id number] Information: 893501,[id number] Glucose [Mass/Vol] 84 mg/dL Normal 65-99 [facility] Internal Medicine Work Phone: Comment on above: PATIENT NOT FASTINGP ERFORMED BY: RASHEED Emeterio Ngmayl2659 [facility] [id number] Information: 739986,[id number] Potassium [Moles/Vol] 4.4 mmol/L Normal 3.5-5.2 [facility] Internal Medicine Work Phone: Comment on above: PATIENT NOT FASTINGP ERFORMED BY: RASHEED DonAudrain Medical Center Tnlfui1509 [facility] [id number] Information: [id number],H78156 Protein [Mass/Vol] 6.6 g/dL Normal 6.0-8.5 [facility] Internal Medicine Work Phone: Comment on above: PATIENT NOT FASTINGP ERFORMED BY: RASHEED DonAudrain Medical Center Oaqytw0747 [facility] [id number] Information: 806287,I52352 Sodium [Moles/Vol] 138 mmol/L Normal 134-144 [facility] Internal Medicine Work Phone: Comment on above: PATIENT NOT FASTINGP ERFORMED BY: RASHEED LabAudrain Medical Center Dgswsa5631 [facility] [id number] Information: 902328,M99805 Urea nitrogen [Mass/Vol] 13 mg/dL Normal 6-24 [facility] Internal Medicine Work Phone: Comment on above: PATIENT NOT FASTINGP ERFORMED BY: RASHEED OchoaHenry Ford Hospital6370 [facility] [id number] Information: 895509,M08706 Urea nitrogen/Creatinine [Mass ratio] 24 mg/mg Abnormal 9- [facility] Work Phone: Comment on above: PATIENT NOT FASTINGP ERFORMED BY: RASHEED Storm Nagwkd5080 [facility] [id number] Information: 180808,F24384 CBC, PLATELETS & AUT DIFF (8 5052)Ordered By: Die Sinking Machine Operator on 10-15-2013 Basophils (Bld) [#/Vol] 0.0 {x10E3/uL} Normal 0.0-0.2 [facility] Work Phone: Comment on above: PATIENT NOT FASTINGP ERFORMED BY: RASHEED OchoaAudrain Medical Center Injxdh3086 [facility] [id number] BY: OBosideng LabActiviomics Jtnr9717 [facility] [place] [id number] Information: 082173,L53678 Basophils/100 WBC (Bld) 0 % Normal 0-3 [facility] Work Phone: Comment on above: PATIENT NOT FASTINGP ERFORMED BY: RASHEED Storm Zhmaxq3863 [facility] [id number] BY: O_ LabInnovative Spinal Technologiesrp [employer] Sbpo4723 [facility] [place] [id number] Information: 882884,[id number] Eosinophils (Bld) [#/Vol] 0.2 {x10E3/uL} Normal 0.0-0.4 [facility] Work Phone: Comment on above: PATIENT NOT FASTINGP ERFORMED BY: RASHEED [place] 8986070 [facility] [id number] BY: O_ LabInnovative Spinal Technologiesrp Protem Hpdk9451 [facility] [place] [id number] Information: 212989,[id number] Eosinophils/100 WBC (Bld) 2 % Normal 0-5 [facility] Work Phone: Comment on above: PATIENT NOT FASTINGP ERFORMED BY: RASHEED [facility] Vxuxdw9116 [facility] [id number] BY: O_ [facility] [address] [id number] Information: 916850,Y28436 Erythrocyte distribution width (RBC) [Ratio] 12.8 % Normal 12.3-15.4 [facility] Work Phone: Comment on above: PATIENT NOT FASTINGP ERFORMED BY: RASHEED [facility] Cehzdb3468 [facility] [id number] BY: O_ LabInnovative Spinal Technologies[address] [id number] Information: 377358,[id number] Hematocrit (Bld) [Volume fraction] 45.1 % Normal 34.0-46.6 [facility] Work Phone: Comment on above: PATIENT NOT FASTINGP ERFORMED BY: RASHEED LabCokate CastanedaTlduae0036 [facility] [id number] BY: O LabInnovative Spinal Technologies[address] [id number] Information: 453583,[id number] Hemoglobin (Bld) [Mass/Vol] 14.7 g/dL Normal 11.1-15.9 [facility] Work Phone: Comment on above: PATIENT NOT FASTINGP ERFORMED BY: RASHEED LabCoMaria Ville 3554070 [facility] [id number] BY: O Lab[address] [id number] Information: [id number],[id number] Immature granulocytes (Bld) [#/Vol] 0.0 {x10E3/uL} Normal 0.0-0.1 [facility] Work Phone: Comment on above: PATIENT NOT FASTINGP ERFORMED BY: CB [facility] Xihliz8589 [facility] [id number] BY: O_ [facility] Protem Vcnh5691 [facility] [place] [id number] Information: [id number] Immature granulocytes/100 WBC (Bld) 0 % Normal 0-2 [facility] Work Phone: Comment on above: PATIENT NOT FASTINGP ERFORMED BY: RASHEED DonMarybel CastanedaPjfzuw6509 [facility] [id number] BY: O_ LabCoThe [facility] Zbap1089 [facility] [id number] Information: 224195,[id number] Lymphocytes (Bld) [#/Vol] 3.3 {x10E3/uL} Abnormal 0.7-3.1 [facility] Work Phone: Comment on above: PATIENT NOT FASTINGP ERFORMED BY: RASHEED Castanedalin6370 [facility] [id number] BY: O_ LabInnovative Spinal TechnologiesThe [facility] S[address] [place] [address] [place] [id number] Information: 661071,[id number] Lymphocytes/100 WBC (Bld) 34 % Normal 14-46 [facility] Work Phone: Comment on above: PATIENT NOT FASTINGP ERFORMED BY: RASHEED Smith6370 [facility] [id number] BY: O_ LabChan [facility] Hcax1280 [facility] [id number] Information: [id number] MCH (RBC) [Entitic mass] 29.8 pg Normal 26.6-33.0 [facility] Work Phone: Comment on above: PATIENT NOT FASTINGP ERFORMED BY: RASHEED LabCokate CastanedaPlrxih7696 [facility] [id number] BY: O_ LabChan [facility] Uyqx1523 [facility] [id number] Information: 178544,[id number] MCHC (RBC) [Mass/Vol] 32.6 g/dL Normal 31.5-35.7 [facility] Internal Medicine Work Phone: Comment on above: PATIENT NOT FASTINGP ERFORMED BY: RASHEED DonMarybel CastanedaEmxkkn0783 [facility] [id number] BY: O LabChan [facility] Hshf8[address] [place] [address] [id number] Information: 407786,[id number] MCV (RBC) [Entitic vol] 92 fL Normal 79-97 [facility] Work Phone: Comment on above: PATIENT NOT FASTINGP ERFORMED BY: RASHEED Storm Zgwqfb6194 [facility] [id number] BY: O LabInnovative Spinal TechnologiesThe [facility] Lbum7[address] [place] [address] [id number] Information: 119554,[id number] Monocytes (Bld) [#/Vol] 0.6 {x10E3/uL} Normal 0.1-0.9 [facility] Internal Medicine Work Phone: Comment on above: PATIENT NOT FASTINGP ERFORMED BY: RASHEED Storm Ebdedd3388 [facility] [id number] BY: O LabChan [facility] Mqol7308[address] [place] [address] [id number] Information: 753394,[id number] Monocytes/100 WBC (Bld) 7 % Normal 4-12 [facility] Work Phone: Comment on above: PATIENT NOT FASTINGP ERFORMED BY: RASHEED [place] 8986070 [facility] [id number] BY: O LabChan [facility] Gzed7334[address] [place] [address] [id number] Information: 240393,[id number] Neutrophils (Bld) [#/Vol] 5.5 {x10E3/uL} Normal 1.4-7.0 [facility] Work Phone: Comment on above: PATIENT NOT FASTINGP ERFORMED BY: RASHEED Smith6370 [facility] [id number] BY: O_ [facility] Protem Racf98[address] [place] [address] [id number] Information: 305140,[id number] Neutrophils/100 WBC (Bld) 57 % Normal 40-74 [facility] Work Phone: Comment on above: PATIENT NOT FASTINGP ERFORMED BY: RASHEED Castanedalin6370 [facility] [id number] BY: O_ [facility] Protem Pcep[address] [place] [address] [id number] Information: 943692,[id number] Platelets (Bld) [#/Vol] 315 {x10E3/uL} Normal 155-379 [facility] Work Phone: Comment on above: PATIENT NOT FASTINGP ERFORMED BY: RASHEED Smith6370 [facility] [id number] BY: O_ [facility] Protem Yxpu[address] [place] [address] [id number] Information: [id number] RBC (Bld) [#/Vol] 4.93 {x10E6/uL} Normal 3.77-5.28 [facility] Internal Medicine Work Phone: Comment on above: PATIENT NOT FASTINGP ERFORMED BY: RASHEED Castanedalin6370 [facility] [id number] BY: O_ [facility] Protem Uuip[address] [place] [address] [id number] Information: [id number],[id number] WBC (Bld) [#/Vol] 9.7 {x10E3/uL} Normal 3.4-10.8 [facility] Internal Medicine Work Phone: Comment on above: PATIENT NOT FASTINGP ERFORMED BY: RASHEED [facility] Fvnbmn0459 [place] [id number] BY: O_ [facility] Protem Zhix1861 [facility] [place] [id number] Information: 110088,L93553 METABOLIC PANEL, COMPREHENSI VE (58050)Ordered By: Die Sinking Machine Operator on 10-15-2013 Albumin [Mass/Vol] 4.2 g/dL Normal 3.5-5.5 [facility] Internal Medicine Work Phone: Comment on above: PATIENT NOT FASTINGP ERFORMED BY: RASHEED [facility] Fvtljh9523 [facility] [place] [id number] BY: O [facility] Fpnw[address] [place] [address] [place] [id number] Albumin/Globulin [Mass ratio] 1.6 {ratio} Normal 1.1-2.5 [facility] Work Phone: Comment on above: PATIENT NOT FASTINGP ERFORMED BY: RASHEED [facility] Nkaocu1187 [facility] [place] [id number] BY: O [facility] Szcf67[address] [place] [address] [place] [id number] ALP [Catalytic activity/Vol] 74 [iU]/L Normal 39-117 [facility] Work Phone: Comment on above: PATIENT NOT FASTINGP ERFORMED BY: RASHEED [facility] Qduvpa1345 [facility] [place] [id number] BY: O_ [facility] Cwve[address] [place] [address] [place] [id number] ALT [Catalytic activity/Vol] 16 [iU]/L Normal 0-32 [facility] Work Phone: Comment on above: PATIENT NOT FASTINGP ERFORMED BY: CB [facility] Exvsff5764 [facility] [place] [id number] BY: O [facility] Ziik37[address] [place] [address] [place] [id number] AST [Catalytic activity/Vol] 12 [iU]/L Normal 0-40 [facility] Work Phone: Comment on above: PATIENT NOT FASTINGP ERFORMED BY: RASHEED [facility] Qikseq4235 [address] RoadBuff[place] [id number] BY: O_ [facility] Protem Vabb0992 [facility] [place] [id number] Bilirubin [Mass/Vol] 0.3 mg/dL Normal 0.0-1.2 [facility] Work Phone: Comment on above: PATIENT NOT FASTINGP ERFORMED BY: RASHEED [facility] Forrpv5046 [address] RoadBuff[place] [id number] BY: O_ [facility] Ntgv4928 [facility] [place] [id number] Calcium [Mass/Vol] 9.2 mg/dL Normal 8.7-10.2 [facility] Internal Medicine Work Phone: Comment on above: PATIENT NOT FASTINGP ERFORMED BY: RASHEED [facility] Ychfgd8936 [facility] [place] [id number] BY: O_ LabInnovative Spinal TechnologiesThe [facility] Zofe4470 [facility] [place] [id number] Chloride [Moles/Vol] 105 mmol/L Normal 97-108 [facility] Work Phone: Comment on above: PATIENT NOT FASTINGP ERFORMED BY: RASHEED [facility] Sdbmda9383 [facility] [place] [id number] BY: O_ [facility] Protem Hxbx2818 [facility] [place] [id number] CO2 [Moles/Vol] 22 mmol/L Normal 19-28 [facility] Internal Medicine Work Phone: Comment on above: PATIENT NOT FASTINGP ERFORMED BY: RASHEED [facility] Xfizyf4145 [facility] [place] [id number] BY: O_ [employer] Protem Qdmk5577 [facility] [place] [id number] Creatinine [Mass/Vol] 0.64 mg/dL Normal 0.57-1.[address] [facility] Work Phone: Comment on above: PATIENT NOT FASTINGP ERFORMED BY: RASHEED Smith6370 [facility] [id number] BY: O_ [facility]CoThe [facility] Vpgu01[address] [place] [address] [id number] GFR/1.73 sq M predicted among blacks CKD-EPI (S/P/Bld) [Vol rate/Area] 130 mL/min/1.73 Normal [facility] Work Phone: Comment on above: PATIENT NOT FASTINGP ERFORMED BY: RASHEED Smith6370 [facility] [id number] BY: O_ LabInnovative Spinal TechnologiesThe [facility] Ggef2285[address] [place] [address] [id number] GFR/1.73 sq M predicted among non-blacks CKD-EPI (S/P/Bld) [Vol rate/Area] 113 mL/min/1.73 Normal [facility] Work Phone: Comment on above: PATIENT NOT FASTINGP ERFORMED BY: RASHEED Smith6370 [facility] [id number] BY: O_ LabInnovative Spinal TechnologiesThe [facility] Yyal0130[address] [place] [address] [id number] Globulin (S) [Mass/Vol] 2.7 g/dL Normal 1.5-4.5 [facility] Work Phone: Comment on above: PATIENT NOT FASTINGP ERFORMED BY: RASHEED [facility] Zeoorh9142 [facility] [id number] BY: O_ LabIn[employer]ative Spinal Technologies[address] [id number] Glucose [Mass/Vol] 77 mg/dL Normal 65-99 [facility] Internal Medicine Work Phone: Comment on above: PATIENT NOT FASTINGP ERFORMED BY: RASHEED Storm Fqivjd0228 [facility] [id number] BY: O_ [facility] Protem Nfqk3838 [facility] [place] [id number] Potassium [Moles/Vol] 4.4 mmol/L Normal 3.5-5.2 [facility] Internal Medicine Work Phone: Comment on above: PATIENT NOT FASTINGP ERFORMED BY: RASHEED LabMarybel Smith6370 [facility] [id number] BY: O_ [facility] Jkko[address] [place] [address] [place] [id number] Protein [Mass/Vol] 6.9 g/dL Normal 6.0-8.5 [facility] Internal Medicine Work Phone: Comment on above: PATIENT NOT FASTINGP ERFORMED BY: RASHEED Smith6370 [facility] [id number] BY: O_ LabInnovative Spinal TechnologiesThe [facility] Pski87[address] [place] [address] [place] [id number] Sodium [Moles/Vol] 138 mmol/L Normal 134-144 [facility] Internal Medicine Work Phone: Comment on above: PATIENT NOT FASTINGP ERFORMED BY: RASHEED Smtih6370 [facility] [id number] BY: O_ LabInnovative Spinal TechnologiesThe [facility] Fvyt45[address] [place] [address] [place] [id number] Urea nitrogen [Mass/Vol] 16 mg/dL Normal 6-20 [facility] Internal Medicine Work Phone: Comment on above: PATIENT NOT FASTINGP ERFORMED BY: RASHEED LabCokate CastanedaIcjcwr8051 [facility] [id number] BY: O_ LabCoThe [facility] Bppq2359 [facility] [place] [id number] Urea nitrogen/Creatinine [Mass ratio] 25 mg/mg Abnormal 8-20 [facility] Work Phone: Comment on above: PATIENT NOT FASTINGP ERFORMED BY: RASHEED OchoaCo Qcymje6297 [facility] [id number] BY: O_ [facility]tem Rgux2048 [facility] [id number] Quantiferron gold test (8648 0)Ordered By: Die Sinking Machine Operator on 10-15-2013 Quantiferron gold test (14522) QINT Normal [facility] Work Phone: Comment on above: Incubated, testing t o follow. PATIENT NOT FASTINGP ERFORMED BY: LabCo Dzujhd9607 [facility] [id number] BY: O_ [facility]tem Vyfo9539 [facility] [id number] CALCIFEDIOL (37277)Ordered B y: Die Sinking Machine Operator on 07-23-2013 25-Hydroxyvitamin D2+25-Hydroxyvitamin D3 [Mass/Vol] 18.3 ng/mL Abnormal 30.0-100.0 [facility] Work Phone: Comment on above: Vitamin D deficiency has been defined by the [place] of[place] and an Endocrine Society practice guideline as alevel of serum 25-OH vitamin D less than 20 ng/mL (1,2).The Endocrine Society went on to further define vitamin Dinsufficiency as a level between 21 and 29 ng/mL (2).1. IOM ([place] of [employer]). 2010. Dietary reference intakes for calcium and D. Eng [place]: The National Academies Press.2. Yong MF, Unruly NC, Kay ROBERTSON, et al. Evaluation, treatment, and prevention of vitamin D deficiency: an Endocrine Society clinical practice guideline. JCEM. 2010; 96(7):1911-30. PATIENT NOT FASTINGP ERFORMED BY: Lab[facility] Pvyzxi7615 [facility] [id number] CBC with manual diff (45173) Ordered By: Die Sinking Machine Operator on 07-23-2013 Basophils (Bld) [#/Vol] 0.0 {x10E3/uL} Normal 0.0-0.2 [facility] Work Phone: Comment on above: PATIENT NOT FASTINGP ERFORMED BY: RASHEED LabCoKessler Institute for RehabilitationOtjgry1219 [facility] [id number] Information: ADD [id number] AND DRAW FEE 99 6660 Basophils/100 WBC (Bld) 0 % Normal 0-3 [facility] Work Phone: Comment on above: PATIENT NOT FASTINGP ERFORMED BY: LabCoMaria [place] 3554070 [facility] [id number] Information: ADD [id number] AND DRAW FEE 99 6660 Eosinophils (Bld) [#/Vol] 0.0 {x10E3/uL} Normal 0.0-0.4 [facility] Work Phone: Comment on above: PATIENT NOT FASTINGP ERFORMED BY: LabCoKessler Institute for RehabilitationVifeqa3751 [facility] [id number] Information: ADD P16800 AND DRAW FEE 99 6660 Eosinophils/100 WBC (Bld) 0 % Normal 0-5 [facility] Work Phone: Comment on above: PATIENT NOT FASTINGP ERFORMED BY: LabCo[address] [id number] Information: ADD [id number] AND DRAW FEE 99 6660 Erythrocyte distribution width (RBC) [Ratio] 13.0 % Normal 12.3-15.4 [facility] Work Phone: Comment on above: PATIENT NOT FASTINGP ERFORMED BY: LabCo[address] [id number] Information: ADD F38287 AND DRAW FEE 99 6660 Hematocrit (Bld) [Volume fraction] 43.5 % Normal 34.0-46.6 [facility] Work Phone: Comment on above: PATIENT NOT FASTINGP ERFORMED BY: LabCoMaria [place] 3554070 [facility] [id number] Information: ADD Q49582 AND DRAW FEE 99 6660 Hemoglobin (Bld) [Mass/Vol] 14.1 g/dL Normal 11.1-15.9 [facility] Work Phone: Comment on above: PATIENT NOT FASTINGP ERFORMED BY: RASHEED Castanedalin6370 [facility] [id number] Information: ADD U63471 AND DRAW FEE 99 6660 Immature granulocytes (Bld) [#/Vol] 0.0 {x10E3/uL} Normal 0.0-0.1 [facility] Work Phone: Comment on above: PATIENT NOT FASTINGP ERFORMED BY: RASHEED Storm Pwzmkd[address] [id number] Information: ADD W33930 AND DRAW FEE 99 6660 Immature granulocytes/100 WBC (Bld) 0 % Normal 0-2 [facility] Work Phone: Comment on above: PATIENT NOT FASTINGP ERFORMED BY: RASHEED Castaneda[address] [id number] Information: ADD Q13122 AND DRAW FEE 99 6660 Lymphocytes (Bld) [#/Vol] 1.6 {x10E3/uL} Normal 0.7-3.1 [facility] Work Phone: Comment on above: PATIENT NOT FASTINGP ERFORMED BY: RASHEED Storm[address] [id number] Information: ADD L60321 AND DRAW FEE 99 6660 Lymphocytes/100 WBC (Bld) 15 % Normal 14-46 [facility] Work Phone: Comment on above: PATIENT NOT FASTINGP ERFORMED BY: RASHEED Ochoa[address] [id number] Information: ADD [id number] AND DRAW FEE 99 6660 MCH (RBC) [Entitic mass] 30.0 pg Normal 26.6-33.0 [facility] Work Phone: Comment on above: PATIENT NOT FASTINGP ERFORMED BY: RASHEED Storm Aglmeg1420 [facility] [id number] Information: ADD L74789 AND DRAW FEE 99 6660 MCHC (RBC) [Mass/Vol] 32.4 g/dL Normal 31.5-35.7 [facility] prehensive Internal Medicine Work Phone: Comment on above: PATIENT NOT FASTINGP ERFORMED BY: RASHEED Smith6370 [facility] [id number] Information: ADD F04915 AND DRAW FEE 99 6660 MCV (RBC) [Entitic vol] 93 fL Normal 79-97 [facility] Work Phone: Comment on above: PATIENT NOT FASTINGP ERFORMED BY: RASHEED Smith6370 [facility] [id number] Information: ADD Q81917 AND DRAW FEE 99 6660 Monocytes (Bld) [#/Vol] 0.5 {x10E3/uL} Normal 0.1-0.9 [facility] Work Phone: Comment on above: PATIENT NOT FASTINGP ERFORMED BY: RASHEED Castanedalin6370 [facility] [id number] Information: ADD [id number] AND DRAW FEE 99 6660 Monocytes/100 WBC (Bld) 5 % Normal 4-12 [facility] Work Phone: Comment on above: PATIENT NOT FASTINGP ERFORMED BY: RASHEED Castanedalin6370 [facility] [id number] Information: ADD L65398 AND DRAW FEE 99 6660 Neutrophils (Bld) [#/Vol] 8.4 {x10E3/uL} Abnormal 1.4-7.0 [facility] Work Phone: Comment on above: PATIENT NOT FASTINGP ERFORMED BY: RASHEED Castanedalin6370 [facility] [id number] Information: ADD S33191 AND DRAW FEE 99 6660 Neutrophils/100 WBC (Bld) 80 % Abnormal 40-74 [facility] Work Phone: Comment on above: PATIENT NOT FASTINGP ERFORMED BY: RASHEED Castanedalin6370 [facility] [id number] Information: ADD W73809 AND DRAW FEE 99 6660 Platelets (Bld) [#/Vol] 291 {x10E3/uL} Normal 155-379 [facility] Work Phone: Comment on above: PATIENT NOT FASTINGP ERFORMED BY: RASHEED [facility] Tejtgy3342 [address] [facility] [place] [id number] Information: ADD G02585 AND DRAW FEE 99 6660 RBC (Bld) [#/Vol] 4.70 {x10E6/uL} Normal 3.77-5.28 [facility] Internal Medicine Work Phone: Comment on above: PATIENT NOT FASTINGP ERFORMED BY: CB [facility] Ukmkwz2671 [facility] RoadNov[facility]in [place] [id number] Information: ADD Q87099 AND DRAW FEE 99 6660 WBC (Bld) [#/Vol] 10.5 {x10E3/uL} Normal 3.4-10.8 [facility] Internal Medicine Work Phone: Comment on above: PATIENT NOT FASTINGP ERFORMED BY: CB [facility] Tuefja3767 [facility] [id number] Information: ADD Q74781 AND DRAW FEE 99 6660 METABOLIC PANEL, COMPREHENSI VE (57940)Ordered By: Die Sinking Machine Operator on 07-23-2013 Albumin [Mass/Vol] 4.4 g/dL Normal 3.5-5.5 [facility] Internal Medicine Work Phone: Comment on above: PATIENT NOT FASTINGP ERFORMED BY: CB [facility] Tssteo1175 [facility] [id number] Albumin/Globulin [Mass ratio] 1.8 {ratio} Normal 1.1-2.5 [facility] Internal Medicine Work Phone: Comment on above: PATIENT NOT FASTINGP ERFORMED BY: CB [facility] Nurupi1951 [place] [facility] [place] [id number] ALP [Catalytic activity/Vol] 86 [iU]/L Normal 42-107 [facility] Internal Medicine Work Phone: Comment on above: Effective July 29, 2013 the reference interval for Alkaline Phosphatase, S will be changing to: Age Male Female 0 - 1 day 45 - 111 45 - 111 2 - 5 days 46 - 119 46 - 119 6 - 10 days 48 - 229 48 - 229 11 - 30 days 59 - 414 59 - 414 1 - 6 months 91 - 445 91 - 445 7 - 12 months 124 - 341 124 - 341 1 - 3 years 130 - 317 130 - 317 4 - 6 years 133 - 309 133 - 309 7 - 12 years 134 - 349 134 - 349 13 years 143 - 396 68 - 209 14 years 107 - 340 62 - 149 15 years 84 - 254 54 - 121 16 years 71 - 186 49 - 108 17 years 61 - 146 45 - 101 18 years 56 - 127 43 - 101 >18 years 39 - 117 39 - 117 PATIENT NOT FASTINGP ERFORMED BY: RASHEED [facility] Yfgbnh4532 [address] RoadDublin [place] [id number] ALT [Catalytic activity/Vol] 15 [iU]/L Normal 0-32 [facility] Work Phone: Comment on above: PATIENT NOT FASTINGP ERFORMED BY: RASHEED [facility] Kmdjsq3364 [address] RoadDublin [place] [id number] AST [Catalytic activity/Vol] 15 [iU]/L Normal 0-40 [facility] Work Phone: Comment on above: PATIENT NOT FASTINGP ERFORMED BY: RASHEED [facility] Gtjxxb4150 [address] RoadDublin [place] [id number] Bilirubin [Mass/Vol] 0.2 mg/dL Normal 0.0-1.2 Comp rehensive Internal Medicine Work Phone: Comment on above: PATIENT NOT FASTINGP ERFORMED BY: RASHEED [facility] Fytjgs7667 [address] RoadDublin [place] [id number] Calcium [Mass/Vol] 9.8 mg/dL Normal 8.7-10.2 [facility] Internal Medicine Work Phone: Comment on above: PATIENT NOT FASTINGP ERFORMED BY: CB [facility] Mzfhow1490 [address] RoadDublin [place] [id number] Chloride [Moles/Vol] 107 mmol/L Normal 97-108 Comp rehensive Internal Medicine Work Phone: Comment on above: PATIENT NOT FASTINGP ERFORMED BY: RASHEED [facility] Btpkan0231 [address] RoadDublin [place] [id number] CO2 [Moles/Vol] 21 mmol/L Normal 19-28 [facility] Internal Medicine Work Phone: Comment on above: PATIENT NOT FASTINGP ERFORMED BY: RASHEED [facility] Svgszg2045 [facility] [id number] Creatinine [Mass/Vol] 0.65 mg/dL Normal 0.57-1.[address] [facility] Work Phone: Comment on above: PATIENT NOT FASTINGP ERFORMED BY: CB [facility] Pyycws4986 [facility] [id number] GFR/1.73 sq M predicted among blacks CKD-EPI (S/P/Bld) [Vol rate/Area] 129 mL/min/1.73 Normal [facility] Work Phone: Comment on above: PATIENT NOT FASTINGP ERFORMED BY: CB [facility] Pgxtwa9357 [facility] [id number] GFR/1.73 sq M predicted among non-blacks CKD-EPI (S/P/Bld) [Vol rate/Area] 112 mL/min/1.73 Normal [facility] Work Phone: Comment on above: PATIENT NOT FASTINGP ERFORMED BY: RASHEED [facility] Gutrri9882 [facility] [id number] Globulin (S) [Mass/Vol] 2.4 g/dL Normal 1.5-4.5 [facility] Internal Medicine Work Phone: Comment on above: PATIENT NOT FASTINGP ERFORMED BY: CB [facility] Wroklp2433 [facility] [id number] Glucose [Mass/Vol] 101 mg/dL Abnormal 65-99 [facility] Internal Medicine Work Phone: Comment on above: PATIENT NOT FASTINGP ERFORMED BY: CB [facility] Behewc4205 [facility] [id number] Potassium [Moles/Vol] 4.7 mmol/L Normal 3.5-5.2 [facility] Internal Medicine Work Phone: Comment on above: PATIENT NOT FASTINGP ERFORMED BY: CB [facility] Juvoux5340 [address] RoadDublin [place] [id number] Protein [Mass/Vol] 6.8 g/dL Normal 6.0-8.5 [facility] Internal Medicine Work Phone: Comment on above: PATIENT NOT FASTINGP ERFORMED BY: CB [facility] Hpkfvp1425 [address] RoadDublin [place] [id number] Sodium [Moles/Vol] 142 mmol/L Normal 134-144 [facility] Internal Medicine Work Phone: Comment on above: PATIENT NOT FASTINGP ERFORMED BY: CB [facility] Fvdggx5063 [address] RoadDublin [place] [id number] Urea nitrogen [Mass/Vol] 17 mg/dL Normal 6-20 [facility] Internal Medicine Work Phone: Comment on above: PATIENT NOT FASTINGP ERFORMED BY: [facility] Jpbdag9516 [address] RoadDublin [place] [id number] Urea nitrogen/Creatinine [Mass ratio] 26 mg/mg Abnormal 8-20 [facility] Work Phone: Comment on above: PATIENT NOT FASTINGP ERFORMED BY: [facility] Viutco9087 [address] RoadDublin [place] [id number] TSH ([id number])Ordered By: PropertyBridgee m Floor Installation Mechanic on 07-23-2013 TSH Qn 0.564 {uIU/mL} Normal 0.450-4.500 [facility] Internal Medicine Work Phone: Comment on above: PATIENT NOT FASTINGP ERFORMED BY: CB [facility] Majvii6303 [address] RoadDublin [place] [id number] Information: ADD [id number] CBC with manual diff (18837) Ordered By: Die Sinking Machine Operator on 04-10-2013 Basophils (Bld) [#/Vol] 0.0 {x10E3/uL} Normal 0.0-0.2 [facility] Internal Medicine Work Phone: Comment on above: PATIENT NOT FASTINGP ERFORMED BY: CB [facility] Amrtfo3286 [address] RoadDublin [place] [id number] Information: AD I08553 AND DRAW FEE 996 660 Basophils/100 WBC (Bld) 0 % Normal 0-3 [facility] Work Phone: Comment on above: PATIENT NOT FASTINGP ERFORMED BY: RASHEED [facility] Fknihs3853 [facility] [id number] Information: AD W26620 AND DRAW FEE 996 660 Eosinophils (Bld) [#/Vol] 0.3 {x10E3/uL} Normal 0.0-0.4 [facility] Work Phone: Comment on above: PATIENT NOT FASTINGP ERFORMED BY: CB [facility] Umgxgt5797 [facility] [id number] Information: CARI P94646 AND DRAW FEE 996 660 Eosinophils/100 WBC (Bld) 3 % Normal 0-7 [facility] Work Phone: Comment on above: PATIENT NOT FASTINGP ERFORMED BY: RASHEED [facility] Iobrhy2516 [facility] [id number] Information: CARI J35953 AND DRAW FEE 996 660 Erythrocyte distribution width (RBC) [Ratio] 13.4 % Normal 12.3-15.4 [facility] Work Phone: Comment on above: PATIENT NOT FASTINGP ERFORMED BY: CB [facility] Chvsqc2628 [facility] [id number] Information: CARI L07811 AND DRAW FEE 996 660 Hematocrit (Bld) [Volume fraction] 42.1 % Normal 34.0-46.6 [facility] Work Phone: Comment on above: PATIENT NOT FASTINGP ERFORMED BY: CB [facility] Arizgg0486 [facility] [id number] Information: CARI D33645 AND DRAW FEE 996 660 Hemoglobin (Bld) [Mass/Vol] 13.9 g/dL Normal 11.1-15.9 [facility] Work Phone: Comment on above: PATIENT NOT FASTINGP ERFORMED BY: CB [facility] Llvrrp9131 [facility] [id number] Information: AD G22645 AND DRAW FEE 996 660 Immature granulocytes (Bld) [#/Vol] 0.0 {x10E3/uL} Normal 0.0-0.1 [facility] Work Phone: Comment on above: PATIENT NOT FASTINGP ERFORMED BY: CB [facility] Ctbosf4099 [facility] RoadNov[facility]in [place] [id number] Information: AD R80729 AND DRAW FEE 996 660 Immature granulocytes/100 WBC (Bld) 0 % Normal 0-2 [facility] Work Phone: Comment on above: PATIENT NOT FASTINGP ERFORMED BY: CB [facility] Nyeuhi7299 [facility] [id number] Information: AD Z19115 AND DRAW FEE 996 660 Lymphocytes (Bld) [#/Vol] 3.4 {x10E3/uL} Normal 0.7-4.5 [facility] Work Phone: Comment on above: PATIENT NOT FASTINGP ERFORMED BY: CB [facility] Atomut7973 [facility] [id number] Information: AD P94369 AND DRAW FEE 996 660 Lymphocytes/100 WBC (Bld) 35 % Normal 14-46 [facility] Work Phone: Comment on above: PATIENT NOT FASTINGP ERFORMED BY: CB [facility] Pnjavj4029 [facility] [id number] Information: AD F86951 AND DRAW FEE 996 660 MCH (RBC) [Entitic mass] 29.8 pg Normal 26.6-33.0 [facility] Internal Medicine Work Phone: Comment on above: PATIENT NOT FASTINGP ERFORMED BY: CB [facility] Ygtsyz7887 [facility] [id number] Information: AD U77424 AND DRAW FEE 996 660 MCHC (RBC) [Mass/Vol] 33.0 g/dL Normal 31.5-35.7 [facility] Internal Medicine Work Phone: Comment on above: PATIENT NOT FASTINGP ERFORMED BY: CB [facility] Nklfvq0433 [facility] [id number] Information: AD [id number] AND DRAW FEE 996 660 MCV (RBC) [Entitic vol] 90 fL Normal 79-97 [facility] Work Phone: Comment on above: PATIENT NOT FASTINGP ERFORMED BY: RASHEED OchoaCokate SmithGqkowv8129 [facility] [id number] Information: AD [id number] AND DRAW FEE 996 660 Monocytes (Bld) [#/Vol] 0.6 {x10E3/uL} Normal 0.1-1.0 [facility] Work Phone: Comment on above: PATIENT NOT FASTINGP ERFORMED BY: RASHEED Smith6370 [facility] [id number] Information: AD [id number] AND DRAW FEE 996 660 Monocytes/100 WBC (Bld) 7 % Normal 4-13 [facility] Work Phone: Comment on above: PATIENT NOT FASTINGP ERFORMED BY: RASHEED Smith6370 [facility] [id number] Information: AD [id number] AND DRAW FEE 996 660 Neutrophils (Bld) [#/Vol] 5.3 {x10E3/uL} Normal 1.8-7.8 [facility] Work Phone: Comment on above: PATIENT NOT FASTINGP ERFORMED BY: RASHEED OchoaCokate SmithYkwloe4543 [facility] [id number] Information: AD [id number] AND DRAW FEE 996 660 Neutrophils/100 WBC (Bld) 55 % Normal 40-74 [facility] Work Phone: Comment on above: PATIENT NOT FASTINGP ERFORMED BY: RASHEED [facility] Ktjitu1174 [facility] [id number] Information: AD [id number] AND DRAW FEE 996 660 Platelets (Bld) [#/Vol] 279 {x10E3/uL} Normal 140-415 [facility] Work Phone: Comment on above: PATIENT NOT FASTINGP ERFORMED BY: RASHEED [facility] Unqbjc6920 [facility] [place] [id number] Information: AD [id number] AND DRAW FEE 996 660 RBC (Bld) [#/Vol] 4.67 {x10E6/uL} Normal 3.77-5.28 [facility] Internal Medicine Work Phone: Comment on above: PATIENT NOT FASTINGP ERFORMED BY: CB [facility] Lexesp7262 [place] [facility] [place] [id number] Information: AD [id number] AND DRAW FEE 996 660 WBC (Bld) [#/Vol] 9.7 {x10E3/uL} Normal 4.0-10.5 [facility] Internal Medicine Work Phone: Comment on above: PATIENT NOT FASTINGP ERFORMED BY: RASHEED [facility] Yylqxp6832 [facility] [place] [id number] Information: AD [id number] AND DRAW FEE 996 660 HEPATIC FUNCTION PANEL (8007 6)Ordered By: Die Sinking Machine Operator on 04-10-2013 Bilirubin.direct [Mass/Vol] 0.10 mg/dL Normal 0.00-0.40 [facility] Work Phone: Comment on above: PATIENT NOT FASTINGP ERFORMED BY: RASHEED [facility] Bipfzi4987 [facility] [id number] Metabolic Panel, Comprehensi ve (08045)Ordered By: Die Sinking Machine Operator on 04-10-2013 Albumin [Mass/Vol] 4.3 g/dL Normal 3.5-5.5 [facility] Internal Medicine Work Phone: Comment on above: PATIENT NOT FASTINGP ERFORMED BY: RASHEED [facility] Fdxsbo1946 [place] [facility] [place] [id number] Albumin/Globulin [Mass ratio] 1.8 {ratio} Normal 1.1-2.5 [facility] Work Phone: Comment on above: PATIENT NOT FASTINGP ERFORMED BY: RASHEED [facility] Luyfjp5233 [place] [facility] [place] [id number] ALP [Catalytic activity/Vol] 73 [iU]/L Normal 42-107 [facility] Work Phone: Comment on above: Please note refere nce interval change PATIENT NOT FASTINGP ERFORMED BY: CB [facility] Fnwgeu2306 Moss RoadDublin [place] [id number] ALT [Catalytic activity/Vol] 14 [iU]/L Normal 0-32 [facility] Work Phone: Comment on above: PATIENT NOT FASTINGP ERFORMED BY: CB [facility] Oyfzjz7978 Moss RoadDublin [place] [id number] AST [Catalytic activity/Vol] 14 [iU]/L Normal 0-40 [facility] Work Phone: Comment on above: PATIENT NOT FASTINGP ERFORMED BY: CB [facility] Qvwssg5555 Moss RoadDublin [place] [id number] Bilirubin [Mass/Vol] 0.3 mg/dL Normal 0.0-1.2 Comp rehensive Internal Medicine Work Phone: Comment on above: PATIENT NOT FASTINGP ERFORMED BY: CB [facility] Jepqms5994 Moss RoadDublin [place] [id number] Calcium [Mass/Vol] 9.3 mg/dL Normal 8.7-10.2 [facility] Internal Medicine Work Phone: Comment on above: PATIENT NOT FASTINGP ERFORMED BY: CB [facility] Pyunnn7345 Moss RoadDublin [place] [id number] Chloride [Moles/Vol] 109 mmol/L Abnormal 97-108 Comp rehensive Internal Medicine Work Phone: Comment on above: PATIENT NOT FASTINGP ERFORMED BY: CB [facility] Yuxpwl4212 [address] RoadDublin [place] [id number] CO2 [Moles/Vol] 20 mmol/L Normal 19-28 Comprehen [facility] Internal Medicine Work Phone: Comment on above: PATIENT NOT FASTINGP ERFORMED BY: CB [facility] Dgabkg9328 Moss RoadDublin [place] [id number] Creatinine [Mass/Vol] 0.75 mg/dL Normal 0.57-1.00 [facility] prehensive Internal Medicine Work Phone: Comment on above: PATIENT NOT FASTINGP ERFORMED BY: CB [facility] Midlbx3104 [address] RoadDublin [place] [id number] GFR/1.73 sq M predicted among blacks CKD-EPI (S/P/Bld) [Vol rate/Area] 116 mL/min/1.73 Normal [facility] Work Phone: Comment on above: PATIENT NOT FASTINGP ERFORMED BY: CB [facility] Yookti8005 [address] RoadDublin [place] [id number] GFR/1.73 sq M predicted among non-blacks CKD-EPI (S/P/Bld) [Vol rate/Area] 101 mL/min/1.73 Normal [facility] Work Phone: Comment on above: PATIENT NOT FASTINGP ERFORMED BY: CB [facility] Svlyuv8968 [address] RoadDublin [place] [id number] Globulin (S) [Mass/Vol] 2.4 g/dL Normal 1.5-4.5 [facility] Internal Medicine Work Phone: Comment on above: PATIENT NOT FASTINGP ERFORMED BY: CB [facility] Imrhlz3562 Moss RoadDublin [place] [id number] Glucose [Mass/Vol] 62 mg/dL Abnormal 65-99 [facility] Internal Medicine Work Phone: Comment on above: PATIENT NOT FASTINGP ERFORMED BY: CB [facility] Eqcwov3959 [address] RoadDublin [place] [id number] Potassium [Moles/Vol] 4.3 mmol/L Normal 3.5-5.2 [facility] Internal Medicine Work Phone: Comment on above: PATIENT NOT FASTINGP ERFORMED BY: CB [facility] Lmsefl9615 [address] RoadDublin [place] [id number] Protein [Mass/Vol] 6.7 g/dL Normal 6.0-8.5 [facility] Internal Medicine Work Phone: Comment on above: PATIENT NOT FASTINGP ERFORMED BY: CB [facility] Tpzgea7328 [address] RoadDublin [place] [id number] Sodium [Moles/Vol] 143 mmol/L Normal 134-144 [facility] Internal Medicine Work Phone: Comment on above: PATIENT NOT FASTINGP ERFORMED BY: CB [facility] Kkwami5251 [facility] [id number] Urea nitrogen [Mass/Vol] 16 mg/dL Normal 6-20 [facility] Work Phone: Comment on above: PATIENT NOT FASTINGP ERFORMED BY: CB [facility] Zgiiiz6963 [facility] [id number] Urea nitrogen/Creatinine [Mass ratio] 21 mg/mg Abnormal 8-20 [facility] Work Phone: Comment on above: PATIENT NOT FASTINGP ERFORMED BY: CB [facility] Axjdgk8736 [facility] [id number] CBC with manual diff ([id number]) Ordered By: Die Sinking Machine Operator on 01-15-2013 Basophils (Bld) [#/Vol] 0.1 {x10E3/uL} Normal 0.0-0.2 [facility] Work Phone: Comment on above: please fax a copy to Dr. Arvizu [phone]; PATIENT NOT FASTINGPERFORMED BY: [facility] Vbpdsp3525 [facility] [id number] Basophils/100 WBC (Bld) 1 % Normal 0-3 [facility] Work Phone: Comment on above: please fax a copy to Dr. Arvizu [phone]; PATIENT NOT FASTINGPERFORMED BY: [facility] Ohtffq9145 [facility] [id number] Eosinophils (Bld) [#/Vol] 0.4 {x10E3/uL} Normal 0.0-0.4 [facility] Work Phone: Comment on above: please fax a copy to Dr. Arvizu [phone]; PATIENT NOT FASTINGPERFORMED BY: [facility] Fhlryn5871 [facility] [id number] Eosinophils/100 WBC (Bld) 5 % Normal 0-7 [facility] Work Phone: Comment on above: please fax a copy to Dr. Arvizu [phone]; PATIENT NOT FASTINGPERFORMED BY: CB [facility] Msrpho2106 [facility] [place] [id number] Erythrocyte distribution width (RBC) [Ratio] 13.1 % Normal 12.3-15.4 [facility] Work Phone: Comment on above: please fax a copy to Dr. Arvizu [phone]; PATIENT NOT FASTINGPERFORMED BY: CB [facility] Dznbba3923 [facility] [id number] Hematocrit (Bld) [Volume fraction] 43.6 % Normal 34.0-46.6 [facility] Work Phone: Comment on above: please fax a copy to Dr. Arvizu [phone]; PATIENT NOT FASTINGPERFORMED BY: CB [facility] Iondad0721 [facility] [id number] Hemoglobin (Bld) [Mass/Vol] 14.3 g/dL Normal 11.1-15.9 [facility] Work Phone: Comment on above: please fax a copy to Dr. Arvizu [phone]; PATIENT NOT FASTINGPERFORMED BY: CB [facility] Jhnbgg0358 [facility] [id number] Immature granulocytes (Bld) [#/Vol] 0.0 {x10E3/uL} Normal 0.0-0.1 [facility] Work Phone: Comment on above: please fax a copy to Dr. Arvizu [phone]; PATIENT NOT FASTINGPERFORMED BY: CB [facility] Junprk3128 [facility]Nov[facility] Hospitalin [place] [id number] Immature granulocytes/100 WBC (Bld) 0 % Normal 0-2 [facility] Work Phone: Comment on above: please fax a copy to Dr. Arvizu [phone]; PATIENT NOT FASTINGPERFORMED BY: CB [facility] Vdzgjf1579 [address] Roadblin [place] [id number] Lymphocytes (Bld) [#/Vol] 2.3 {x10E3/uL} Normal 0.7-4.5 [facility] Work Phone: Comment on above: please fax a copy to Dr. Arvizu [phone]; PATIENT NOT FASTINGPERFORMED BY: CB [facility] Brxuhz1837 [address] RoadDublin [place] [id number] Lymphocytes/100 WBC (Bld) 27 % Normal 14-46 [facility] Work Phone: Comment on above: please fax a copy to Dr. Arvizu [phone]; PATIENT NOT FASTINGPERFORMED BY: CB [facility] Nzlnpm3597 [address] RoadDublin [place] [id number] MCH (RBC) [Entitic mass] 30.4 pg Normal 26.6-33.0 [facility] Internal Medicine Work Phone: Comment on above: please fax a copy to Dr. Arvizu [phone]; PATIENT NOT FASTINGPERFORMED BY: CB [facility] Onqunj1374 [address] RoadDublin [place] [id number] MCHC (RBC) [Mass/Vol] 32.8 g/dL Normal 31.5-35.7 [facility] Internal Medicine Work Phone: Comment on above: please fax a copy to Dr. Arvizu [phone]; PATIENT NOT FASTINGPERFORMED BY: CB [facility] Pgsbxm9152 [address] RoadDublin [place] [id number] MCV (RBC) [Entitic vol] 93 fL Normal 79-97 [facility] Work Phone: Comment on above: please fax a copy to Dr. Arvizu [phone]; PATIENT NOT FASTINGPERFORMED BY: CB [facility] Ilkaer3094 [address] RoadDublin [place] [id number] Monocytes (Bld) [#/Vol] 0.7 {x10E3/uL} Normal 0.1-1.0 [facility] Internal Medicine Work Phone: Comment on above: please fax a copy to Dr. Arvizu [phone]; PATIENT NOT FASTINGPERFORMED BY: CB [facility] Mwpwwv0631 [address] RoadDublin [place] [id number] Monocytes/100 WBC (Bld) 8 % Normal 4-13 [facility] Work Phone: Comment on above: please fax a copy to Dr. Arvizu [phone]; PATIENT NOT FASTINGPERFORMED BY: CB [facility] Fcafrp3145 [address] RoadDublin [place] [id number] Neutrophils (Bld) [#/Vol] 5.2 {x10E3/uL} Normal 1.8-7.8 [facility] Work Phone: Comment on above: please fax a copy to Dr. Arvizu [phone]; PATIENT NOT FASTINGPERFORMED BY: CB [facility] Ydmirf7128 [address] RoadDublin [place] [id number] Neutrophils/100 WBC (Bld) 59 % Normal 40-74 [facility] Work Phone: Comment on above: please fax a copy to Dr. Arvizu [phone]; PATIENT NOT FASTINGPERFORMED BY: CB [facility] Lohrvi9311 [address] RoadDublin [place] [id number] Platelets (Bld) [#/Vol] 271 {x10E3/uL} Normal 140-415 [facility] Work Phone: Comment on above: please fax a copy to Dr. Arvizu [phone]; PATIENT NOT FASTINGPERFORMED BY: CB [facility] Nsjfmu8901 [address] RoadDublin [place] [id number] RBC (Bld) [#/Vol] 4.71 {x10E6/uL} Normal 3.77-5.28 [facility] Internal Medicine Work Phone: Comment on above: please fax a copy to Dr. Arvizu [phone]; PATIENT NOT FASTINGPERFORMED BY: CB [facility] Alhcdh4447 [address] RoadD[address] [place] [id number] WBC (Bld) [#/Vol] 8.6 {x10E3/uL} Normal 4.0-10.5 [facility] Internal Medicine Work Phone: Comment on above: please fax a copy to Dr. Arvizu [phone]; PATIENT NOT FASTINGPERFORMED BY: CB [facility] Lfhmzx7954 [address] RoadDublin [place] [id number] Metabolic Panel, Comprehensi ve ([id number])Ordered By: Die Sinking Machine Operator on 01-15-2013 Albumin [Mass/Vol] 4.4 g/dL Normal 3.5-5.5 [facility] Internal Medicine Work Phone: Comment on above: please fax a copy to Dr. Arvizu [phone]; PATIENT NOT FASTINGPERFORMED BY: CB [facility] Bxqtbq5977 [address] RoadDublin [place] [id number] Albumin/Globulin [Mass ratio] 1.9 {ratio} Normal 1.1-2.5 [facility] Internal Medicine Work Phone: Comment on above: please fax a copy to Dr. Arvizu [phone]; PATIENT NOT FASTINGPERFORMED BY: CB [facility] Blludt0479 [address] RoadDublin [place] [id number] ALP [Catalytic activity/Vol] 67 [iU]/L Normal 25-150 [facility] Work Phone: Comment on above: please fax a copy to Dr. Arvizu [phone]; PATIENT NOT FASTINGPERFORMED BY: CB [facility] Wmgnfn8888 [address] RoadDublin [place] [id number] ALT [Catalytic activity/Vol] 20 [iU]/L Normal 0-32 [facility] Work Phone: Comment on above: please fax a copy to Dr. Arvizu [phone]; PATIENT NOT FASTINGPERFORMED BY: CB [facility] Raahhk1706 [address] RoadDublin [place] [id number] AST [Catalytic activity/Vol] 13 [iU]/L Normal 0-40 [facility] Work Phone: Comment on above: please fax a copy to Dr. Arvizu [phone]; PATIENT NOT FASTINGPERFORMED BY: CB [facility] Vfxpip9590 [address] RoadDublin [place] [id number] Bilirubin [Mass/Vol] 0.4 mg/dL Normal 0.0-1.2 [facility] Work Phone: Comment on above: please fax a copy to Dr. Arvizu [phone]; PATIENT NOT FASTINGPERFORMED BY: CB [facility] Mwtbwb7972 [address] RoadD[address] [place] [id number] Calcium [Mass/Vol] 9.2 mg/dL Normal 8.7-10.2 [facility] Internal Medicine Work Phone: Comment on above: please fax a copy to Dr. Arvizu [phone]; PATIENT NOT FASTINGPERFORMED BY: CB [facility] Dumika9286 [address] RoadDublin [place] [id number] Chloride [Moles/Vol] 107 mmol/L Normal 97-108 [facility] Work Phone: Comment on above: please fax a copy to Dr. Arvizu [phone]; PATIENT NOT FASTINGPERFORMED BY: CB [facility] Gdwdsh9150 [address] RoadDublin [place] [id number] CO2 [Moles/Vol] 20 mmol/L Normal 20-32 [facility] Internal Medicine Work Phone: Comment on above: please fax a copy to Dr. Arvizu [phone]; PATIENT NOT FASTINGPERFORMED BY: CB [facility] Qblkrh4690 [facility] RoadNov[facility] Hospitalin [place] [id number] Creatinine [Mass/Vol] 0.76 mg/dL Normal 0.57-1.[address] [facility] Work Phone: Comment on above: please fax a copy to Dr. Arvizu [phone]; PATIENT NOT FASTINGPERFORMED BY: CB [facility] Rpqkcm1258 [address] RoadD[address] [place] [id number] GFR/1.73 sq M predicted among blacks CKD-EPI (S/P/Bld) [Vol rate/Area] 115 mL/min/1.73 Normal [facility] Internal Medicine Work Phone: Comment on above: please fax a copy to Dr. Arvizu [phone]; PATIENT NOT FASTINGPERFORMED BY: CB [facility] Eucmxk3390 [address] Roadbl[address] [place] [id number] GFR/1.73 sq M predicted among non-blacks CKD-EPI (S/P/Bld) [Vol rate/Area] 100 mL/min/1.73 Normal [facility] Internal Medicine Work Phone: Comment on above: please fax a copy to Dr. Arvizu [phone]; PATIENT NOT FASTINGPERFORMED BY: CB [facility] Kevgzy0438 [address] Roadbl[address] [place] [id number] Globulin (S) [Mass/Vol] 2.3 g/dL Normal 1.5-4.5 [facility] Internal Medicine Work Phone: Comment on above: please fax a copy to Dr. Arvizu [phone]; PATIENT NOT FASTINGPERFORMED BY: CB [facility] Ccdiza0178 [address] RoadDublin [place] [id number] Glucose [Mass/Vol] 78 mg/dL Normal 65-99 [facility] Internal Medicine Work Phone: Comment on above: please fax a copy to Dr. Arvizu [phone]; PATIENT NOT FASTINGPERFORMED BY: CB [facility] Pnxdej7033 [address] Roadblin [place] [id number] Potassium [Moles/Vol] 4.5 mmol/L Normal 3.5-5.2 [facility] Internal Medicine Work Phone: Comment on above: please fax a copy to Dr. Arvizu [phone]; PATIENT NOT FASTINGPERFORMED BY: CB [facility] Upqhfi7004 [address] RoadDublin [place] [id number] Protein [Mass/Vol] 6.7 g/dL Normal 6.0-8.5 [facility] Internal Medicine Work Phone: Comment on above: please fax a copy to Dr. Arvizu [phone]; PATIENT NOT FASTINGPERFORMED BY: CB [facility] Qkvmfh9418 [address] RoadDublin [place] [id number] Sodium [Moles/Vol] 139 mmol/L Normal 134-144 [facility] Internal Medicine Work Phone: Comment on above: please fax a copy to Dr. Arvizu [phone]; PATIENT NOT FASTINGPERFORMED BY: CB [facility] Agrisd7647 [facility] [place] [id number] Urea nitrogen [Mass/Vol] 16 mg/dL Normal 6-20 [facility] Work Phone: Comment on above: please fax a copy to Dr. Arvizu [phone]; PATIENT NOT FASTINGPERFORMED BY: CB [facility] Xivmqv7163 [facility] [id number] Urea nitrogen/Creatinine [Mass ratio] 21 mg/mg Abnormal 8-20 [facility] Internal Medicine Work Phone: Comment on above: please fax a copy to Dr. Arvizu [phone]; PATIENT NOT FASTINGPERFORMED BY: [facility] Ytmswe5917 [facility] [id number] PT (PROTHROMBIN TIME) (75996 )Ordered By: Die Sinking Machine Operator on 10-18-2012 INR Coag (PPP) [Relative time] 1.1 {INR} Normal 0.8-1.2 [facility] Internal Medicine Work Phone: Comment on above: Reference interval i s for non-anticoagulated patients. . Suggested INR therapeutic range for Vitamin K antagonist therapy: Standard Dose (moderate intensity therapeutic range): 2.0 - 3.0 Higher intensity therapeutic range 2.5 - 3.5 PATIENT NOT FASTINGP ERFORMED BY: CB [facility] Tyapoy8730 [facility] [id number] Information: [id number] PT Coag (PPP) [Time] 11.3 {sec} Normal 9.1-12.0 [facility] Internal Medicine Work Phone: Comment on above: PATIENT NOT FASTINGP ERFORMED BY: CB [facility] Olwjmt0168 [facility] [id number] Information: [id number] PTT (ACTIVATED PARTIAL THROM BOPLASTIN TIME) (55595)Ordered By: Die Sinking Machine Operator on 10-18-2012 aPTT Coag (PPP) [Time] 28 {sec} Normal 24-33 [facility] Work Phone: Comment on above: This test has not be en validated for monitoring unfractionated heparintherapy. aPTT-based therapeutic ranges for unfractionated heparintherapy have not been established. For general guidelines onHeparin monitoring, refer to the [facility] Directory of Services. PATIENT NOT FASTINGP ERFORMED BY: [place] [id number] [facility] [id number] CBC with manual diff ([id number]) Ordered By: Die Sinking Machine Operator on 10-08-2012 Basophils (Bld) [#/Vol] 0.0 {x10E3/uL} Normal 0.0-0.2 [facility] Work Phone: Comment on above: PATIENT NOT FASTINGP ERFORMED BY: [address] [id number] Information: [id number], NURSE DRAW Basophils/100 WBC (Bld) 0 % Normal 0-3 [facility] Work Phone: Comment on above: PATIENT NOT FASTINGP ERFORMED BY: [address] [id number] Information: [id number], NURSE DRAW Eosinophils (Bld) [#/Vol] 0.2 {x10E3/uL} Normal 0.0-0.4 [facility] Work Phone: Comment on above: PATIENT NOT FASTINGP ERFORMED BY: [facility]6370 [facility] [id number] Information: [id number], NURSE DRAW Eosinophils/100 WBC (Bld) 3 % Normal 0-7 [facility] Work Phone: Comment on above: PATIENT NOT FASTINGP ERFORMED BY: [place] 6834070 [facility] [id number] Information: [id number], NURSE DRAW Erythrocyte distribution width (RBC) [Ratio] 13.3 % Normal 12.3-15.4 [facility] Work Phone: Comment on above: PATIENT NOT FASTINGP ERFORMED BY: RASHEED Julian Xdawia4174 [facility] [id number] Information: [id number], NURSE DRAW Hematocrit (Bld) [Volume fraction] 41.4 % Normal 34.0-46.6 [facility] Work Phone: Comment on above: PATIENT NOT FASTINGP ERFORMED BY: RASHEED OchoaCo Aufapd[address] [id number] Information: [id number], NURSE DRAW Hemoglobin (Bld) [Mass/Vol] 13.6 g/dL Normal 11.1-15.9 [facility] Work Phone: Comment on above: PATIENT NOT FASTINGP ERFORMED BY: RASHEED Castanedalin6370 [facility] [id number] Information: [id number], NURSE DRAW Immature granulocytes (Bld) [#/Vol] 0.0 {x10E3/uL} Normal 0.0-0.1 [facility] Work Phone: Comment on above: PATIENT NOT FASTINGP ERFORMED BY: RASHEED StormMaria [place] 3554070 [facility] [id number] Information: [id number], NURSE DRAW Immature granulocytes/100 WBC (Bld) 0 % Normal 0-2 [facility] Work Phone: Comment on above: PATIENT NOT FASTINGP ERFORMED BY: RASHEED StormMaria [place] 3554070 [facility] [id number] Information: [id number], NURSE DRAW Lymphocytes (Bld) [#/Vol] 2.4 {x10E3/uL} Normal 0.7-4.5 [facility] Work Phone: Comment on above: PATIENT NOT FASTINGP ERFORMED BY: RASHEED Storm Wflmvn4459 [facility] [id number] Information: [id number], NURSE DRAW Lymphocytes/100 WBC (Bld) 31 % Normal 14-46 [facility] Work Phone: Comment on above: PATIENT NOT FASTINGP ERFORMED BY: [facility]CoKessler Institute for RehabilitationHzlbqu4999 [facility] [id number] Information: [id number], NURSE DRAW MCH (RBC) [Entitic mass] 31.2 pg Normal 26.6-33.0 [facility] Internal Medicine Work Phone: Comment on above: PATIENT NOT FASTINGP ERFORMED BY: [facility] HospitalCo[address] [id number] Information: [id number], NURSE DRAW MCHC (RBC) [Mass/Vol] 32.9 g/dL Normal 31.5-35.7 [facility] Internal Medicine Work Phone: Comment on above: PATIENT NOT FASTINGP ERFORMED BY: LabCo[address] [id number] Information: [id number], NURSE DRAW MCV (RBC) [Entitic vol] 95 fL Normal 79-97 [facility] Internal Medicine Work Phone: Comment on above: PATIENT NOT FASTINGP ERFORMED BY: LabCoMaria [place]ille [id number] [facility] [id number] Information: [id number], NURSE DRAW Monocytes (Bld) [#/Vol] 0.5 {x10E3/uL} Normal 0.1-1.0 [facility] Internal Medicine Work Phone: Comment on above: PATIENT NOT FASTINGP ERFORMED BY: [facility] HospitalCoMaria [place] 3554070 [facility] [id number] Information: [id number], NURSE DRAW Monocytes/100 WBC (Bld) 7 % Normal 4-13 [facility] Work Phone: Comment on above: PATIENT NOT FASTINGP ERFORMED BY: LabCoMaria [place] [id number] [facility] [id number] Information: [id number], NURSE DRAW Neutrophils (Bld) [#/Vol] 4.6 {x10E3/uL} Normal 1.8-7.8 [facility] Work Phone: Comment on above: PATIENT NOT FASTINGP ERFORMED BY: [facility]6370 [facility] [facility] [id number] Information: [id number], NURSE DRAW Neutrophils/100 WBC (Bld) 59 % Normal 40-74 [facility] Internal Medicine Work Phone: Comment on above: PATIENT NOT FASTINGP ERFORMED BY: RASHEED OchoaStacey [place] [id number] [facility] [id number] Information: [id number], NURSE DRAW Platelets (Bld) [#/Vol] 258 {x10E3/uL} Normal 140-415 [facility] Internal Medicine Work Phone: Comment on above: PATIENT NOT FASTINGP ERFORMED BY: [address] [id number] Information: [id number], NURSE DRAW RBC (Bld) [#/Vol] 4.36 {x10E6/uL} Normal 3.77-5.28 [facility] Internal Medicine Work Phone: Comment on above: PATIENT NOT FASTINGP ERFORMED BY: DonStacey [place] [id number] [facility] [id number] Information: [id number], NURSE DRAW WBC (Bld) [#/Vol] 7.7 {x10E3/uL} Normal 4.0-10.5 [facility] Internal Medicine Work Phone: Comment on above: PATIENT NOT FASTINGP ERFORMED BY: [place] [id number] [facility] [id number] Information: [id number], NURSE DRAW MICROALBUMINOrdered By: Syst em Floor Installation Mechanic on 10-08-2012 Albumin DL <= 20 mg/L (U) [Mass/Vol] 2.5 ug/mL Normal 0.0-17.0 [facility] Internal Medicine Work Phone: Comment on above: PATIENT NOT FASTINGP ERFORMED BY: [facility]ED [facility]Henry [facility]6370 [facility] [id number] Albumin/Creatinine (U) [Mass ratio] 3.3 {mg/g_creat} Normal 0.0-30.0 [facility] Internal Medicine Work Phone: Comment on above: PATIENT NOT FASTINGP ERFORMED BY: RASHEED [facility] Cebwmw2411 [address] RoadDublin [place] [id number] Creatinine (U) [Mass/Vol] 75.9 mg/dL Normal 16.0-327.0 [facility] Work Phone: Comment on above: PATIENT NOT FASTINGP ERFORMED BY: CB [facility] Wxbboi7566 [address] RoadDublin [place] [id number] Metabolic Panel, Comprehensi ve ([id number])Ordered By: Die Sinking Machine Operator on 10-08-2012 Albumin [Mass/Vol] 4.4 g/dL Normal 3.5-5.5 [facility] Internal Medicine Work Phone: Comment on above: PATIENT NOT FASTINGP ERFORMED BY: RASHEED [facility] Lgizii4174 [address] RoadDublin [place] [id number] Albumin/Globulin [Mass ratio] 2.0 {ratio} Normal 1.1-2.5 [facility] Work Phone: Comment on above: PATIENT NOT FASTINGP ERFORMED BY: CB [facility] Cumcsy7538 [address] RoadDublin [place] [id number] ALP [Catalytic activity/Vol] 64 [iU]/L Normal 25-150 [facility] Work Phone: Comment on above: PATIENT NOT FASTINGP ERFORMED BY: RASHEED [facility] Vegeqr5629 [address] RoadDublin [place] [id number] ALT [Catalytic activity/Vol] 68 [iU]/L Abnormal 0-32 [facility] Work Phone: Comment on above: PATIENT NOT FASTINGP ERFORMED BY: CB [facility] Rcwgfr6362 [address] RoadDublin [place] [id number] AST [Catalytic activity/Vol] 36 [iU]/L Normal 0-40 [facility] Work Phone: Comment on above: PATIENT NOT FASTINGP ERFORMED BY: CB [facility] Zblalr6568 [address] RoadDublin [place] [id number] Bilirubin [Mass/Vol] 0.4 mg/dL Normal 0.0-1.2 [facility] Work Phone: Comment on above: PATIENT NOT FASTINGP ERFORMED BY: CB [facility] Lgoyac0751 [address] RoadDublin [place] [id number] Calcium [Mass/Vol] 9.2 mg/dL Normal 8.7-10.2 [facility] Internal Medicine Work Phone: Comment on above: PATIENT NOT FASTINGP ERFORMED BY: CB [facility] Jaswtn6732 [address] RoadDublin [place] [id number] Chloride [Moles/Vol] 106 mmol/L Normal 97-108 Comp rehensive Internal Medicine Work Phone: Comment on above: PATIENT NOT FASTINGP ERFORMED BY: CB [facility] Unwpnq5499 [address] RoadDublin [place] [id number] CO2 [Moles/Vol] 19 mmol/L Abnormal 20-32 [facility] Work Phone: Comment on above: PATIENT NOT FASTINGP ERFORMED BY: CB [facility] Gsmvdo0748 [address] RoadDublin [place] [id number] Creatinine [Mass/Vol] 0.79 mg/dL Normal 0.57-1.00 [facility] Internal Medicine Work Phone: Comment on above: PATIENT NOT FASTINGP ERFORMED BY: CB [facility] Jyzfrh0103 [address] RoadDublin [place] [id number] GFR/1.73 sq M predicted among blacks CKD-EPI (S/P/Bld) [Vol rate/Area] 110 mL/min/1.73 Normal [facility] Work Phone: Comment on above: PATIENT NOT FASTINGP ERFORMED BY: CB [facility] Swygiv3591 [address] RoadDublin [place] [id number] GFR/1.73 sq M predicted among non-blacks CKD-EPI (S/P/Bld) [Vol rate/Area] 95 mL/min/1.73 Normal [facility] Work Phone: Comment on above: PATIENT NOT FASTINGP ERFORMED BY: CB [facility] Gfocbc8120 [address] RoadDublin [place] [id number] Globulin (S) [Mass/Vol] 2.2 g/dL Normal 1.5-4.5 [facility] Internal Medicine Work Phone: Comment on above: PATIENT NOT FASTINGP ERFORMED BY: CB [facility] Taxhlt1707 [address] RoadDublin [place] [id number] Glucose [Mass/Vol] 83 mg/dL Normal 65-99 [facility] Internal Medicine Work Phone: Comment on above: PATIENT NOT FASTINGP ERFORMED BY: CB [facility] Ylpjkn7386 [address] RoadDublin [place] [id number] Potassium [Moles/Vol] 4.3 mmol/L Normal 3.5-5.2 [facility] Internal Medicine Work Phone: Comment on above: PATIENT NOT FASTINGP ERFORMED BY: CB [facility] Exyuls8062 [address] RoadDublin [place] [id number] Protein [Mass/Vol] 6.6 g/dL Normal 6.0-8.5 [facility] Internal Medicine Work Phone: Comment on above: PATIENT NOT FASTINGP ERFORMED BY: CB [facility] Knzrvi4732 [address] RoadDublin [place] [id number] Sodium [Moles/Vol] 140 mmol/L Normal 134-144 [facility] Internal Medicine Work Phone: Comment on above: PATIENT NOT FASTINGP ERFORMED BY: CB [facility] Jrymxv2098 [address] RoadDublin [place] [id number] Urea nitrogen [Mass/Vol] 11 mg/dL Normal 6-20 [facility] Internal Medicine Work Phone: Comment on above: PATIENT NOT FASTINGP ERFORMED BY: CB [facility] Popgue0396 [address] RoadDublin [place] [id number] Urea nitrogen/Creatinine [Mass ratio] 14 mg/mg Normal 8-20 [facility] Internal Medicine Work Phone: Comment on above: PATIENT NOT FASTINGP ERFORMED BY: CB [facility] Icdwfm1316 [address] RoadDublin [place] [id number] URINALYSIS ([id number])Ordered By : Die Sinking Machine Operator on 10-08-2012 Appearance (U) Clear Normal Comprehens esme Internal Medicine Work Phone: Comment on above: PATIENT NOT FASTINGP ERFORMED BY: RASHEED [facility] Ylywsv4354 [address] RoadDublin [place] [id number] Bilirubin Ql (U) Negative Normal Comprehe nsive Internal Medicine Work Phone: Comment on above: PATIENT NOT FASTINGP ERFORMED BY: RASHEED [facility] Ondtbx7032 [address] RoadDublin [place] [id number] Color (U) Yellow Normal [facility] Work Phone: Comment on above: PATIENT NOT FASTINGP ERFORMED BY: RASHEED [facility] Cpxfbf6133 [address] RoadDublin [place] [id number] Glucose Ql (U) Negative Normal Comprehens esme Internal Medicine Work Phone: Comment on above: PATIENT NOT FASTINGP ERFORMED BY: RASHEED [facility] Fohtfs3711 [address] RoadDublin [place] [id number] Hemoglobin Ql (U) Negative Normal Compreh ensive Internal Medicine Work Phone: Comment on above: PATIENT NOT FASTINGP ERFORMED BY: RASHEED [facility] Yzdlqu7441 [address] RoadDublin [place] [id number] Ketones Ql (U) Negative Normal Comprehens esme Internal Medicine Work Phone: Comment on above: PATIENT NOT FASTINGP ERFORMED BY: RASHEED [facility] Goyxnq9669 [address] RoadDublin [place] [id number] Leukocyte esterase Test strip Ql (U) Negative Normal [facility] Work Phone: Comment on above: PATIENT NOT FASTINGP ERFORMED BY: RASHEED [facility] Alenis7630 [address] RoadDublin [place] [id number] Microscopic observation LM Nom (Urine sed) MICRON Normal [facility] Work Phone: Comment on above: Microscopic follows if indicated. PATIENT NOT FASTINGP ERFORMED BY: RASHEED [facility] Andcgn6964 [address] RoadDublin [place] [id number] Nitrite Ql (U) Negative Normal Comprehens esme Internal Medicine Work Phone: Comment on above: PATIENT NOT FASTINGP ERFORMED BY: RASHEED [facility] Vykvyg0604 [address] RoadDublin [place] [id number] pH (U) 7.5 [pH] Normal 5.0-7.5 [facility] Work Phone: Comment on above: PATIENT NOT FASTINGP ERFORMED BY: RASHEED Storm Kzvgwu3097 [facility] [id number] Protein Ql (U) Negative Normal Comprehens esme Internal Medicine Work Phone: Comment on above: PATIENT NOT FASTINGP ERFORMED BY: [facility]6370 [facility] [id number] Specific gravity (U) [Rel density] 1.014 1 Normal 1.005-1.030 [facility] Work Phone: Comment on above: PATIENT NOT FASTINGP ERFORMED BY: RASHEED [facility]6370 [facility] [id number] Urobilinogen Test strip (U) [Mass/Vol] 1.0 mg/dL Normal 0.0-1.9 Comprehensi Internal Medicine Work Phone: Comment on above: PATIENT NOT FASTINGP ERFORMED BY: [facility]6370 [facility] [id number] URIC ACID BLOOD ([id number])Order ed By: Die Sinking Machine Operator on 07-16-2012 Urate [Mass/Vol] 3.2 mg/dL Normal 2.5-7.1 Comprehe nsive Internal Medicine Work Phone: Comment on above: Therapeutic target f or gout patients: <6.0 PATIENT NOT FASTINGP ERFORMED BY: [facility]6370 [facility] [id number] Information: [id number] CBC with manual diff (47849) Ordered By: Die Sinking Machine Operator on 04-30-2012 Basophils (Bld) [#/Vol] 0.0 {x10E3/uL} Normal 0.0-0.2 [facility] Work Phone: Comment on above: aib arvizu at fax ; PATIENT NOT FASTINGPERFORMED BY: [place] [id number] [facility] [id number] Information: [id number] Basophils/100 WBC (Bld) 0 % Normal 0-3 [facility] Work Phone: Comment on above: cc marklanki at fax 3 [phone]; PATIENT NOT FASTINGPERFORMED BY: LabCoMaria Ville [id number] [facility] [id number] Information: [id number] Eosinophils (Bld) [#/Vol] 0.2 {x10E3/uL} Normal 0.0-0.4 [facility] Work Phone: Comment on above: cc vellanki at fax 3 [phone]; PATIENT NOT FASTINGPERFORMED BY: LabStacey [place] 6284970 [facility] [id number] Information: [id number] Eosinophils/100 WBC (Bld) 3 % Normal 0-7 [facility] Work Phone: Comment on above: cc vellanki at fax 3 [phone]; PATIENT NOT FASTINGPERFORMED BY: LabStacey [place] 6284970 [facility] [id number] Information: [id number] Erythrocyte distribution width (RBC) [Ratio] 13.6 % Normal 12.3-15.4 [facility] Work Phone: Comment on above: cc vellanki at fax 3 [phone]; PATIENT NOT FASTINGPERFORMED BY: [place] [id number] [facility] [id number] Information: [id number] Hematocrit (Bld) [Volume fraction] 41.8 % Normal 34.0-46.6 [facility] Work Phone: Comment on above: cc marklanki at fax 3 [phone]; PATIENT NOT FASTINGPERFORMED BY: [facility] Fsyxnh0085 [facility] [id number] Information: [id number] Hemoglobin (Bld) [Mass/Vol] 14.1 g/dL Normal 11.1-15.9 [facility] Work Phone: Comment on above: abi floreslanki at fax 3 [phone]; PATIENT NOT FASTINGPERFORMED BY: CB [facility] Rkbjku3661 [facility] [id number] Information: [id number] Immature granulocytes (Bld) [#/Vol] 0.0 {x10E3/uL} Normal 0.0-0.1 [facility] Work Phone: Comment on above: cc marklanki at fax 3 [phone]; PATIENT NOT FASTINGPERFORMED BY: CB [facility] Unmeqo7991 [facility] [id number] Information: [id number] Immature granulocytes/100 WBC (Bld) 0 % Normal 0-2 [facility] Work Phone: Comment on above: abi arvizu at fax 3 [phone]; PATIENT NOT FASTINGPERFORMED BY: LabCoKessler Institute for RehabilitationBjcoda5682 [facility] [id number] Information: [id number] Lymphocytes (Bld) [#/Vol] 1.8 {x10E3/uL} Normal 0.7-4.5 [facility] Work Phone: Comment on above: abi floreslanjames at fax 3 [phone]; PATIENT NOT FASTINGPERFORMED BY: CB [facility] Cndgop2796 [facility] [id number] Information: [id number] Lymphocytes/100 WBC (Bld) 24 % Normal 14-46 [facility] Work Phone: Comment on above: abi floreslanki at fax 3 [phone]; PATIENT NOT FASTINGPERFORMED BY: CB [facility] Hgiclp7633 [facility] [id number] Information: [id number] MCH (RBC) [Entitic mass] 31.2 pg Normal 26.6-33.0 [facility] Work Phone: Comment on above: abi arvizu at fax 3 8; PATIENT NOT FASTINGPERFORMED BY: RASHEED [facility]6370 [facility] [id number] Information: [id number] MCHC (RBC) [Mass/Vol] 33.7 g/dL Normal 31.5-35.7 [facility] Internal Medicine Work Phone: Comment on above: abi arvizu at fax 3 072; PATIENT NOT FASTINGPERFORMED BY: RASHEED [place] 8986070 [facility] [id number] Information: [id number] MCV (RBC) [Entitic vol] 93 fL Normal 79-97 [facility] Work Phone: Comment on above: abi arvizu at fax 3 ; PATIENT NOT FASTINGPERFORMED BY: RASHEED [facility]6370 [facility] [id number] Information: [id number] Monocytes (Bld) [#/Vol] 0.7 {x10E3/uL} Normal 0.1-1.0 [facility] Work Phone: Comment on above: abi arvizu at fax 3 [phone]; PATIENT NOT FASTINGPERFORMED BY: [facility]6370 [facility] [id number] Information: [id number] Monocytes/100 WBC (Bld) 9 % Normal 4-13 [facility] Work Phone: Comment on above: abi arvizu at fax 3 9; PATIENT NOT FASTINGPERFORMED BY: [facility]6370 [facility] [id number] Information: [id number] Neutrophils (Bld) [#/Vol] 4.9 {x10E3/uL} Normal 1.8-7.8 [facility] Work Phone: Comment on above: abi arvizu at fax 3 [phone]; PATIENT NOT FASTINGPERFORMED BY: RASHEED [facility] Cqyyag2446 [facility] [id number] Information: [id number] Neutrophils/100 WBC (Bld) 64 % Normal 40-74 [facility] Internal Medicine Work Phone: Comment on above: abi arvizu at fax 3 0; PATIENT NOT FASTINGPERFORMED BY: CB [facility] Gctklc5428 [facility] [id number] Information: [id number] Platelets (Bld) [#/Vol] 224 {x10E3/uL} Normal 140-415 [facility] Internal Medicine Work Phone: Comment on above: abi arvizu at fax 3 [phone]; PATIENT NOT FASTINGPERFORMED BY: CB [facility] Jmhgio0759 [facility] [id number] Information: [id number] RBC (Bld) [#/Vol] 4.52 {x10E6/uL} Normal 3.77-5.28 [facility] Internal Medicine Work Phone: Comment on above: abi arvizu at fax 3 [phone]; PATIENT NOT FASTINGPERFORMED BY: [facility] Rdrkve3531 [facility] [id number] Information: [id number] WBC (Bld) [#/Vol] 7.6 {x10E3/uL} Normal 4.0-10.5 [facility] Internal Medicine Work Phone: Comment on above: abi arvizu at fax 3 [phone]; PATIENT NOT FASTINGPERFORMED BY: RASHEED [facility] Xrfwha5280 [facility] [id number] Information: [id number] Metabolic Panel, Comprehensi ve (77767)Ordered By: Die Sinking Machine Operator on 04-30-2012 Albumin [Mass/Vol] 4.1 g/dL Normal 3.5-5.5 [facility] Internal Medicine Work Phone: Comment on above: abi arvizu at fax 3 9; PATIENT NOT FASTINGPERFORMED BY: CB [facility] Lmcnbx9499 [address] RoadDublin [place] [id number] Albumin/Globulin [Mass ratio] 2.0 {ratio} Normal 1.1-2.5 [facility] Work Phone: Comment on above: abi arvizu at fax 3 5; PATIENT NOT FASTINGPERFORMED BY: CB [facility] Srjbmg8978 [address] RoadDublin [place] [id number] ALP [Catalytic activity/Vol] 55 [iU]/L Normal 25-150 [facility] Work Phone: Comment on above: abi arvizu at fax 3 9; PATIENT NOT FASTINGPERFORMED BY: CB [facility] Rifgfl7529 [address] RoadDublin [place] [id number] ALT [Catalytic activity/Vol] 9 [iU]/L Normal 0-40 [facility] Work Phone: Comment on above: abi arvizu at fax 3 6; PATIENT NOT FASTINGPERFORMED BY: CB [facility] Baospu2379 [address] RoadDublin [place] [id number] AST [Catalytic activity/Vol] 13 [iU]/L Normal 0-40 [facility] Work Phone: Comment on above: abi arvizu at fax 3 8; PATIENT NOT FASTINGPERFORMED BY: CB [facility] Gevkhl7763 [address] RoadDublin [place] [id number] Bilirubin [Mass/Vol] 0.2 mg/dL Normal 0.0-1.2 [facility] Internal Medicine Work Phone: Comment on above: abi arvizu at fax 3 [phone]; PATIENT NOT FASTINGPERFORMED BY: CB [facility] Ylexoy7588 [address] RoadDublin [place] [id number] Calcium [Mass/Vol] 8.9 mg/dL Normal 8.7-10.2 [facility] Internal Medicine Work Phone: Comment on above: abi arvizu at fax 3 [phone]; PATIENT NOT FASTINGPERFORMED BY: CB [facility] Soysaq3566 [address] RoadDublin [place] [id number] Chloride [Moles/Vol] 110 mmol/L Abnormal 97-108 [facility] Work Phone: Comment on above: abi arvizu at fax 3 [phone]; PATIENT NOT FASTINGPERFORMED BY: CB [facility] Lurrzq0931 [address] RoadDublin [place] [id number] CO2 [Moles/Vol] 21 mmol/L Normal 20-32 [facility] Internal Medicine Work Phone: Comment on above: abi arvizu at fax 3 [phone]; PATIENT NOT FASTINGPERFORMED BY: CB [facility] Hugrmx5905 [address] RoadNovant Health [facility] Orthopaedic Hospitalin [place] [id number] Creatinine [Mass/Vol] 0.73 mg/dL Normal 0.57-1.[address] [facility] Work Phone: Comment on above: abi arvizu at fax 3 [phone]; PATIENT NOT FASTINGPERFORMED BY: CB [facility] Lmsxfj4837 [address] Roadblin [place] [id number] GFR/1.73 sq M predicted among blacks CKD-EPI (S/P/Bld) [Vol rate/Area] 121 mL/min/1.73 Normal [facility] Work Phone: Comment on above: abi arvizu at fax 3 [phone]; PATIENT NOT FASTINGPERFORMED BY: CB [facility] Oskwix6425 [address] RoadDublin [place] [id number] GFR/1.73 sq M predicted among non-blacks CKD-EPI (S/P/Bld) [Vol rate/Area] 105 mL/min/1.73 Normal [facility] Work Phone: Comment on above: abi arvizu at fax 3 [phone]; PATIENT NOT FASTINGPERFORMED BY: CB [facility] Atuwia2128 [facility] [id number] Globulin (S) [Mass/Vol] 2.1 g/dL Normal 1.5-4.5 [facility] Internal Medicine Work Phone: Comment on above: abi arvizu at fax 3 [phone]; PATIENT NOT FASTINGPERFORMED BY: CB [facility] Emhpkr7369 [facility]Critical access hospital [id number] Glucose [Mass/Vol] 108 mg/dL Abnormal 65-99 [facility] Internal Medicine Work Phone: Comment on above: cc marklanki at fax 3 [phone]; PATIENT NOT FASTINGPERFORMED BY: CB [facility] Epqnbo9956 [address] [facility] [id number] Potassium [Moles/Vol] 5.0 mmol/L Normal 3.5-5.2 [facility] Internal Medicine Work Phone: Comment on above: abi arvizu at fax 3 [phone]; PATIENT NOT FASTINGPERFORMED BY: CB [facility] Uxhtmi0350 [address] [facility] [id number] Protein [Mass/Vol] 6.2 g/dL Normal 6.0-8.5 [facility] Internal Medicine Work Phone: Comment on above: abi arvizu at fax 3 [phone]; PATIENT NOT FASTINGPERFORMED BY: CB [facility] Iukcjx5079 [facility] [id number] Sodium [Moles/Vol] 141 mmol/L Normal 134-144 [facility] Internal Medicine Work Phone: Comment on above: abi floreslanjames at fax 3 [phone]; PATIENT NOT FASTINGPERFORMED BY: CB [facility] Zctzui8745 [facility] [id number] Urea nitrogen [Mass/Vol] 16 mg/dL Normal 6-20 [facility] Internal Medicine Work Phone: Comment on above: abi arvizu at fax 3 [phone]; PATIENT NOT FASTINGPERFORMED BY: CB [facility] Wiefgk3166 [facility] [id number] Urea nitrogen/Creatinine [Mass ratio] 22 mg/mg Abnormal 8-20 [facility] Work Phone: Comment on above: abi arvizu at fax 3 [phone]; PATIENT NOT FASTINGPERFORMED BY: RASHEED [facility] Mbahbn5637 [facility] [id number] URINE KIMBERLY CULTURE-IDENTIFICA [place] (85407)Ordered By: Die Sinking Machine Operator on 11-22-2011 Bacteria identified Cx Nom (U) Final report Normal [facility] Work Phone: Comment on above: PATIENT NOT FASTINGP ERFORMED BY: RASHEED [facility] Isyqqt0484 [facility] [id number] Bacteria identified Cx Nom (U) Escherichia coli Normal [facility] Work Phone: Comment on above: Greater than 100,000 colony forming units per mL PATIENT NOT FASTINGP ERFORMED BY: RASHEED [facility] Uukbcm6831 [facility] [id number] Other Antibiotic [Susc] MIHEAD Normal [facility] Work Phone: Comment on above: S = Susceptibl e; I = Intermediate; R = Resistant P = Positive; N = Negative MICS are expressed in micrograms per mL Antibiotic RSLT#1 RSLT#2 RSLT#3 RSLT#4Amoxicillin/Clavulanic Acid SAmpicillin SCefazolin SCefepime SCeftriaxone SCefuroxime SCephalothin SCiprofloxacin SESBL NErtapenem SGentamicin SImipenem SLevofloxacin SNitrofurantoin SPiperacillin STetracycline STobramycin STrimethoprim/Sulfa S PATIENT NOT FASTINGP ERFORMED BY: RASHEED [facility] Qtkbhq0691 [facility] [id number] HEPATIC FUNCTION PANEL (8468 6)Ordered By: Die Sinking Machine Operator on 11-21-2011 Albumin [Mass/Vol] 4.0 g/dL Normal 3.5-5.5 [facility] Internal Medicine Work Phone: Comment on above: PATIENT NOT FASTINGP ERFORMED BY: RASHEED LabFrankrp Xmrryn7780 [address] RoadDublin [place] [id number] ALP [Catalytic activity/Vol] 48 [iU]/L Normal 25-150 [facility] Work Phone: Comment on above: PATIENT NOT FASTINGP ERFORMED BY: CB [facility] Pqprdw2280 [address] RoadDublin [place] [id number] ALT [Catalytic activity/Vol] 9 [iU]/L Normal 0-40 [facility] Work Phone: Comment on above: PATIENT NOT FASTINGP ERFORMED BY: CB [facility] Fuzsnz0661 [address] RoadDublin [place] [id number] AST [Catalytic activity/Vol] 11 [iU]/L Normal 0-40 [facility] Work Phone: Comment on above: PATIENT NOT FASTINGP ERFORMED BY: [facility] Myjlyj8728 [address] RoadDublin [place] [id number] Bilirubin [Mass/Vol] 0.2 mg/dL Normal 0.0-1.2 [facility] Work Phone: Comment on above: PATIENT NOT FASTINGP ERFORMED BY: CB [facility] Vbqglf0734 [address] RoadDublin [place] [id number] Bilirubin.direct [Mass/Vol] 0.08 mg/dL Normal 0.00-0.40 [facility] Work Phone: Comment on above: PATIENT NOT FASTINGP ERFORMED BY: CB [facility] Xgqphk7631 [address] RoadDublin [place] [id number] Protein [Mass/Vol] 6.2 g/dL Normal 6.0-8.5 [facility] Internal Medicine Work Phone: Comment on above: PATIENT NOT FASTINGP ERFORMED BY: CB [facility] Wxeisz7213 [address]Dublin [place] [id number] LAURA (ANTINUCLEAR ANTIBODY) ( [id number])Ordered By: Die Sinking Machine Operator on 01-11-2011 Nuclear Ab Ql (S) Positive Abnormal Compreh ensive Internal Medicine Work Phone: Comment on above: PATIENT NOT FASTINGP ERFORMED BY: CB [facility] Qmzkwg0347 [address] RoadDublin [place] [id number] CBC with manual diff ([id number]) Ordered By: Die Sinking Machine Operator on 01-11-2011 Basophils (Bld) [#/Vol] 0.0 {x10E3/uL} Normal 0.0-0.2 [facility] Work Phone: Comment on above: PATIENT NOT FASTINGP ERFORMED BY: RASHEED Storm Wakgrw9580 [facility] [id number] Basophils/100 WBC (Bld) 0 % Normal 0-3 [facility] Work Phone: Comment on above: PATIENT NOT FASTINGP ERFORMED BY: RASHEED Storm Ngvvdk7786 [facility] [id number] Eosinophils (Bld) [#/Vol] 0.2 {x10E3/uL} Normal 0.0-0.4 [facility] Work Phone: Comment on above: PATIENT NOT FASTINGP ERFORMED BY: RASHEED Storm Lfsmdb4044 [facility] [id number] Eosinophils/100 WBC (Bld) 2 % Normal 0-7 [facility] Work Phone: Comment on above: PATIENT NOT FASTINGP ERFORMED BY: RASHEED Castanedalin6370 [facility] [id number] Erythrocyte distribution width (RBC) [Ratio] 13.5 % Normal 11.7-15.0 [facility] Work Phone: Comment on above: PATIENT NOT FASTINGP ERFORMED BY: RASHEED Storm Mzhdbj2979 [facility] [id number] Hematocrit (Bld) [Volume fraction] 43.1 % Normal 34.0-44.0 [facility] Work Phone: Comment on above: PATIENT NOT FASTINGP ERFORMED BY: RASHEED Storm Qyubml8562 [facility] [id number] Hemoglobin (Bld) [Mass/Vol] 14.0 g/dL Normal 11.5-15.0 [facility] Work Phone: Comment on above: PATIENT NOT FASTINGP ERFORMED BY: RASHEED Iesha Castanedalin6370 [facility] [id number] Immature granulocytes (Bld) [#/Vol] 0.0 {x10E3/uL} Normal 0.0-0.1 [facility] Work Phone: Comment on above: PATIENT NOT FASTINGP ERFORMED BY: RASHEED Emeterio Rrggtk2219 [facility] [id number] Immature granulocytes/100 WBC (Bld) 0 % Normal 0-1 [facility] Work Phone: Comment on above: PATIENT NOT FASTINGP ERFORMED BY: RASHEED Emeterio Shamly1636 [facility] [id number] Lymphocytes (Bld) [#/Vol] 3.4 {x10E3/uL} Normal 0.7-4.5 [facility] Work Phone: Comment on above: PATIENT NOT FASTINGP ERFORMED BY: RASHEED Emeterio Bjzwyn1807 [facility] [id number] Lymphocytes/100 WBC (Bld) 33 % Normal 14-46 [facility] Work Phone: Comment on above: PATIENT NOT FASTINGP ERFORMED BY: RASHEED Emeterio Nfxfmr9528 [facility] [id number] MCH (RBC) [Entitic mass] 30.4 pg Normal 27.0-34.0 [facility] Work Phone: Comment on above: PATIENT NOT FASTINGP ERFORMED BY: RASHEED EmeterioKessler Institute for RehabilitationBnpsqm0600 [facility] [id number] MCHC (RBC) [Mass/Vol] 32.5 g/dL Normal 32.0-36.0 [facility] Internal Medicine Work Phone: Comment on above: PATIENT NOT FASTINGP ERFORMED BY: RASHEED EmeterioKessler Institute for RehabilitationGwiown4757 [facility] [id number] MCV (RBC) [Entitic vol] 94 fL Normal 80-98 [facility] Work Phone: Comment on above: PATIENT NOT FASTINGP ERFORMED BY: RASHEED Iesha Smith6[address] Road[address]ublin [place] [id number] Monocytes (Bld) [#/Vol] 0.7 {x10E3/uL} Normal 0.1-1.0 [facility] Work Phone: Comment on above: PATIENT NOT FASTINGP ERFORMED BY: RASHEED Iesha Rzizgg3107 [address] RoadDublin [place] [id number] Monocytes/100 WBC (Bld) 6 % Normal 4-13 [facility] Work Phone: Comment on above: PATIENT NOT FASTINGP ERFORMED BY: RASHEED [facility] Hbbgkq7620 [address] RoadDublin [place] [id number] Neutrophils (Bld) [#/Vol] 5.9 {x10E3/uL} Normal 1.8-7.8 [facility] Work Phone: Comment on above: PATIENT NOT FASTINGP ERFORMED BY: RASHEED Emeteriokate CastanedaErzzjr8966 [address] RoadNovant Health [facility] Orthopa[facility] Hospitalin [place] [id number] Neutrophils/100 WBC (Bld) 59 % Normal 40-74 [facility] Work Phone: Comment on above: PATIENT NOT FASTINGP ERFORMED BY: RASHEED LabMarybel Onhifc7948 [address] RoadDublin [place] [id number] Platelets (Bld) [#/Vol] 249 {x10E3/uL} Normal 140-415 [facility] Work Phone: Comment on above: PATIENT NOT FASTINGP ERFORMED BY: RASHEED Emeterio Abynso3761 [address] [facility]in [place] [id number] RBC (Bld) [#/Vol] 4.61 {x10E6/uL} Normal 3.80-5.10 [facility] Work Phone: Comment on above: PATIENT NOT FASTINGP ERFORMED BY: RASHEED [facility] Siitnw5632 [address] RoadDublin [place] [id number] WBC (Bld) [#/Vol] 10.3 {x10E3/uL} Normal 4.0-10.5 [facility]erehens[facility] Work Phone: Comment on above: PATIENT NOT FASTINGP ERFORMED BY: CB [facility] Ngjynf0809 [address] RoadDublin [place] [id number] Metabolic Panel, Comprehensi sarahi ([id number])Ordered By: Die Sinking Machine Operator on 01-11-2011 Albumin [Mass/Vol] 4.5 g/dL Normal 3.5-5.5 [facility] Internal Medicine Work Phone: Comment on above: PATIENT NOT FASTINGP ERFORMED BY: CB [facility] Ufxrgk2537 [address] RoadDublin [place] [id number] Albumin/Globulin [Mass ratio] 2.0 {ratio} Normal 1.1-2.5 [facility] Work Phone: Comment on above: PATIENT NOT FASTINGP ERFORMED BY: CB [facility] Delumr3317 [address] RoadDublin [place] [id number] ALP [Catalytic activity/Vol] 57 [iU]/L Normal 25-150 [facility] Work Phone: Comment on above: PATIENT NOT FASTINGP ERFORMED BY: CB [facility] Tfuygn9312 [address] RoadDublin [place] [id number] ALT [Catalytic activity/Vol] 17 [iU]/L Normal 0-40 [facility] Work Phone: Comment on above: PATIENT NOT FASTINGP ERFORMED BY: CB [facility] Mdgiim5344 [address] RoadDublin [place] [id number] AST [Catalytic activity/Vol] 13 [iU]/L Normal 0-40 [facility] Work Phone: Comment on above: PATIENT NOT FASTINGP ERFORMED BY: CB [facility] Etfbwr4842 [address] RoadDublin [place] [id number] Bilirubin [Mass/Vol] 0.3 mg/dL Normal 0.0-1.2 Comp [facility] Internal Medicine Work Phone: Comment on above: PATIENT NOT FASTINGP ERFORMED BY: CB [facility] Qqvyex9630 [address] RoadDublin [place] [id number] Calcium [Mass/Vol] 9.5 mg/dL Normal 8.7-10.2 [facility] Internal Medicine Work Phone: Comment on above: PATIENT NOT FASTINGP ERFORMED BY: CB [facility] Yeznvk0388 [address] RoadDublin [place] [id number] Chloride [Moles/Vol] 110 mmol/L Abnormal 97-108 Comp rehensive Internal Medicine Work Phone: Comment on above: PATIENT NOT FASTINGP ERFORMED BY: CB [facility] Pybdbf6591 [address] RoadDublin [place] [id number] CO2 [Moles/Vol] 20 mmol/L Normal 20-32 Comprehen sive Internal Medicine Work Phone: Comment on above: PATIENT NOT FASTINGP ERFORMED BY: CB [facility] Qpjfvm9140 [address] RoadDublin [place] [id number] Creatinine [Mass/Vol] 0.79 mg/dL Normal 0.57-1.00 [facility] Internal Medicine Work Phone: Comment on above: PATIENT NOT FASTINGP ERFORMED BY: CB [facility] Ekdtkn2482 [address] RoadDublin [place] [id number] GFR/1.73 sq M predicted among blacks MDRD (S/P/Bld) [Vol rate/Area] 111 mL/min/{1.73_m2} Normal [facility] Internal [facility] Work Phone: Comment on above: Note: A persistent e GFR <60 mL/min/1.73 m2 (3 months or more) mayindicate chronic kidney disease. An eGFR >59 mL/min/1.73 m2 with anelevated urine protein also may indicate chronic kidney disease.Calculated using CKD-EPI formula. PATIENT NOT FASTINGP ERFORMED BY: CB [facility] Jsufdd8038 [address] RoadDublin [place] [id number] GFR/1.73 sq M predicted among non-blacks CKD-EPI (S/P/Bld) [Vol rate/Area] 97 mL/min/1.73 Normal [facility] Work Phone: Comment on above: PATIENT NOT FASTINGP ERFORMED BY: CB [facility] Llofbp6445 [address] RoadDublin [place] [id number] Globulin (S) [Mass/Vol] 2.2 g/dL Normal 1.5-4.5 [facility] Internal Medicine Work Phone: Comment on above: PATIENT NOT FASTINGP ERFORMED BY: RASHEED LabCokate Pngocj4267 [address] [facility] Hospitalblin [place] [id number] Glucose [Mass/Vol] 87 mg/dL Normal 65-99 [facility] Internal Medicine Work Phone: Comment on above: PATIENT NOT FASTINGP ERFORMED BY: RASHEED LabCokate CastanedaUpwdih6935 [facility] [id number] Potassium [Moles/Vol] 4.6 mmol/L Normal 3.5-5.[address] [facility] Work Phone: Comment on above: PATIENT NOT FASTINGP ERFORMED BY: RASHEED LabMarybel CastanedaEnddym1933 [address] [facility] [id number] Protein [Mass/Vol] 6.7 g/dL Normal 6.0-8.5 [facility] Internal Medicine Work Phone: Comment on above: PATIENT NOT FASTINGP ERFORMED BY: RASHEED LabMarybel CastanedaOvcybt9296 [facility] [id number] Sodium [Moles/Vol] 143 mmol/L Normal 135-145 [facility] Internal Medicine Work Phone: Comment on above: PATIENT NOT FASTINGP ERFORMED BY: RASHEED Castanedalin6370 [facility] [id number] Urea nitrogen [Mass/Vol] 14 mg/dL Normal 6-20 [facility] Internal Medicine Work Phone: Comment on above: PATIENT NOT FASTINGP ERFORMED BY: RASHEED [facility] Pnxwyr3030 [address] [facility]in [place] [id number] Urea nitrogen/Creatinine [Mass ratio] 18 mg/mg Normal 8-20 [facility] Internal Medicine Work Phone: Comment on above: PATIENT NOT FASTINGP ERFORMED BY: RASHEED LabMarybel Fwovot6997 [address] [facility]in [place] [id number] RHEUMATOID FACTOR-QUANT (941 83)Ordered By: Die Sinking Machine Operator on 01-11-2011 Rheumatoid factor Qn 1.5 {IU/mL} Normal 0.0-13.9 [facility] prehensive Internal Medicine Work Phone: Comment on above: PATIENT NOT FASTINGP ERFORMED BY: RASHEED Fish Nature Vbmpyy8325 [facility] [id number] Sed Rate Erythrocyte ([id number]) Ordered By: Die Sinking Machine Operator on 01-11-2011 ESR (Bld) [Velocity] 2 mm/h Normal 0-20 Comp rehensive Internal Medicine Work Phone: Comment on above: PATIENT NOT FASTINGP ERFORMED BY: DonHenry [facility] Hospital6370 [facility] [id number] CALCIFIDIOL (83303) VIT D 25 Ordered By: Die Sinking Machine Operator on 10-11-2010 Calcitriol [Mass/Vol] 17.3 ng/mL Abnormal 32.0-100.0 [facility] prehensive Internal Medicine Work Phone: Comment on above: Recent studies consi karen the lower limit of 32.0 ng/mL to be athreshold for optimal health.John SHULTZ. J Nutr. 2004;135(2):317-22. PATIENT NOT FASTINGP ERFORMED BY: Fish NatureKessler Institute for RehabilitationYlhngr0438 [facility] [id number] CARCINOEMBRYONIC ANTIGEN (CE A) (00357)Ordered By: Die Sinking Machine Operator on 10-11-2010 Carcinoembryonic Ag [Mass/Vol] 3.4 ng/mL Normal 0.0-4.7 [facility] Work Phone: Comment on above: Merlin ECLIA methodol ogy Nonsmokers <3.9 Smokers <5.6 PATIENT NOT FASTINGP ERFORMED BY: Fish NatureKessler Institute for RehabilitationDtokvr7376 [facility] [id number] CBC with manual diff ([id number]) Ordered By: Die Sinking Machine Operator on 10-11-2010 Basophils (Bld) [#/Vol] 0.0 {x10E3/uL} Normal 0.0-0.2 [facility] Work Phone: Comment on above: PATIENT NOT FASTINGP ERFORMED BY: Fish Nature Jtwomn8724 [facility] [id number] Basophils/100 WBC (Bld) 0 % Normal 0-3 [facility] Work Phone: Comment on above: PATIENT NOT FASTINGP ERFORMED BY: CB [facility] Autswp7812 [address] RoadDublin [place] [id number] Eosinophils (Bld) [#/Vol] 0.2 {x10E3/uL} Normal 0.0-0.4 [facility] Work Phone: Comment on above: PATIENT NOT FASTINGP ERFORMED BY: CB [facility] Iscaao6975 [address] RoadDublin [place] [id number] Eosinophils/100 WBC (Bld) 2 % Normal 0-7 [facility] Work Phone: Comment on above: PATIENT NOT FASTINGP ERFORMED BY: CB [facility] Pmsttr6992 [address] [facility]Critical access hospital [id number] Erythrocyte distribution width (RBC) [Ratio] 13.1 % Normal 11.7-15.0 [facility] Work Phone: Comment on above: PATIENT NOT FASTINGP ERFORMED BY: CB [facility] Lozwue2204 [address] RoadNovant Health Charlotte Orthopaedic Hospitalin [place] [id number] Hematocrit (Bld) [Volume fraction] 40.6 % Normal 34.0-44.0 [facility] Work Phone: Comment on above: PATIENT NOT FASTINGP ERFORMED BY: CB [facility] Uoqaue1068 [address] Roadblin [place] [id number] Hemoglobin (Bld) [Mass/Vol] 13.5 g/dL Normal 11.5-15.0 [facility] Work Phone: Comment on above: PATIENT NOT FASTINGP ERFORMED BY: CB [facility] Alqufu1019 [address] RoadDublin [place] [id number] Immature granulocytes (Bld) [#/Vol] 0.0 {x10E3/uL} Normal 0.0-0.1 [facility] Work Phone: Comment on above: PATIENT NOT FASTINGP ERFORMED BY: CB [facility] Moghwn1077 [address] RoadDublin [place] [id number] Immature granulocytes/100 WBC (Bld) 0 % Normal 0-1 [facility] Work Phone: Comment on above: PATIENT NOT FASTINGP ERFORMED BY: CB [facility] Srepmp5138 [address] RoadDublin [place] [id number] Lymphocytes (Bld) [#/Vol] 3.1 {x10E3/uL} Normal 0.7-4.5 [facility] Work Phone: Comment on above: PATIENT NOT FASTINGP ERFORMED BY: CB [facility] Ukdtvq5488 [address] RoadDublin [place] [id number] Lymphocytes/100 WBC (Bld) 26 % Normal 14-46 [facility] Work Phone: Comment on above: PATIENT NOT FASTINGP ERFORMED BY: CB [facility] Zngvmr8329 [address] RoadD[address] [place] [id number] MCH (RBC) [Entitic mass] 30.5 pg Normal 27.0-34.0 [facility] Work Phone: Comment on above: PATIENT NOT FASTINGP ERFORMED BY: CB [facility] Oeccrd2008 [address] Roadblin [place] [id number] MCHC (RBC) [Mass/Vol] 33.3 g/dL Normal 32.0-36.0 [facility] Internal Medicine Work Phone: Comment on above: PATIENT NOT FASTINGP ERFORMED BY: RASHEED [facility] Gpulvq7545 [address] RoadDublin [place] [id number] MCV (RBC) [Entitic vol] 92 fL Normal 80-98 [facility] Work Phone: Comment on above: PATIENT NOT FASTINGP ERFORMED BY: CB [facility] Nsobgt3411 [address] RoadD[address] [place] [id number] Monocytes (Bld) [#/Vol] 1.0 {x10E3/uL} Normal 0.1-1.0 [facility] Work Phone: Comment on above: PATIENT NOT FASTINGP ERFORMED BY: CB [facility] Lgdpdg6567 [address] RoadDublin [place] [id number] Monocytes/100 WBC (Bld) 8 % Normal 4-13 [facility] Work Phone: Comment on above: PATIENT NOT FASTINGP ERFORMED BY: CB [facility] Hyaaic5938 [address] RoadD[address] [place] [id number] Neutrophils (Bld) [#/Vol] 7.8 {x10E3/uL} Normal 1.8-7.8 [facility] Work Phone: Comment on above: PATIENT NOT FASTINGP ERFORMED BY: CB [facility] Bmddww2960 [address] [place] [id number] Neutrophils/100 WBC (Bld) 64 % Normal 40-74 [facility] Work Phone: Comment on above: PATIENT NOT FASTINGP ERFORMED BY: CB [facility] Scfirw7581 [address] RoadD[address] [place] [id number] Platelets (Bld) [#/Vol] 240 {x10E3/uL} Normal 140-415 [facility] Work Phone: Comment on above: PATIENT NOT FASTINGP ERFORMED BY: CB [facility] Arqmtl2994 [address] RoadD[address] [place] [id number] RBC (Bld) [#/Vol] 4.42 {x10E6/uL} Normal 3.80-5.10 [facility] Internal Medicine Work Phone: Comment on above: PATIENT NOT FASTINGP ERFORMED BY: CB [facility] Hcsppt7156 [address] RoadDublin [place] [id number] WBC (Bld) [#/Vol] 12.3 {x10E3/uL} Abnormal 4.0-10.5 [facility] Internal Medicine Work Phone: Comment on above: PATIENT NOT FASTINGP ERFORMED BY: CB [facility] Hwrozi7162 [address] RoadDublin [place] [id number] Metabolic Panel, Comprehensi ve ([id number])Ordered By: Die Sinking Machine Operator on 10-11-2010 Albumin [Mass/Vol] 4.2 g/dL Normal 3.5-5.5 [facility] Internal Medicine Work Phone: Comment on above: PATIENT NOT FASTINGP ERFORMED BY: CB [facility] Tfuwdp6879 [address] RoadD[address] [place] [id number] Albumin/Globulin [Mass ratio] 1.8 {ratio} Normal 1.1-2.5 [facility] Work Phone: Comment on above: PATIENT NOT FASTINGP ERFORMED BY: CB [facility] Hhpxqg3682 [address] RoadDublin [place] [id number] ALP [Catalytic activity/Vol] 70 [iU]/L Normal 25-150 [facility] Work Phone: Comment on above: PATIENT NOT FASTINGP ERFORMED BY: CB [facility] Tkemvt4235 [address] RoadDublin [place] [id number] ALT [Catalytic activity/Vol] 10 [iU]/L Normal 0-40 [facility] Work Phone: Comment on above: PATIENT NOT FASTINGP ERFORMED BY: CB [facility] Imzgsy8141 [address] RoadDublin [place] [id number] AST [Catalytic activity/Vol] 12 [iU]/L Normal 0-40 [facility] Work Phone: Comment on above: PATIENT NOT FASTINGP ERFORMED BY: CB [facility] Bhcrhc9366 [address] RoadD[address] [place] [id number] Bilirubin [Mass/Vol] 0.3 mg/dL Normal 0.0-1.2 Comp rehensive Internal Medicine Work Phone: Comment on above: PATIENT NOT FASTINGP ERFORMED BY: [facility] Xtaxgi7663 [address] RoadDublin [place] [id number] Calcium [Mass/Vol] 9.4 mg/dL Normal 8.7-10.2 [facility] Internal Medicine Work Phone: Comment on above: PATIENT NOT FASTINGP ERFORMED BY: CB [facility] Afdxrm5502 [address] RoadDublin [place] [id number] Chloride [Moles/Vol] 108 mmol/L Normal 97-108 [facility]ensive [facility] Work Phone: Comment on above: PATIENT NOT FASTINGP ERFORMED BY: CB [facility] Fdkubf1569 [address] RoadDublin [place] [id number] CO2 [Moles/Vol] 23 mmol/L Normal 20-32 Comprehen [facility] Internal Medicine Work Phone: Comment on above: PATIENT NOT FASTINGP ERFORMED BY: RASHEED [facility] Kdukbr9706 [address] [facility]blin [place] [id number] Creatinine [Mass/Vol] 0.65 mg/dL Normal 0.57-1.00 [facility] Internal Medicine Work Phone: Comment on above: PATIENT NOT FASTINGP ERFORMED BY: CB [facility] Wcrbjv8707 [facility] [id number] GFR/1.73 sq M predicted among blacks MDRD (S/P/Bld) [Vol rate/Area] mL/min/{1.73_m2} Normal [facility] Internal Medicine Work Phone: Comment on above: Note: Persistent red uction for 3 months or more in an eGFR<60 mL/min/1.73 m2 defines CKD. Patients with eGFR values>/=60 mL/min/1.73 m2 may also have CKD if evidence of persistentproteinuria is present. Additional information may be found [email or web address]. PATIENT NOT FASTINGP ERFORMED BY: RASHEED [facility] Nhwgbc9528 [facility] [id number] GFR/1.73 sq M.predicted MDRD (S/P/Bld) [Vol rate/Area] mL/min/{1.73_m2} Normal [facility] Internal Medicine Work Phone: Comment on above: PATIENT NOT FASTINGP ERFORMED BY: CB [facility] Hhkxrs6718 [facility] [id number] Globulin (S) [Mass/Vol] 2.3 g/dL Normal 1.5-4.5 [facility] Internal Medicine Work Phone: Comment on above: PATIENT NOT FASTINGP ERFORMED BY: CB [facility] Rcgbhd3299 [facility] [id number] Glucose [Mass/Vol] 85 mg/dL Normal 65-99 [facility] Internal Medicine Work Phone: Comment on above: PATIENT NOT FASTINGP ERFORMED BY: CB [facility] Mlmzsf6099 [address] [facility] [id number] Potassium [Moles/Vol] 4.6 mmol/L Normal 3.5-5.2 [facility] Internal Medicine Work Phone: Comment on above: PATIENT NOT FASTINGP ERFORMED BY: RASHEED Smith6370 [address] [facility] [id number] Protein [Mass/Vol] 6.5 g/dL Normal 6.0-8.5 [facility] Internal Medicine Work Phone: Comment on above: PATIENT NOT FASTINGP ERFORMED BY: RASHEED [facility] Wpqvge7619 [facility] [id number] Sodium [Moles/Vol] 140 mmol/L Normal 135-145 [facility] Internal Medicine Work Phone: Comment on above: PATIENT NOT FASTINGP ERFORMED BY: RASHEED Storm Xviszk2161 [facility] [id number] Urea nitrogen [Mass/Vol] 14 mg/dL Normal 6-20 [facility] Internal Medicine Work Phone: Comment on above: Please note refere nce interval change PATIENT NOT FASTINGP ERFORMED BY: RASHEED [facility] Jwrndk0972 [facility] [id number] Urea nitrogen/Creatinine [Mass ratio] 22 mg/mg Abnormal 8-20 [facility] Internal Medicine Work Phone: Comment on above: Please note refere nce interval change PATIENT NOT FASTINGP ERFORMED BY: RASHEED [facility] Fjsrmw6231 [facility] [id number] T3, FREE (TRIDOTHYRONINE) (0 4510)Ordered By: Die Sinking Machine Operator on 10-11-2010 Free T3 [Mass/Vol] 2.8 pg/mL Normal 2.0-4.4 [facility] Internal Medicine Work Phone: Comment on above: PATIENT NOT FASTINGP ERFORMED BY: RASHEED [facility] Hlgpvd9319 [facility] [place] [id number] T4, FREE (THYROXINE) ([id number]) Ordered By: Die Sinking Machine Operator on 10-11-2010 Free T4 [Mass/Vol] 1.28 ng/dL Normal 0.82-1.77 [facility] Internal Medicine Work Phone: Comment on above: PATIENT NOT FASTINGP ERFORMED BY: [facility] Fbmgyu8367 [facility] [id number] TSH ([id number])Ordered By: Leti rEvin on 10-11-2010 TSH Qn 0.892 {uIU/mL} Normal 0.450-4.500 [facility] Internal Medicine Work Phone: Comment on above: PATIENT NOT FASTINGP ERFORMED BY: [facility] Omaeij8816 [facility] [id number] CBC with manual diff ([id number]) Ordered By: Taty Brown on 06-04-2008 Basophils (Bld) [#/Vol] 0.0 {x10E3/uL} Normal 0.0-0.2 [facility] Work Phone: Comment on above: PATIENT WAS FASTINGC linical Information: ADD DRAW FEE [id number] ADD J [id number] PERFORMED BY: LabCoKessler Institute for RehabilitationTwttmd2824 [facility] [id number] Basophils/100 WBC (Bld) 0 % Normal 0-3 [facility] Work Phone: Comment on above: PATIENT WAS FASTINGC linical Information: ADD DRAW FEE [id number] ADD J 39673 PERFORMED BY: LabCoKessler Institute for RehabilitationFpiajr8142 [facility] [id number] Eosinophils (Bld) [#/Vol] 0.2 {x10E3/uL} Normal 0.0-0.4 [facility] Work Phone: Comment on above: PATIENT WAS FASTINGC linical Information: ADD DRAW FEE [id number] ADD J 65315 PERFORMED BY: [facility] Fbznjw5581 [facility] [id number] Eosinophils/100 WBC (Bld) 2 % Normal 0-7 [facility] Work Phone: Comment on above: PATIENT WAS FASTINGC linical Information: ADD DRAW FEE [id number] ADD J 07557 PERFORMED BY: [facility] Ccphmu6737 [facility] [id number] Erythrocyte distribution width (RBC) [Ratio] 13.5 % Normal 11.7-15.0 [facility] Work Phone: Comment on above: PATIENT WAS FASTINGC linical Information: ADD DRAW FEE [id number] ADD J 36206 PERFORMED BY: RASHEED Virtual CommandStacey [place] 6284970 [facility] [id number] Hematocrit (Bld) [Volume fraction] 42.2 % Normal 34.0-44.0 [facility] Work Phone: Comment on above: PATIENT WAS FASTINGC linical Information: ADD DRAW FEE [id number] ADD J 81151 PERFORMED BY: [employer] [id number] Hemoglobin (Bld) [Mass/Vol] 14.4 g/dL Normal 11.5-15.0 [facility] Work Phone: Comment on above: PATIENT WAS FASTINGC linical Information: ADD DRAW FEE [id number] ADD J 98223 PERFORMED BY: [address] [id number] Lymphocytes (Bld) [#/Vol] 2.2 {x10E3/uL} Normal 0.7-4.5 [facility] Work Phone: Comment on above: PATIENT WAS FASTINGC linical Information: ADD DRAW FEE [id number] ADD J 67923 PERFORMED BY: RASHEED [employer] [id number] Lymphocytes/100 WBC (Bld) 23 % Normal 14-46 [facility] Work Phone: Comment on above: PATIENT WAS FASTINGC linical Information: ADD DRAW FEE [id number] ADD J 72906 PERFORMED BY: [employer] [id number] MCH (RBC) [Entitic mass] 30.6 pg Normal 27.0-34.0 [facility] Work Phone: Comment on above: PATIENT WAS FASTINGC linical Information: ADD DRAW FEE [id number] ADD J [id number] PERFORMED BY: Lab[address] [id number] MCHC (RBC) [Mass/Vol] 34.0 g/dL Normal 32.0-36.0 [facility] Work Phone: Comment on above: PATIENT WAS FASTINGC linical Information: ADD DRAW FEE [id number] ADD J PERFORMED BY: RASHEED [facility]6370 [facility] [id number] MCV (RBC) [Entitic vol] 90 fL Normal 80-98 [facility] Work Phone: Comment on above: PATIENT WAS FASTINGC linical Information: ADD DRAW FEE [id number] ADD J [id number] PERFORMED BY: [address] [id number] Monocytes (Bld) [#/Vol] 0.3 {x10E3/uL} Normal 0.1-1.0 [facility] Internal Medicine Work Phone: Comment on above: PATIENT WAS FASTINGC linical Information: ADD DRAW FEE [id number] ADD J PERFORMED BY: RASHEED [place] [id number] [facility] [id number] Monocytes/100 WBC (Bld) 3 % Abnormal 4-13 [facility] Work Phone: Comment on above: PATIENT WAS FASTINGC linical Information: ADD DRAW FEE [id number] ADD J PERFORMED BY: [place] [id number] [facility] [id number] Neutrophils (Bld) [#/Vol] 6.8 {x10E3/uL} Normal 1.8-7.8 [facility] Work Phone: Comment on above: PATIENT WAS FASTINGC linical Information: ADD DRAW FEE [id number] ADD J [id number] [facility]FORMED [facility]: [facility]6370 [facility] [id number] Neutrophils/100 WBC (Bld) 72 % Normal 40-74 [facility] Work Phone: Comment on above: PATIENT WAS FASTINGC linical Information: ADD DRAW FEE [id number] ADD J [id number] PERFORMED BY: LabStacey [place] [id number] [facility] [id number] Platelets (Bld) [#/Vol] 249 {x10E3/uL} Normal 140-415 [facility] Work Phone: Comment on above: PATIENT WAS FASTINGC linical Information: ADD DRAW FEE [id number] ADD J [id number] PERFORMED BY: RASHEED Fish NatureKessler Institute for RehabilitationRqxrek2928 [facility] [id number] RBC (Bld) [#/Vol] 4.70 {x10E6/uL} Normal 3.80-5.10 [facility] Internal Medicine Work Phone: Comment on above: PATIENT WAS FASTINGC linical Information: ADD DRAW FEE [id number] ADD J [id number] PERFORMED BY: RASHEED [facility]Henry [facility] Hospital6370 [facility] [id number] WBC (Bld) [#/Vol] 9.4 {x10E3/uL} Normal 4.0-10.5 [facility] Internal Medicine Work Phone: Comment on above: PATIENT WAS FASTINGC linical Information: ADD DRAW FEE [id number] ADD J [id number] PERFORMED BY: ARSHEED [facility] CommandHenry [facility] Hospital6370 [facility] [id number] Lipid Panel ([id number])Ordered B y: Taty Brown on 06-04-2008 Cholesterol [Mass/Vol] 137 mg/dL Normal 100-199 [facility] Work Phone: Comment on above: PATIENT WAS FASTINGP ERFORMED BY: RASHEED [facility]6370 [facility] [id number] Cholesterol in HDL [Mass/Vol] 38 mg/dL Abnormal 40-59 [facility] Work Phone: Comment on above: PATIENT WAS FASTINGP ERFORMED BY: Fish NatureKessler Institute for RehabilitationBhmdvp2118 [facility] [id number] Cholesterol in LDL [Mass/Vol] 85 mg/dL Normal 0-99 [facility] Work Phone: Comment on above: PATIENT WAS FASTINGP ERFORMED BY: [facility] HospitalInnovative Spinal TechnologiesKessler Institute for RehabilitationAttaqn1599 [facility] [id number] Cholesterol in LDL/Cholesterol in HDL [Mass ratio] 2.2 {ratio_units} Normal 0.0-3.2 [facility] Work Phone: Comment on above: PATIENT WAS FASTINGP ERFORMED BY: RASHEED [facility] Djmasw9860 [address] [place] [id number] Cholesterol in VLDL [Mass/Vol] 14 mg/dL Normal 5-40 [facility] Work Phone: Comment on above: PATIENT WAS FASTINGP ERFORMED BY: RASHEED [facility] Vqyepw1942 [address] RoadDublin [place] [id number] Triglyceride [Mass/Vol] 68 mg/dL Normal 0-149 [facility] Work Phone: Comment on above: PATIENT WAS FASTINGP ERFORMED BY: RASHEED [facility] Aiwkap9152 [address] RoadDublin [place] [id number] Metabolic Panel, Comprehensi ve ([id number])Ordered By: Taty Brown on 06-04-2008 Albumin [Mass/Vol] 4.7 g/dL Normal 3.5-5.5 [facility] Internal Medicine Work Phone: Comment on above: PATIENT WAS FASTINGP ERFORMED BY: RASHEED [facility] Mqstab1348 [address] RoadDublin [place] [id number] Albumin/Globulin [Mass ratio] 1.7 {ratio} Normal 1.1-2.5 [facility] Work Phone: Comment on above: PATIENT WAS FASTINGP ERFORMED BY: RASHEED [facility] Hwznvi9189 [address] RoadDublin [place] [id number] ALP [Catalytic activity/Vol] 72 [iU]/L Normal 25-150 [facility] Work Phone: Comment on above: PATIENT WAS FASTINGP ERFORMED BY: RASHEED [facility] Rzctjn0550 [address] RoadDublin [place] [id number] ALT [Catalytic activity/Vol] 10 [iU]/L Normal 0-40 [facility] Work Phone: Comment on above: PATIENT WAS FASTINGP ERFORMED BY: RASHEED [facility] Vlyuzp4560 [address] RoadDublin [place] [id number] AST [Catalytic activity/Vol] 13 [iU]/L Normal 0-40 [facility] Work Phone: Comment on above: PATIENT WAS FASTINGP ERFORMED BY: [facility] Hipvqm2849 [place] [facility] [id number] Bilirubin [Mass/Vol] 0.7 mg/dL Normal 0.1-1.2 [facility] Work Phone: Comment on above: PATIENT WAS FASTINGP ERFORMED BY: CB [facility] Vbaqhi3745 [address] [facility] [id number] Calcium [Mass/Vol] 10.0 mg/dL Normal 8.5-10.6 [facility] Internal Medicine Work Phone: Comment on above: PATIENT WAS FASTINGP ERFORMED BY: [facility] Nhincn7332 [place] [facility] [id number] Chloride [Moles/Vol] 109 mmol/L Abnormal 97-108 [facility] Internal Medicine Work Phone: Comment on above: PATIENT WAS FASTINGP ERFORMED BY: CB [facility] Cslttc4960 [place] [facility] [id number] CO2 [Moles/Vol] 20 mmol/L Normal 20-32 [facility] Internal Medicine Work Phone: Comment on above: PATIENT WAS FASTINGP ERFORMED BY: [facility] Psydig8007 [facility] [id number] Creatinine [Mass/Vol] 0.70 mg/dL Normal 0.57-1.00 [facility] Internal Medicine Work Phone: Comment on above: PATIENT WAS FASTINGP ERFORMED BY: [facility] Ucolmp2864 [facility] [id number] GFR/1.73 sq M predicted among blacks MDRD (S/P/Bld) [Vol rate/Area] mL/min/{1.73_m2} Normal 60-128 [facility] Internal Medicine Work Phone: Comment on above: Note: Persistent red uction for 3 months or more in an eGFR<60 mL/min/1.73 m2 defines CKD. Patients with eGFR values>/=60 mL/min/1.73 m2 may also have CKD if evidence of persistentproteinuria is present. Additional information may be found [email or web address]. PATIENT WAS FASTINGP ERFORMED BY: RASHEED LabCoKessler Institute for RehabilitationGqikhk2284 [facility] [id number] GFR/1.73 sq M.predicted MDRD (S/P/Bld) [Vol rate/Area] mL/min/{1.73_m2} Normal 60-128 [facility] Internal Medicine Work Phone: Comment on above: PATIENT WAS FASTINGP ERFORMED BY: [facility] Jqschy2465 [facility] [id number] Globulin (S) [Mass/Vol] 2.7 g/dL Normal 1.5-4.5 [facility] Internal Medicine Work Phone: Comment on above: PATIENT WAS FASTINGP ERFORMED BY: [facility] Yrnwcq9540 [facility] [id number] Glucose [Mass/Vol] 111 mg/dL Abnormal 65-99 [facility] Internal Medicine Work Phone: Comment on above: PATIENT WAS FASTINGP ERFORMED BY: [facility] Eyypea9584 [facility] [id number] Potassium [Moles/Vol] 4.3 mmol/L Normal 3.5-5.2 [facility] Internal Medicine Work Phone: Comment on above: PATIENT WAS FASTINGP ERFORMED BY: [facility] Rgjlgz4593 [facility] [id number] Protein [Mass/Vol] 7.4 g/dL Normal 6.0-8.5 [facility] Internal Medicine Work Phone: Comment on above: PATIENT WAS FASTINGP ERFORMED BY: [facility] Ekpkto0155 [place] [facility] [id number] Sodium [Moles/Vol] 141 mmol/L Normal 135-145 [facility] Internal Medicine Work Phone: Comment on above: PATIENT WAS FASTINGP ERFORMED BY: [facility] Tofgmz8035 [facility] [id number] Urea nitrogen [Mass/Vol] 11 mg/dL Normal 5-26 [facility] Work Phone: Comment on above: PATIENT WAS FASTINGP ERFORMED BY: [employer]6370 [facility] [id number] Urea nitrogen/Creatinine [Mass ratio] 16 mg/mg Normal 8-27 [facility] Work Phone: Comment on above: PATIENT WAS FASTINGP ERFORMED BY: [employer]6370 [facility] [id number] Urinalysis, Office ([id number])Or dered By: Rola Oropeza on 08-15-2006 Bilirubin Ql (U) Small Normal Comprehe nsive Internal Medicine Work Phone: Glucose Test strip (U) [Mass/Vol] Negative Normal [facility] Work Phone: Hemoglobin Ql (U) Non Hemolyzed Trace Normal [facility] Work Phone: Ketones Ql (U) Small Normal Comprehens es[facility] Work Phone: Leukocyte esterase Test strip Ql (U) Small Normal [facility] Work Phone: Nitrite Ql (U) Positive Normal [facility] Work Phone: pH (U) 6.0 [pH] Normal [facility] Work Phone: Protein Ql (U) 30 mg/dL Normal [facility] Work Phone: Specific gravity (U) [Rel density] 1.025 1 Normal [facility] Work Phone: Comment on above: SG 1.030 Urobilinogen (24H U) [Mass/Time] Normal Normal [facility] Work Phone: Vital Signs Date Time Vital Sign Value Performing Clinician Facility 04-14-2025 11:19-040 Body height 162.[address] Mariza You MD Work Phone: [facility] 04-14-2025 11:19-0400 Body mass index (BMI) [Ratio] 21.2 kg/m2 Dr. Mariza You MD Work Phone: [facility] 04-14-2025 11:19-0400 Body temperature 97.6 [degF] Dr. Mariza You MD Work Phone: [facility] 04-14-2025 11:19-0400 Body weight 56.[address] Mariza You MD Work Phone: [facility] 04-14-2025 11:19-0400 Diastolic blood pressure 48 mm[Hg] Dr. Mariza You MD Work Phone: [facility] 04-14-2025 11:19-0400 Heart rate 71 /min Dr. Mariza You MD Work Phone: [facility] 04-14-2025 11:19-0400 Respiratory rate 16 /min Dr. Mariza You MD Work Phone: [facility] 04-14-2025 11:19-0400 SaO2% (BldA) [Mass fraction] 98 % Dr. Mariza You MD Work Phone: [facility] 04-14-2025 11:19-0400 Systolic blood pressure 102 mm[Hg] Dr. Mariza You MD Work Phone: [facility] 12-20-2024 14:25-0400 Body height 162.[address] Mariza You MD Work Phone: [facility] 12-20-2024 14:25-0400 Body mass index (BMI) [Ratio] 21.8 kg/m2 Dr. Mariza You MD Work Phone: [facility] 12-20-2024 14:25-0400 Body temperature 98.9 [degF] Dr. Mariza You MD Work Phone: [facility] 12-20-2024 14:25-0400 Body weight 57.[address] Mariza You MD Work Phone: [facility] 12-20-2024 14:25-0400 Diastolic blood pressure 58 mm[Hg] Dr. Mariza You MD Work Phone: [facility] 12-20-2024 14:25-0400 Heart rate 83 /min Dr. Mariza You MD Work Phone: [facility] 12-20-2024 14:25-0400 Respiratory rate 16 /min Dr. Mariza You MD Work Phone: [facility] 12-20-2024 14:25-0400 SaO2% (BldA) [Mass fraction] 83 % Dr. Mariza You MD Work Phone: [facility] 12-20-2024 14:25-0400 Systolic blood pressure 108 mm[Hg] Dr. Mariza You MD Work Phone: [facility] 11-07-2023 10:46-0500 Body height 162.[address] Naveen Cueto Work Phone: [facility] 11-07-2023 10:46-0500 Body mass index (BMI) [Ratio] 28.3 kg/m2 Dr. Naveen Cueto Work Phone: [facility] 11-07-2023 10:46-0500 Body temperature 97.6 [degF] Dr. Naveen Cueto Work Phone: [facility] 11-07-2023 10:46-0500 Body weight 74.[address] Naveen Cueto Work Phone: [facility] 11-07-2023 10:46-0500 Diastolic blood pressure 74 mm[Hg] Dr. Naveen Cueto Work Phone: [facility] 11-07-2023 10:46-0500 Heart rate 90 /min Dr. Naveen Cueto Work Phone: [facility] 11-07-2023 10:46-0500 Respiratory rate 16 /min Dr. Naveen Cueto Work Phone: [facility] 11-07-2023 10:46-0500 SaO2% (BldA) [Mass fraction] 99 % Dr. Navene Cueto Work Phone: [facility] 11-07-2023 10:46-0500 Systolic blood pressure 124 mm[Hg] Dr. Naveen Cueto Work Phone: [facility] 01-17-2022 16:21-0400 Body temperature 98.4 [degF] Dr. Naveen Cueto Work Phone: [facility] Work Phone: 01-17-2022 16:21-0400 Diastolic blood pressure 75 mm[Hg] Dr. Naveen Cueto Work Phone: [facility] Work Phone: 01-17-2022 16:21-0400 Heart rate 64 /min Dr. Naveen Cueto Work Phone: [facility] Work Phone: 01-17-2022 16:21-0400 Respiratory rate 16 /min Dr. Naveen Cueto Work Phone: [facility] Work Phone: 01-17-2022 16:21-0400 SaO2% (BldA) [Mass fraction] 96 % Dr. Naveen Cueto Work Phone: [facility] Work Phone: 01-17-2022 16:21-0400 Systolic blood pressure 154 mm[Hg] Dr. Naveen Cueto Work Phone: [facility] Work Phone: 01-17-2022 10:45-0400 Body height 162.[address] Naveen Cueto Work Phone: [facility] Work Phone: 01-17-2022 10:45-0400 Body mass index (BMI) [Ratio] 29.2 kg/m2 Dr. Naveen Cueto Work Phone: [facility] Work Phone: 01-17-2022 10:45-0400 Body weight 77.[address] Naveen Cueto Work Phone: [facility] Work Phone: 01-13-2022 09:40-0400 Body mass index (BMI) [Ratio] 28.5 kg/m2 Dr. Naveen Cueto Work Phone: [facility] Work Phone: 01-13-2022 09:40-0400 Body weight 75.[address] Naveen Cueto Work Phone: [facility] Work Phone: 01-13-2022 09:40-0400 Diastolic blood pressure 79 mm[Hg] Dr. Naveen Cueto Work Phone: [facility] Work Phone: 01-13-2022 09:40-0400 Respiratory rate 16 /min Dr. Naveen Cueto Work Phone: [facility] Work Phone: 01-13-2022 09:40-0400 Systolic blood pressure 129 mm[Hg] Dr. Naveen Cueto Work Phone: [facility] Work Phone: 01-13-2022 09:40-0400 Body mass index (BMI) [Ratio] 28.5 kg/m2 Dr. Naveen Cueto Work Phone: [facility] Work Phone: 01-13-2022 09:40-0400 Body weight 75.[address] Naveen Cueto Work Phone: [facility] Work Phone: 01-13-2022 09:40-0400 Diastolic blood pressure 79 mm[Hg] Dr. Naveen Cueto Work Phone: [facility] Work Phone: 01-13-2022 09:40-0400 Respiratory rate 16 /min Dr. Naveen Cueto Work Phone: [facility] Work Phone: 01-13-2022 09:40-0400 Systolic blood pressure 129 mm[Hg] Dr. Naveen Cueto Work Phone: [facility] Work Phone: 01-09-2022 03:46-0400 Body height 162.56 cm [facility] Work Phone: 01-09-2022 03:46-0400 Body mass index (BMI) [Ratio] 28.5 kg/m2 [facility] Work Phone: 01-09-2022 03:46-0400 Body temperature 97.5 [degF] [facility] Work Phone: 01-09-2022 03:46-0400 Body weight 75.5 kg [facility] Work Phone: 01-09-2022 03:46-0400 Diastolic blood pressure 88 mm[Hg] [facility] Work Phone: 01-09-2022 03:46-0400 Heart rate 65 /min [facility] Work Phone: 01-09-2022 03:46-0400 Respiratory rate 16 /min [facility] Work Phone: 01-09-2022 03:46-0400 SaO2% (BldA) [Mass fraction] 99 % [facility] Work Phone: 01-09-2022 03:46-0400 Systolic blood pressure 170 mm[Hg] [facility] Work Phone: 03-27-2019 13:24-0400 BMI (Body Mass Index) 29.47 kg/m2 Taty victoria [facility] Medicine Work Phone: 03-27-2019 13:24-0400 Body Temperature 97.8 [degF] Taty Brown [facility] Internal Medicine Work Phone: Comment on above: Method: Temporal 03-27-2019 13:24-0400 Body weight 75.47 kg Taty Brown [facility] Internal Medicine Work Phone: 03-27-2019 13:24-0400 BP Diastolic 80 mm[Hg] Taty Brown [facility] Internal Medicine Work Phone: Comment on above: Patient Position: Sitting; Cuff Location : Left Arm; Cuff Size: Standard 03-27-2019 13:24-0400 BP Systolic 130 mm[Hg] Taty Brown [facility] Internal Medicine Work Phone: Comment on above: Patient Position: Sitting; Cuff Location : Left Arm; Cuff Size: Standard 03-27-2019 13:24-0400 BSA (Body Surface Area) 1.79 m2 Taty Brown [facility] Internal Medicine Work Phone: 03-27-2019 13:24-0400 Height 160.02 cm Taty Brown [facility] Internal Medicine Work Phone: 03-27-2019 13:24-0400 Pulse (Heart Rate) 105 /min Taty Brown [facility] Internal Medicine Work Phone: Comment on above: Pattern: Regular 03-27-2019 13:24-0400 Pulse Oximetry 98 % Taty Bronw [facility] Internal Medicine Work Phone: Comment on above: Room air 03-27-2019 13:24-0400 Respiratory Rate 16 /min Taty Brown [facility] Internal Medicine Work Phone: Comment on above: Pattern: Unlabored 09-20-2017 13:47-0500 BMI (Body Mass Index) 29.47 kg/m2 Taty Brown [facility] Internal Medicine Work Phone: 09-20-2017 13:47-0500 Body Temperature 97.2 [degF] Taty Brown [facility] Internal Medicine Work Phone: 09-20-2017 13:47-0500 Body weight 75.47 kg Taty Brown [facility] Internal Medicine Work Phone: 09-20-2017 13:47-0500 BP Diastolic 82 mm[Hg] Taty Brown [facility] Internal Medicine Work Phone: Comment on above: Patient Position: Sitting; Cuff Location : Left Arm; Cuff Size: Standard 09-20-2017 13:47-0500 BP Systolic 122 mm[Hg] Taty Brown [facility] Internal Medicine Work Phone: Comment on above: Patient Position: Sitting; Cuff Location : Left Arm; Cuff Size: Standard 09-20-2017 13:47-0500 BSA (Body Surface Area) 1.79 m2 Ttay Brown [facility] Internal Medicine Work Phone: 09-20-2017 13:47-0500 Height 160.02 cm Taty Brown [facility] Internal Medicine Work Phone: 09-20-2017 13:47-0500 Pulse (Heart Rate) 76 /min Taty Brown [facility] Internal Medicine Work Phone: Comment on above: Pattern: Regular 09-20-2017 13:47-0500 Pulse Oximetry 100 % Taty Brown [facility] Internal Medicine Work Phone: Comment on above: Room air 09-20-2017 13:47-0500 Respiratory Rate 17 /min Taty Brown [facility] Internal Medicine Work Phone: Comment on above: Pattern: Unlabored 08-25-2017 14:01-0500 BMI (Body Mass Index) 30.1 kg/m2 Taty Brown [facility] Internal Medicine Work Phone: 08-25-2017 14:01-0500 Body Temperature 98.2 [degF] Taty Brown [facility] Internal Medicine Work Phone: 08-25-2017 14:01-0500 Body weight 77.07 kg Taty Brown [facility] Internal Medicine Work Phone: 08-25-2017 14:01-0500 BP Diastolic 68 mm[Hg] Taty Brown [facility] Internal Medicine Work Phone: Comment on above: Patient Position: Sitting; Cuff Location : Left Arm; Cuff Size: Standard 08-25-2017 14:01-0500 BP Systolic 118 mm[Hg] Taty Brown [facility] Internal Medicine Work Phone: Comment on above: Patient Position: Sitting; Cuff Location : Left Arm; Cuff Size: Standard 08-25-2017 14:01-0500 BSA (Body Surface Area) 1.8 m2 Taty Brown [facility] Internal Medicine Work Phone: 08-25-2017 14:-0500 Height 160.02 cm Taty Brown [facility] Internal Medicine Work Phone: 08-25-2017 14:01-0500 Pulse (Heart Rate) 72 /min Taty Brown [facility] Internal Medicine Work Phone: Comment on above: Pattern: Regular 08-25-2017 14:01-0500 Pulse Oximetry 98 % Taty Brown [facility] Internal Medicine Work Phone: Comment on above: Room air 08-25-2017 14:01-0500 Respiratory Rate 16 /min Taty Brown [facility] Internal Medicine Work Phone: Comment on above: Pattern: Unlabored 06-19-2017 13:24-0400 BMI (Body Mass Index) 24.45 kg/m2 Taty Brown [facility] Internal Medicine Work Phone: 06-19-2017 13:24-0400 Body Temperature 98.6 [degF] Taty Brown [facility] Internal Medicine Work Phone: 06-19-2017 13:24-0400 Body weight 62.6 kg Taty Brown [facility] Internal Medicine Work Phone: 06-19-2017 13:24-0400 BP Diastolic 76 mm[Hg] Taty Brown [facility] Internal Medicine Work Phone: Comment on above: Patient Position: Sitting; Cuff Location : Left Arm; Cuff Size: Standard 06-19-2017 13:24-0400 BP Systolic 126 mm[Hg] Taty Brown [facility] Internal Medicine Work Phone: Comment on above: Patient Position: Sitting; Cuff Location : Left Arm; Cuff Size: Standard 06-19-2017 13:24-0400 BSA (Body Surface Area) 1.65 m2 Taty Brown [facility] Internal Medicine Work Phone: 06-19-2017 13:24-0400 Height 160.02 cm Taty Brown [facility] Internal Medicine Work Phone: 06-19-2017 13:24-0400 Pulse (Heart Rate) 80 /min Taty Brown [facility] Internal Medicine Work Phone: Comment on above: Pattern: Regular 06-19-2017 13:24-0400 Pulse Oximetry 97 % Taty Brown [facility] Internal Medicine Work Phone: Comment on above: Room air 06-19-2017 13:24-0400 Respiratory Rate 16 /min Taty Brown [facility] Internal Medicine Work Phone: Comment on above: Pattern: Unlabored 10-12-2016 10:16-0500 BMI (Body Mass Index) 24.45 kg/m2 Taty Brown [facility] Internal Medicine Work Phone: 10-12-2016 10:16-0500 Body Temperature 97.6 [degF] Taty Brown [facility] Medicine Work Phone: 10-12-2016 10:16-0500 Body weight 62.6 kg Taty Brown [facility] Internal Medicine Work Phone: 10-12-2016 10:16-0500 BP Diastolic 78 mm[Hg] Taty Brown [facility] Internal Medicine Work Phone: Comment on above: Patient Position: Sitting; Cuff Location : Left Arm; Cuff Size: Standard 10-12-2016 10:16-0500 BP Systolic 138 mm[Hg] Taty Brown [facility] Medicine Work Phone: Comment on above: Patient Position: Sitting; Cuff Location : Left Arm; Cuff Size: Standard 10-12-2016 10:16-0500 BSA (Body Surface Area) 1.65 m2 Taty Brown [facility] Internal [facility] Work Phone: 10-12-2016 10:16-0500 Height 160.02 cm Taty Brown [facility] Work Phone: 10-12-2016 10:16-0500 Pulse (Heart Rate) 98 /min Taty Brown [facility] Internal Medicine Work Phone: Comment on above: Pattern: Regular 10-12-2016 10:16-0500 Pulse Oximetry 99 % Taty Brown [facility] Work Phone: Comment on above: Room air 10-12-2016 10:16-0500 Respiratory Rate 18 /min Taty Brown [facility] Work Phone: Comment on above: Pattern: Unlabored 11-11-2014 14:42-0500 BMI (Body Mass Index) 28.87 kg/m2 Taty Brown [facility] Work Phone: 11-11-2014 14:42-0500 Body weight 73.94 kg Taty Brown [facility] Work Phone: 11-11-2014 14:42-0500 BP Diastolic 74 mm[Hg] Taty [facility] Work Phone: 11-11-2014 14:42-0500 BP Systolic 112 mm[Hg] Taty [facility] Work Phone: 11-11-2014 14:42-0500 BSA (Body Surface Area) 1.77 m2 Tat[facility] Work Phone: 11-11-2014 14:42-0500 Height 160.02 cm [facility] Work Phone: 11-11-2014 14:42-0500 Pulse (Heart Rate) 68 /min [facility] Work Phone: Comment on above: Pattern: Regular 11-11-2014 14:42-0500 Pulse Oximetry 98 % [facility] Work Phone: Comment on above: Room air 11-11-2014 14:42-0500 Respiratory Rate 18 /min [facility] Work Phone: Comment on above: Pattern: Unlabored 08-08-2012 15:06-0500 BMI (Body Mass Index) 22.68 kg/m2 Taty [facility] Work Phone: 08-08-2012 15:06-0500 Body Temperature 98.2 [degF] Taty Brown [facility] Work Phone: Comment on above: Method: Oral 08-08-2012 15:06-0500 Body weight 59.93 kg Taty Brown [facility] Work Phone: 08-08-2012 15:06-0500 BP Diastolic 74 mm[Hg] Taty Brown [facility] Work Phone: Comment on above: Patient Position: Sitting; Cuff Location : Left Arm; Cuff Size: Standard 08-08-2012 15:06-0500 BP Systolic 110 mm[Hg] Taty Brown [facility] Work Phone: Comment on above: Patient Position: Sitting; Cuff Location : Left Arm; Cuff Size: Standard 08-08-2012 15:06-0500 BSA (Body Surface Area) 1.64 m2 Taty Brown [facility] Work Phone: 08-08-2012 15:06-0500 Height 162.56 cm Taty Brown [facility] Work Phone: 08-08-2012 15:06-0500 Pulse (Heart Rate) 74 /min Taty Brown [facility] Work Phone: Comment on above: Pattern: Regular 08-08-2012 15:06-0500 Pulse Oximetry 98 % Taty Brown [facility] Work Phone: Comment on above: Room air 08-08-2012 15:06-0500 Respiratory Rate 16 /min Taty Brown [facility] Work Phone: Comment on above: Pattern: Unlabored 08-30-2007 09:36-0500 BMI (Body Mass Index) 22.68 kg/m2 Taty Brown [facility] Work Phone: 08-30-2007 09:36-0500 Body Temperature 98.5 [degF] Taty Brown [facility] Work Phone: Comment on above: Method: Oral 08-30-2007 09:36-0500 Body weight 59.93 kg Taty Brown [facility] Work Phone: 08-30-2007 09:36-0500 BP Diastolic 72 mm[Hg] Taty [facility] Work Phone: Comment on above: Patient Position: Sitting; Cuff Location : Left Arm; Cuff Size: Standard 08-30-2007 09:36-0500 BP Systolic 118 mm[Hg] Taty [facility] Work Phone: Comment on above: Patient Position: Sitting; Cuff Location : Left Arm; Cuff Size: Standard 08-30-2007 09:36-0500 BSA (Body Surface Area) 1.64 m2 Taty [facility] Work Phone: 08-30-2007 09:36-0500 Head Circumference 0 cm Taty [facility] Work Phone: 08-30-2007 09:36-0500 Height 162.56 cm Taty [facility] Work Phone: 08-30-2007 09:36-0500 Pulse (Heart Rate) 74 /min Taty Brown [facility] Work Phone: Comment on above: Pattern: Regular 08-30-2007 09:36-0500 Respiratory Rate 16 /min Taty Brown [facility] Work Phone: Comment on above: Pattern: Unlabored 08-15-2006 15:08-0500 BMI (Body Mass Index) 20.77 kg/m2 Taty Brown [facility] Work Phone: 08-15-2006 15:08-0500 Body weight 54.89 kg Taty Brown [facility] Work Phone: 08-15-2006 15:08-0500 BSA (Body Surface Area) 1.58 m2 Taty Brown [facility] Work Phone: 08-15-2006 15:08-0500 Head Circumference 0 cm Taty Brown [facility] Work Phone: 08-15-2006 15:08-0500 Height 162.56 cm Taty Brown [facility] Work Phone: Encounters Encounter Date Encounter Type Care Provider Facility Start: 07-31-2025 End: 07-31-2025 ambulatory Geo LAUREANO Facility:[facility] Start: 04-14-2025 End: 04-14-2025 Patient encounter procedure Jane PANDEY -[facility] Work Phone: Start: 04-14-2025 End: 04-14-[address] Mariza You MD Work Phone: -[facility] Start: 12-24-2024 End: 12-24-[address] Mariza You MD Work Phone: [facility] Work Phone: Start: 12-24-2024 End: 12-24-2024 Patient encounter procedure Geo LAUREANO -[facility] [place] Work Phone: Start: 12-24-2024 End: 12-24-2024 ambulatory Geo LAUREANO Facility:[facility] Start: 12-20-2024 End: 12-20-2024 Patient encounter procedure Geo LAUREANO -[facility] Work Phone: Start: 12-20-2024 End: 12-20-2024 ambulatory Mariza [place] Facility:[facility] Start: 09-11-2024 End: 09-11-[address] Mariza You MD -Outpatient [facility] Work Phone: Start: 09-11-2024 End: 09-11-2024 ambulatory Mariza [place] Facility:[facility] Start: 08-15-2024 End: 08-15-2024 ambulatory Mariza [place] Facility:[facility] Start: 08-13-2024 End: 08-13-2024 ambulatory Mariza Avelino Facility:[facility] Start: 08-13-2024 End: 08-13-2024 ambulatory Mariza Avelino Facility:[facility] Start: 12-09-2023 End: 12-09-[address] Naveen Cueto Work Phone: [facility] Work Phone: Start: 12-09-2023 End: 12-09-[address] Naveen Cueto Work Phone: [facility]-Laboratory Work Phone: Start: 11-07-2023 End: 11-07-[address] Naveen Cueto Work Phone: [facility] Work Phone: Start: 04-11-2022 End: 04-11-[address] Naveen Cueto Work Phone: [facility]-Outpatient Breast Imaging Start: 01-17-2022 Non-patient / Non-visit Dr. Quynh Cueto Work Phone: [facility] Start: 01-17-2022 End: 01-17-2022 Admission to same day surgery center Dr. Naveen Cueto Work Phone: [facility]Surgical Day [facility] Start: 01-17-2022 Non-patient / Non-visit Dr. Quynh Cueto Work Phone: [facility] Start: 01-13-2022 End: 01-13-[address] Naveen Cueto Work Phone: [facility] Start: 01-09-2022 End: 01-09-2022 Emergency department patient visit [facility]-Emergency Department Start: 04-24-2019 End: 04-24-2019 Phone Encounter [facility]y [facility] Start: 03-27-2019 End: 03-27-2019 Office outpatient visit 10 minutes [facility] Start: 06-05-2018 End: 06-05-2018 Phone Encounter Taty [facility] Start: 05-04-2018 End: 05-04-2018 Phone Encounter Taty [facility] Start: 01-15-2018 End: 01-15-2018 Annotation/Addendum Taty [facility] Start: 01-12-2018 End: 01-12-2018 Annotation/Addendum Taty [facility] Start: 01-02-2018 End: 01-02-2018 Office outpatient visit 5 minutes Taty Brown [facility] Start: 09-21-2017 End: 09-21-2017 Annotation/Addendum Taty Brown [facility] Start: 09-20-2017 End: 09-20-2017 Office outpatient visit 15 minutes Taty [facility] Start: 08-25-2017 End: 08-25-2017 Office outpatient visit 15 minutes Taty Brown [facility] Start: 06-19-2017 End: 06-19-2017 Office outpatient visit 15 minutes Taty Brown [facility] Start: 05-10-2017 End: 05-10-2017 Annotation/Addendum Taty Brown [facility] Start: 10-14-2016 End: 10-14-2016 Phone Encounter Taty Brown [facility] Start: 10-12-2016 End: 10-12-2016 Periodic preventive med est patient 40-64yrs Taty Brown [facility] Start: 08-26-2016 End: 08-26-2016 Phone Encounter Taty Brown [facility] Start: 04-13-2016 End: 04-13-2016 Annotation/Addendum Taty Brown [facility] Start: 01-25-2016 End: 01-25-2016 Annotation/Addendum Taty Brown [facility] Start: 12-31-2015 End: 12-31-2015 Phone Encounter Taty Brown [facility] Start: 11-30-2015 End: 11-30-2015 Lab Order Taty Brown [facility] Start: 11-30-2015 End: 11-30-2015 Lab Order Taty Brown [facility] Start: 11-27-2015 End: 11-27-2015 Lab Order Taty Brown [facility] Start: 10-09-2015 End: 10-09-2015 Annotation/Addendum Taty Brown [facility] Start: 09-07-2015 End: 09-07-2015 Lab Order Taty Brown [facility] Start: 09-06-2015 End: 09-06-2015 Refill Request Taty Brown [facility] Start: 06-16-2015 End: 06-16-2015 Refill Request Taty Brown [facility] Start: 06-12-2015 End: 06-12-2015 Annotation/Addendum Taty Brown [facility] Start: 05-04-2015 End: 05-04-2015 Lab Order Taty Brown [facility] Start: 01-05-2015 End: 01-05-2015 Phone Encounter Taty Brown [facility] Start: 12-19-2014 End: 12-19-2014 Refill Request Taty Brown [facility] Start: 12-15-2014 End: 12-15-2014 Lab Order Taty Brown [facility] Start: 11-11-2014 End: 11-20-2014 Office outpatient visit 5 minutes Taty [facility] Start: 11-11-2014 End: 11-11-2014 Phone Encounter Taty Brown [facility] Start: 08-19-2014 End: 08-19-2014 Refill Request Taty Brown [facility] Start: 07-03-2014 End: 07-03-2014 Prescription Refill Taty Brown [facility] Start: 06-17-2014 End: 06-17-2014 Lab Order Taty Brown [facility] Start: 06-16-2014 End: 06-16-2014 Phone Encounter Taty Brown [facility] Start: 06-06-2014 End: 06-06-2014 Historical Summary Taty Brown [facility] Start: 05-12-2014 End: 05-12-2014 Historical Summary Taty Brown [facility] Start: 04-30-2014 End: 04-30-2014 Historical Summary Taty Brown [facility] Start: 10-15-2013 End: 10-15-2013 Phone Encounter Taty Brown [facility] Start: 07-23-2013 End: 07-23-2013 Phone Encounter Taty Brown [facility] Start: 07-17-2013 End: 07-17-2013 Phone Encounter Taty Brown [facility] Start: 06-03-2013 End: 06-03-2013 Phone Encounter Taty Brown [facility] Start: 04-10-2013 End: 04-10-2013 Patient encounter procedure Taty [facility] Start: 04-01-2013 End: 04-01-2013 Historical Summary Taty Brown [facility] Start: 01-15-2013 End: 01-15-2013 Historical Summary [facility]y [facility] Start: 01-15-2013 End: 01-15-2013 Lab Order Taty [facility] Start: 11-28-2012 End: 11-28-2012 Lab Order [facility]y [facility] Start: 11-13-2012 End: 11-13-2012 Lab Order [facility]y [facility] Start: 10-18-2012 End: 10-18-2012 Phone Encounter [facility] Start: 10-08-2012 End: 10-08-2012 Lab Order [facility]y [facility] Start: 08-08-2012 End: 08-08-2012 Patient encounter procedure [facility] Start: 07-16-2012 End: 07-16-2012 Phone Encounter Taty [facility] Start: 06-15-2012 End: 06-15-2012 Annotation/Addendum Taty [facility] Start: 05-30-2012 End: 05-30-2012 Lab Order [facility]y [facility] Start: 05-01-2012 End: 05-01-2012 Historical Summary [facility]y [facility] Start: 04-30-2012 End: 04-30-2012 Phone Encounter Taty [facility] Start: 11-22-2011 End: 11-22-2011 Phone Encounter Taty [facility] Start: 11-21-2011 End: 11-21-2011 Lab Order [facility]y [facility] Start: 09-13-2011 End: 09-13-2011 Historical Summary [facility]y [facility] Start: 04-05-2011 End: 04-05-2011 Phone Encounter Taty [facility] Start: 01-11-2011 End: 01-11-2011 Phone Encounter Taty [facility] Start: 01-11-2011 End: 01-11-2011 Phone Encounter Taty [facility] Start: 10-11-2010 End: 10-11-2010 Phone Encounter Taty [facility] Start: 05-28-2010 End: 05-28-2010 Phone Encounter Taty [facility] Start: 04-14-2010 End: 04-14-2010 Historical Summary [facility] Start: 01-27-2010 End: 01-27-2010 Patient encounter procedure [facility] Start: 10-20-2008 End: 10-20-2008 Historical Summary Taty Brown [facility] Start: 06-18-2008 End: 06-18-2008 Phone Encounter Taty Brown [facility] Start: 05-28-2008 End: 05-28-2008 Patient encounter procedure Taty Brown [facility] Start: 11-20-2007 End: 11-20-2007 Error Encounter Taty Brown [facility] Start: 11-13-2007 End: 11-13-2007 Phone Encounter Taty Brown [facility] Start: 08-30-2007 End: 08-30-2007 Office outpatient visit 15 minutes Taty Brown [facility] Start: 08-15-2006 End: 08-20-2006 Office outpatient visit 5 minutes Taty Brown [facility] Procedures Date Procedure Procedure Detail Performing Clinician Start: 12-24-2024 X-ray of thoracic spine, three views Dr. Mariza You MD Work Phone: Start: 09-11-[address] Mariza You MD Work Phone: Start: 04-11-[address] Naveen Cueto Work Phone: Start: 01-17-2022 End: 01-17-[address] Naveen Cueto Work Phone: Start: 01-17-[address] Naveen Cueto Work Phone: Start: 01-17-[address] Naveen Cueto Work Phone: Start: 01-17-2022 Total cholecystectomy and exploration of common bile duct Dr. Naveen Cueto Work Phone: Start: 01-09-2022 Computed tomography of abdomen and pelvis with intravenous contrast Start: 07-14-2018 End: 07-16-2018 SCREENING MAMM (CAD), BILAT Comments: See Note; NOTES: [facility] Imaging Services [address] [place] [address] SCREENING MAMM (CAD), BILAT MR#: [id number] Acct: [id number] Name: ROLA OROPEZA Rep #: [id number] : 1975 F 43 From: Sree Corona MD PCP: Taty Brown NP Status: REG CLI Study: SCREENING MAMM (CAD), BILAT Date of Exam: 07/14/18 Exam# [id number] Ordering Dr: Taty Brown [employer]-C MAMMOGRAPHY - BILATERAL SCREENING REASON FOR EXAM: Female, 43 years old. Routine annual screening examination. PERTINENT HISTORY: Mother with breast cancer. Aunt with breast cancer. TECHNIQUE: Digital bilateral breast becca (3D mammographic acquisition) in the CC and [...] delay biopsy of a clinically suspicious abnormality. 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 DISPOSITION: Home. CONDITION: Stable. Jarrett James C: Taty Brown T: RADHAMES JOB: [id number] 08/08/16 0051 <Electronically signed by Jarrett Stark MD> Date Jarrett Stark MD Cosigner Signature (If Indicated): Date CC: Taty Brown Date Dictated: 08/07/162057 Date Transcribed: 08/07/162057 Control Board Operator: Signed Taty Brown Start: 08-07-2016 End: 08-07-2016 Discharge Instruction Comments: See Note; NOTES: [facility] Medical Records Department [address] [place] [address] Discharge Instruction 08/07/162053 MR#: [id number] Acct: [id number] Name: ROLA OROPEZA Rep #: [id number] : 1975 41 From: Jarrett Stark MD PCP: Taty Brown Status: REG [...] your Primary Care Provider. Call [facility] ([phone]) or report to the closest Emergency Room. Call 911 if necessary. 08/07/162058 <Electronically signed by Jarrett Stark MD> Date Jarrett Stark MD Cosigner Signature (If Indicated): Date CC: Taty Brown Start: 08-07-2016 End: 08-07-2016 Abdomen/Pelvis without Cont Comments: See Note; NOTES: [facility] Imaging Services [address] [place] [address] Verdana 4d Abdomen/Pelvis without Cont MR#: [id number] Acct: [id number] Name: ROLA OROPEZA Rep #: [id number] : 1975 F 41 From: Frank Alba MD PCP: Taty Brown Status: REG ER Study: Abdomen/Pelvis without Cont Date of Exam: 08/07/16 Exam# [id number] Ordering Dr: Jarrett Stark MD STUDY: CT ABDOMEN AND PELVIS [...] MD at 20:12 EST , Service support [phone], CC: Taty Brown; JARRETT STARK MD Control Board Operator: Signed Taty Brwon Start: 01-14-2015 End: 01-15-2015 Bilat Scrn Digital AND CAD Comments: See Note; NOTES: [facility] Imaging Services [address] [place] [address] Breast Imaging Report MR#: [id number] Acct: [id number] Name: ROLA OROPEZA Rep #: [id number] : 1975 F 39 From: Sree Corona MD PCP: Eleanor Kaminski MD Status: REG CLI Study: Bilat Scrn Digital AND CAD Date of Exam: 01/14/15 Exam# [id number] Ordering Dr: Eleanor Kaminski MD MAMMOGRAPHY - [...] Sree Corona MD at 8:03 EDT Tel [phone], Service support [phone], CC: Eleanor Kaminski MD Control Board Operator: Signed Eleanor Kaminski Work Phone: Start: 06-25-2014 End: 06-26-2014 Chest WITH Contrast Comments: See Note; NOTES: [facility] Imaging Services [address] [place] [address] CAT Scan Report MR#: [id number] Acct: [id number] Name: ROLA OROPEZA Rep #: [id number] : 1975 F 39 From: Wilbert Woo PCP: Eleanor Kaminski MD Status: REG CLI Study: Chest WITH Contrast Date of Exam: 06/25/14 Exam# [id number] Ordering Dr: Eleanor Kaminski MD STUDY: CT [...] MD at 7:16 EDT , Service support [phone], CC: Eleanor Kaminski MD Control Board Operator: Signed Eleanor Kaminski Work Phone: Start: 08-29-2013 End: 08-29-2013 Chest with Contrast Comments: See Note; NOTES: [facility] Imaging Services [address] [place] [address] CAT Scan Report MR#: [id number] Acct: [id number] Name: CALDERAROLA Rep #: [id number] : 1975 F 38 From: Jarrett Dyer MD PCP: Taty Brown Status: REG CLI Study: Chest with Contrast Date of Exam: 08/29/13 Exam# [id number] Ordering Dr: Eleanor Kaminski MD STUDY: CT [...] nodule. Stable emphysema and fibrosis. Electronically Signed: Jarrett Dyer M.D. at 19:41 EST , Service support [phone], CC: Taty Brown; Eleanor Kaminski MD Control Board Operator: Signed Eleanor Kaminski Work Phone: Viral antigen assay Dr. Anna Cueto Work Phone: Plan of Treatment Date Care Activity Detail Author Start: 01-17-2022 Anes intraperitoneal upper abdomen w/laps nos ANESTH SURG UPPER ABDOMEN [facility] Work Phone: Start: 01-17-2022 Laps surg cholecystectomy w/cholangiography LAPARO CHOLECYSTECTOMY/GRAPH [facility] Work Phone: Start: 01-17-2022 Patient discharge [facility] Work Phone: Start: 03-27-2019 Procedure Education Eprescribe d prescriptions (G8553) [facility] Work Phone: Start: 03-27-2019 Provider Instruction s for Treatment Follow up if no improvement or if symptoms worsen [facility] Work Phone: Start: 03-27-2019 Iadna nos amplified probe tq each organism Bordetella Pertussis PCR (91048) [facility] Work Phone: Start: 01-02-2018 Skin test tuberculos is intradermal PPD (43830) [facility] Work Phone: Comment on above: given in R odin - [id number] dav - [place] -- [place] 0.mlMLONG Start: 09-20-2017 Procedure Education Eprescribe d prescriptions (G8553) [facility] Work Phone: Start: 09-20-2017 Provider Instruction s for Treatment Follow up if no improvement or if symptoms worsen [facility] Work Phone: Start: 08-25-2017 Procedure Education Eprescribe d prescriptions (G8553) [facility] Work Phone: Start: 08-25-2017 Provider Instruction s for Treatment Follow up in 3weeks [facility] Work Phone: Start: 06-19-2017 Procedure Education Eprescribe d prescriptions (G8553) [facility] Work Phone: Start: 06-19-2017 Provider Instruction s for Treatment Follow up if no improvement or if symptoms worsen [facility] Work Phone: Start: 10-12-2016 Provider Instruction s for Treatment Follow up if no improvement or if symptoms worsen [facility] Work Phone: Start: 10-12-2016 Skin test tuberculos is intradermal PPD (82162) [facility] Work Phone: Comment on above: Lot:[id number]:01/09Do se:0.1mgRoute:idSite:abdiel [place] By:JKMVIS signed Start: 10-12-2016 Antibody rubeola RUBEOLA IgG (83969) [facility] Work Phone: Start: 10-12-2016 Iaad ia hepatitis b surface antigen HEPATITIS B SURFACE ANTIGEN (07809) [facility] Work Phone: Start: 10-12-2016 Antibody rubella RUBELLA IgG (17987) [facility] Work Phone: Start: 10-12-2016 Antibody varicella-zoster VARICELLA-ZOSTER ANTBODY (29164) [facility] Work Phone: Start: 10-12-2016 Hepatitis b surf antibody hbsab HEPATITIS B SURFACE ANTIBODY (50059) [facility] Work Phone: Start: 11-30-2015 Creatinine other source 24HR U RINE CREATININE (56171) [facility] Work Phone: Start: 11-30-2015 Protein (U) [Mass/Vol] Total P rotein,24 Hour Urine (14970) [facility] Work Phone: Start: 11-27-2015 Protein (U) [Mass/Vol] Total P rotein,24 Hour Urine (52329) [facility] Work Phone: Comment on above: with Creatnine Start: 09-07-2015 Cul bact xcpt urine blood/stool aerobic isol Anaerobic & Aerobic Culture (09965) [facility] Work Phone: Comment on above: sensitivity also Start: 05-04-2015 Fibrin dgradj produc ts d-dimer quantitative D-Dimer (88826) [facility] Work Phone: Start: 12-15-2014 Throat culture THROAT CULTURE (52835 ) [facility] Work Phone: Start: 11-20-2014 Provider Instruction s for Treatment [facility] Work Phone: Start: 11-28-2012 Culture bacterial quanttative colony count urine URINE KIMBERLY CULTURE (AL COL COUNT) (77631) [facility] Work Phone: Start: 11-13-2012 Urinalysis qual/semiquant except immunoassays URINALYSIS (26497) [facility] Work Phone: Start: 11-13-2012 Culture bct isol&prs mptv id isolate ea urine URINE KIMBERLY CULTURE-IDENTIFICATN (53242) [facility] Work Phone: Start: 10-11-2010 Albumin [Mass/Vol] ALBUMIN SERUM (82 040) [facility] Work Phone: Start: 01-27-2010 25 hydroxy includes fractions if performed CALCIFEDIOL (07198) [facility] Work Phone: Comment on above: To be drawn when com plete with vit D Start: 06-18-2008 Glucose [Mass/Vol] Glucose, PP /2 Hour (88182) [facility] Work Phone: Start: 08-30-2007 Provider Instruction s for Treatment FOLLOW UP NEEDED [facility] Work Phone: Start: 08-30-2007 TSH Qn TSH (54175) [facility] Work Phone: Start: 08-30-2007 Antibody varicella-zoster VARICELLA-ZOSTER ANTBODY (22784) [facility] Work Phone: Start: 08-30-2007 Antibody rubeola RUBEOLA ANTIB ELIJAH (86038) [facility] Work Phone: Start: 08-30-2007 Antibody rubella RUBELLA ANTIB ELIJAH (78077) [facility] Work Phone: Start: 08-30-2007 Antibody mumps MUMPS ANTIBODY (87486 ) [facility] Work Phone: Start: 08-30-2007 Urnls dip stick/tabl et rgnt non-auto w/o micrscp Urinalysis, Office (13102) [facility] Work Phone: Patient Education Discharge Inst ructions for ... ED Gallstones with Biliary Colic [facility] Work Phone: Patient referral [facility] Work Phone: Tobacco use cessatio n education [facility] Urine microalbumin/creatinine ratio measurement [facility] Work Phone: [facility] Work Phone: [facility] Work Phone: [facility] Work Phone: [facility] Work Phone[facility] Work Phone: [facility] Work Phone: [facility] Work Phone[facility] Work Phone: [facility] Work Phone: [facility] Work Phone: Immunizations Immunization Date Immunization Notes Care Provider [facility] 07-28-2020 influenza, injectable, quadrivalent, preservative free Dr. Naveen Cueto Work Phone: [facility] 05-30-2019 influenza, injectable, quadrivalent, preservative free Dr. Naveen Cueto Work Phone: [facility] 05-30-2018 influenza, injectable, quadrivalent, preservative free Dr. Naveen Cueto Work Phone: [facility] 08-30-2007 tetanus and diphtheria toxoids, adsorbed, preservative free, for adult use (2 Lf of tetanus toxoid and 2 Lf of diphtheria toxoid) Taty Brown [facility] Work Phone: Payers Date Payer Category Payer Self-pay [id number] 2014 Unknown [id number] Unknown [facility] Unknown [id number] Unknown [id number] Unknown [id number] Unknown [id number] Unknown [id number] Unknown [id number] Unknown [id number] Unknown [id number] Social History Date Type Detail Facility [facility] Work Phone: Start: 01-09-2022 End: 11-07-2023 Tobacco smoking status NHIS Unknown if ever smoked [facility] Start: 1975 Sex Assigned At Female [facility] Start: 11-07-2023 Tobacco smoking stat us ALIS Smokes tobacco daily (finding) [facility] Start: 12-30-2024 Sex Female (finding) [facility] Medical Equipment Procedure Code Equipment Code Equipment Original Text Equipment Identifier Dates Total cholecystectomy with exploration of common bile duct Ligation clip, synthetic polymer, non-bioabsorbable [id number] FDA Start: 01-17-2022 Goals Date Patient Goal Desired Activity /State Mental Status Date Assessment Result Facility 01-17-2022 Cognitive function Voice/Name [facility] Work Phone: Radiology Diagnostic study note 12-25-2024 Note Date & Type Note Facility 12-25-2024 Radiology Diagnostic study note [facility] Imaging Services [address] [place], [place] [id number] Thoracic Spine 3 Views MR#: [id number] Acct: [id number] Name: JOHNNAGWEN Rep #: [id number] : 1975 F 49 From: Derrek Christina MD PCP: Dr. Mariza You MD Status: REG CLI Study:Thoracic Spine 3 Views Date of Exam: 12/24/24 Exam# [id number] Ordering Dr: Donald Alfonso PA PROCEDURE: THORACIC SPINE 3 VIEWS 12/24/2024 REASON FOR EXAM: PAIN TECHNIQUE: Two views of the thoracic spine, AP and 2 lateral, 3 total images COMPARISON: None available FINDINGS: 12 rib-bearing thoracic vertebral body types identified. T1 and T2 are not wellseen on the lateral views, appear within limits on the AP view. No evidence of fracture or malalignment identified. The disc spaces appear within limits as visualized. No osseous lesion identified. RAD/Thoracic Spine 3 Views IMPRESSION: T1 and T2 are not well seen on the lateral views, appear within limits on the APview. No evidence of fracture or malalignment identified. The disc spaces appear within limits as visualized. No osseous lesion identified. Reading Location: [facility] CC: Dr. Mariza You MD; GEORGI Sexton ~ Control Board Operator: Signed [facility] Evaluation note 12-20-2024 Note Date & Type Note Facility 12-20-2024 Evaluation note Diagnosis Onset Date Resolution Mid back pain acute December 20, 2024 2:22pm [facility] Work Phone: Chief complaint+Reason for visit Narrative Note Date & Type Note Facility Chief complaint+Reason for visit Narrative Reason for Visit Immunization decline d Screening for colon cancer Essential tremor Smokes cigarettes Establishing care with new doctor, encounter for Type 2 diabetes mellitus Autoimmune disease Essential hypertension Vitamin D deficiency [facility] Work Phone: Evaluation note Note Date & Type Note Facility Evaluation note No assessment information availa ble [facility] Work Phone: Evaluation note Note Date & Type Note Facility Evaluation note Diagnosis Onset Date Immunization declined noneac tive Screening for colon cancer n oneactive Essential tremor noneactive Smokes cigarettes noneactive Establishing care with new d octor, encounter for noneactive Type 2 diabetes mellitus non eactive Autoimmune disease noneactiv e Essential hypertension nonea ctive Vitamin D deficiency noneact esme [facility] Work Phone: Reason for referral (narrative) Note Date & Type Note Facility Reason for referral (narrative) No reason for referral information available [facility] Work Phone: Family History No Family History Records FoundUnknown Family Member Name Dates Details Brother 1 [...] Mother Comments:CAD,HTN, Br Ca, Lup us Status:Active Relationship Condition Age at Onset Recorded Date/[place] mother Autoimmune disorder Unknown Malignant neoplasm of breast Unknown Parkinson's disease Unknown Hypertension Unknown sister Autoimmune disorder Unknown aunt Malignant neoplasm of breast Unknown brother Diabetes mellitus Unknown father Diabetes mellitus Unknown Myocardial infarction 48 Cerebrovascular accident (CVA) Unknown Instructions Name Dates Details How to access [...] Instructions Start:20-Nov-2014 Instruction Type:Provider Instructions for Treatment Chief Complaint and Reason for Visit Chief Complaint abd pain Chief Complaint abd pain 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 [employer] Chief Complaint abd pain 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 [employer] SCREENING Chief Complaint Admit Date SCREENING September 11, 2024 10:11am back pain xfew weeks December 20, 2024 2: 22pm E-ORDER December 24, 2024 2:39 pm Reason for Visit Admit Date Mid back pain December 20, 2024 2:2 2pm Chief Complaint Admit Date back pain xfew weeks December 20, 2024 2: 22pm E-ORDER December 24, 2024 2:39 pm 3 month check April 14, 2025 11:0 7am Advance Directives No Advanced Directives Records Found Advance Directive Response Recorded Date/ Time Living Will No January 09, 2022 3:50am Power of Lagging Machine Operator No January 09 3:50am Advance Directive Response Recorded Date/ Time Living Will No January 14, 2022 12:58pm Power of Lagging Machine Operator No January 14 12:58pm Summary Purpose Additional Source Comments Goals (unrecognized section and content) Goals may be documented in a n alternate sectionGoals may be documented in an alternate sectionGoals may be documented in an alternate sectionGoals may be documented in an alternate sectionGoals may be documented in an alternate section Care Teams (unrecognized sec tion and content) Team Status: Active Member Role Status Dates Dr. Naveen Cueto MD Family Provider Active Dr. Mariza You MD Primary Care Provider Active Team Status: Inactive Member Role Status Dates Dr. Naveen Cueto MD Primary Care Provider, [facility] Provider Active Dr. Mariza You MD Attending Provider Active Team Status: Inactive Member Role Status Dates Dr. Mariza You MD Primary Care Pro vider, Attending Provider, Referring Provider Active Team Status: Active Member Role Status Dates Dr. Luis Cueto MD Family Provider Active Dr. Mariza You MD Primary Care Provider Active Team Status: Inactive Member Role Status Dates Dr. Mariza You MD Primary Care Provider Active Start: September 11, 2024 End: September 11, 2024 Dr. Mariza You MD Attending Provider Active Start: September 11, 2024 End: September 11, 2024 Dr. Mariza You MD Referring Provider Active Start: September 11, 2024 End: September 11, 2024 Team Status: Inactive Member Role Status Dates Dr. Mariza You MD Primary Care Provider Active Start: December 20, 2024 End: December 20, 2024 Dr. Mariza You MD Referring Provider Active Start: December 20, 2024 End: December 20, 2024 GEORGI Edwards Attending Provider Active St art: December 20, 2024 End: December 20, 2024 Team Status: Inactive Member Role Status Dates Dr. Mariza You MD Primary Care Provider Active Start: December 24, 2024 End: December 24, 2024 GEORGI Edwards Attending Provider Active St art: December 24, 2024 End: December 24, 2024 GEORGI Edwards Referring Provider Active St art: December 24, 2024 End: December 24, 2024 Team Status: Active Member Role/Relationship Status Dates Dr. Luis Cueto MD Family Provider Active Dr. Mariza You MD Primary Care Provider Active Team Status: Inactive Member Role/Relationship Status Dates Dr. Mariza You MD Primary Care Provider Active Start: December 20, 2024 End: December 20, 2024 Dr. Mariza You MD Referring Provider Active Start: December 20, 2024 End: December 20, 2024 GEORGI Edwards Attending Provider Active St art: December 20, 2024 End: December 20, 2024 Team Status: Inactive Member Role/Relationship Status Dates Dr. Mariza You MD Primary Care Provider Active Start: December 24, 2024 End: December 24, 2024 GEORGI Edwards Attending Provider Active St art: December 24, 2024 End: December 24, 2024 GEORGI Edwards Referring Provider Active St art: December 24, 2024 End: December 24, 2024 Team Status: Inactive Member Role/Relationship Status Dates Dr. Mariza You MD Primary Care Provider Active Start: April 14, 2025 End: April 14, 2025 Dr. Mariza You MD Referring Provider Active Start: April 14, 2025 End: April 14, 2025 DANNIE Soto Attending Provider Active Start: April 14, 2025 End: April 14, 2025 INFORMATION SOURCE (unrecogn ized section and content) DATE CREATED AUTHOR 08/02/2025 [facility] FOR RECORDS PERTAINING TO PATIENTS WHO ARE [...] BE BASED ON THE PRIMARY CLINICAL RECORDS. [facility] [employer] [facility]. provides no warranty or guarantee of the accuracy or completeness of information in this document.
[2025-08-09 08:50] LABS: Hematocrit 47.1 % (37-47); Hemoglobin 15.5 g/dL (12.0-15.0); Mean Corp Hgb Conc 32.9 g/dL (32-36); Mean Corpuscular Volume 89.9 fL (81-99); Mean Platelet Vol. 10.9 fl (6.2-12.0); Platelet Count 317 K/mm3 (150-450); RBC Distribution Width CV 13.0 % (11.6-14.6); RBC Distribution Width SD 42.5 fl (35.1-43.9); Red Blood Count 5.24 M/mm3 (4.2-5.4); White Blood Count 10.4 K/mm3 (4.4-11.0)
[2025-08-09 09:22] LABS: Albumin, Serum 4.4 g/dL (3.5-5.0); BUN 19 mg/dL (4-19); BUN/Creat Ratio 25.5 RATIO (10-20); Globulin 3.0 g/dL (2.2-4.2); Glucose 104 mg/dL (70-99)
[2025-08-09 09:23] LABS: AST(SGOT) 15 U/L (<=31); Alanine Aminotransfer ALT/SGPT 15 U/L (<=34); Alkaline Phosphatase 109 U/L (35-104); Anion Gap 10 (5-15); Calcium,Total 9.9 mg/dL (7.6-11.0); Carbon Dioxide 22.4 mmol/L (21.0-32.0); Chloride 106 mmol/L (98-108); Ferritin 278 ng/mL (22-378); Iron 105 ug/dL (50-170); Potassium 4.0 mmol/L (3.3-5.1); Vitamin B12 264 pg/mL (180-914); Vitamin D,25 Hydroxy 18.0 ng/mL (30-100)
[2025-08-12 08:09] LABS: ANTINUCLEAR ANTIBODIES DIRECT Positive (Negative); Anti-Chromatin <0.2 AI (0.0-0.9); Anti-Jo <0.2 AI (0.0-0.9); Anti-dsDNA Ab 1 IU/mL (0-9); SJOGREN'S Anti-SS-A test < 0.2 AI (0.0-0.9); SJOGREN'S Anti-SS-B test < 0.2 AI (0.0-0.9)
== END | disposition home or self-care (01) ==
LOC: LAB 08:26
PROVIDERS: PCP Internal Medicine; Referring Provider Physician Assistant; Visit Provider Physician Assistant
DX: R53.82 Chronic fatigue, unspecified (principal)
CPT/HCPCS: 36415; 80053; 82306; 82607; 82728; 83540; 84443; 85027; 85652; 86038; 86225; 86235